=== PATIENT | male | born 1940 | race African-American/Black ===

== ENCOUNTER 2017-05-24 12:38 | Observation (INO) | payer MEDICARE ==
[2017-05-24 13:47] LABS: #Eosinphils 0.1 thou/uL (0.0-0.7); #Lymphocytes 1.9 thou/uL (1.20-3.40); #Monocytes 0.5 thou/uL (0.11-0.59); #Neutrophils 2.8 thou/uL (1.40-6.50); %Basophils 0.3 % (0.0-1.0); %Lymphocytes 35.8 % (21.0-51.0); %Monocytes 8.5 % (0.0-10.0); Hematocrit 38.8 % (42.0-52.0); Mean Platelet Volume 6.8 fL (7.4-10.4); Red Blood Cell (RBC) Count 4.46 mill/uL (4.70-6.10); White Blood Cell (WBC) Count 5.3 thou/uL (4.8-10.8)
--- NOTE | 2017-05-24 13:52 | RAD ---
CHEST ONE VIEW HISTORY: Chest pain. COMPARISON: 02/01/2015 FINDINGS: Cardiac silhouette is magnified by projection. Left hemidiaphragm remains elevated with atelectasis at the left lung base. Pulmonary vasculature is engorged. No evidence of pneumothorax. There are p rominent degenerative changes of each shoulder. 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 IMPRESSION: Chronic type findings are stable. POS: [facility]
[2017-05-24 14:11] LABS: ALT (SGPT) 10 U/L (8-55); AST (SGOT) 15 U/L (5-34); Alkaline Phosphatase 57 U/L (40-150); Anion Gap 11 mmol/L (10-20); BUN (Urea Nitrogen) 22 mg/dL (8.4-25.7); Bilirubin, Total 0.9 mg/dL (0.2-1.2); CK (CPK) 328 U/L (30-200); Calc. Creatinine Clearance 0 mL/min (70-130); Calcium 9.7 mg/dL (7.8-10.44); Carbon Dioxide 28 mmol/L (23-31); Chloride 105 mmol/L (98-107); Estimated GFR-MDRD 64; Protein, Total 7.1 g/dL (5.8-8.1)
[2017-05-24 14:15] LABS: Troponin I 0.013 ng/mL (< 0.028)
--- NOTE | 2017-05-24 17:29 | HP ---
PRIMARY CARE PHYSICIAN: Dr. Ann Freeman. PRIMARY REPLANTING MACHINE CREWMAN: Dr. Williamson. REASON FOR ADMISSION: Chest pain. HISTORY OF PRESENT ILLNESS: A 76-year-old -[place]ian male with history of hypertension, dyslip idemia, diabetes type 2, coronary artery disease, and benign enlargement of prostate, who came to the emergency room for evaluation of chest pain on the right side. The patient reports that for the t one week he was experiencing right breast pain, which was getting worse with palpation. At the time, the patient was experiencing deep pain in his right chest, which was related with exertion an d getting worse with deep breathing, so he was experiencing two different type of pain, one was super ficial and one was deep and he was concerned about heart pain and he was also concerned about maligna ncy and that is why this morning he called his primary care physician who made appointment on coming Sunday and at the same time she also advised to go to the emergency room for evaluation. The patient reports that he denies any shortness of breath, cough, pleuritic chest pain. He denies a ny palpitation, dizziness, syncope. He denies any orthopnea, PND or leg swelling. The patient had a cardiac catheterization with stent placement in 1999 and since then he never had any cardiac testing . He denies any fever or chills. He denies any UTI symptoms. He denies any constipation, diarrhea, melena or hematochezia. Today in the emergency room, patient had full workup done including CBC, BMP, and all came back wu l. His cardiogram was also unremarkable. ALLERGIES: AVOCADO and BANANA. CURRENT HOME MEDICATIONS: Lasix 20 mg p.o. b.i.d., Zocor 20 mg p.o. b.i.d., Coreg 12.5 mg twice yefri y, ramipril 5 mg twice daily, Proscar 1 tablet p.o. daily, Aldactone 25 mg p.o. daily, aspirin 81 mg p.o. daily, Xalatan eyedrops daily, metformin 500 mg p.o. b.i.d., [place] p.r.n., Flomax 0.4 mg p.o. da linh, dorzolamide/timolol ophthalmic drops b.i.d., Sytron oral solution 10 mL 4 times daily. REVIEW OF SYSTEMS: The following complete review of systems was negative, unless otherwise mentioned in the HPI or below: Constitutional: Weight loss or gain, ability to conduct usual activities. Skin: Rash, itching. Eyes: Double vision, pain. ENT/Mouth: Nose bleeding, neck stiffness, pain, tenderness. Cardiovascular: Palpitations, dyspnea on exertion, orthopnea. Respiratory: Shortness of breath, wheezing, cough, hemoptysis, fever or night sweats. Gastrointestinal: Poor appetite, abdominal pain, heartburn, nausea, vomiting, constipation, or diarr hea. Genitourinary: Urgency, frequency, dysuria, nocturia. Musculoskeletal: Pain, swelling. Neurologic/Psychiatric: Anxiety, depression. Allergy/Immunologic: Skin rash, bleeding tendency. Please see my HPI for pertinent positive and negative. All other review of systems reviewed and nega tive except as mentioned in the HPI. PAST MEDICAL HISTORY: History of myocardial infarction in 1999, required total 3 cardiac stent; blin dness in left eye, cataract surgery, glaucoma; diabetes, type 2; hypertension; dyslipidemia; history of diverticulitis; chronic constipation; benign enlargement of prostate; history of TIA. PAST SURGICAL HISTORY: Lithotripsy for kidney stone, left knee surgery, carpal tunnel surgery, septo plasty in 1972, lumbar spine surgery in 2006. PAST PSYCHIATRIC HISTORY: Reviewed and negative. SOCIAL HISTORY: The patient is . He lives at home with his . No history of tobacco, alc ohol or illicit drug abuse. FAMILY HISTORY: Significantly positive for coronary artery disease among several family members. EMERGENCY ROOM COURSE: Reviewed. The patient is given aspirin 325 mg. PHYSICAL EXAMINATION: VITAL SIGNS: On arrival, blood pressure 113/74, pulse 80, respiratory rate 14, temperature 98.5, sat uration 99% on room air, weight 85.2 kilogram. GENERAL: The patient is currently alert, awake, no obvious acute distress. HEAD: Normocephalic, atraumatic. EYES: Pupils are round and reactive to light. Extraocular muscles are intact. ENT: Oropharynx within normal limits. Moist mucous membranes. No oral lesions. No pharyngeal eryt emilie, no exudate. NECK: Supple, no JVD, no thyromegaly, no carotid bruits. LUNGS: Clear to auscultation without any rhonchi or rales. CARDIAC: S1, S2 regular. No murmur, no gallop, no rub. ABDOMEN: Soft, bowel sounds present, nontender, nondistended. No organomegaly, no mass. No suprapu bic tenderness. BACK: Unremarkable. No CVA tenderness. BREAST: Right breast is tender on superficial palpation, but the patient also has deeper pain, which he is not able to describe and that is not reproducible. Left wrist within normal limits. There is no palpable lump on both breast and there is no surrounding erythema or warmth noted. NEUROLOGIC: Nonfocal examination. The patient moves all 4 limbs. Plantar bilateral flexor. PSYCHIATRIC: Normal affect. SKIN: No skin rash. HEMATOLOGIC: No lymphadenopathy. SIGNIFICANT LABORATORY DATA: EKG based on my review, complete right bundle branch block, left atrial enlargement. Chest x-ray based on my review, chronic changes without any acute process. The patien t has elevated left hemidiaphragm with atelectasis of the left lung base. CBC: WBC 5.3, hemoglobin 11.7, platelet 214. BMP: Sodium 139, potassium 4.8, chloride 105, carbon dioxide 28, anion gap 11, BUN 22, creatinine 1.31, glucose 96, calcium 9.7. LFT: AST 15, ALT 10, al kaline phosphatase 57, albumin 4.1, CK 328, CK-MB 4.9, troponin I 0.013. ASSESSMENT AND PLAN: IMPRESSION: 1. Chest pain. The patient has 2 type of chest pain. One chest pain on the right side which is mos t likely mastalgia and I am suspecting fatty tissue related inflammation in his breast. He does not have any surrounding erythema or any suggestive of infection, but he has reproducible pain on the rig ht breast that is clear cut suspecting fatty tissue inflammation related pain. He has different pain , which is deeper on the right side, which he is worried about, which comes and goes and that is why he is worried about heart pain and to rely history of mental stress. He would like to go for stress test to rule out any cardiac etiology and that is why we will try to perform exercise Cardiolite stre ss test. This patient has underlying chronic low back pain. He may not be able to walk on treadmill completely, but he wants to try walking stress test. If he is not able to finish the walking stress test, then we will convert to chemical stress test. We will do serial cardiac enzymes x3 and we curt l check lipid profile for risk stratification. Meanwhile, we will control his pain with the pain med ication. 2. Coronary artery disease with history of stent. The patient is currently evaluated for cardiac wo rkup. We will continue with aspirin 81 mg p.o. daily. We will also continue on nitroglycerin on p.r .n. basis. We will hold on Coreg therapy because we are planning to do stress test tomorrow and afte r stress test we will resume Coreg and ramipril therapy. 3. Dyslipidemia. Check lipid profile tomorrow and continue Zocor 40 mg p.o. at bedtime. 4. Hypertension, currently well controlled. Continue ramipril 5 mg twice daily, Aldactone 25 mg p.o . daily. 5. Benign enlargement of prostate. We will continue Proscar and Flomax as per home dosage. 6. Glaucoma. We will continue Xalatan eyedrops and dorzolamide/timolol ophthalmic eyedrops as per h ome dosage. 7. Chronic kidney disease, stage 3. We will monitor renal function and avoid nephrotoxic agent. 8. Anemia, normocytic, normochromic. Continue multivitamin therapy and ferrous sulfate on a daily b asis after discharge. 9. Deep venous thrombosis prophylaxis not needed because we are expecting discharge in 24 hours. 10. Gastrointestinal prophylaxis, Pepcid 20 mg p.o. b.i.d. CODE STATUS: The patient is FULL CODE. The patient's is surrogate decision maker. Disposition plan based on stress test results, likely within 24 hours. Plan of care discussed with t fatemeh patient and at bedside in the emergency room and answered all their questions.
[2017-05-24] MEDS ORDERED: Nitroglycerin 0.4 MG TAB (25 Tab Bottle) PO PRN (17:38)
[2017-05-24] MEDS ORDERED: Ondansetron HCl/PF 4 MG/2 ML Vial IVP PRN (17:38)
[2017-05-24] MEDS ORDERED: Dextrose 5% in Water 1,000 ML IV PRN (17:38)
[2017-05-24] MEDS ORDERED: Acetaminophen 325 MG TAB PO PRN (17:38)
[2017-05-24] MEDS ORDERED: HYDROcodone/Acetaminophen 5/325 mg Tablet PO PRN (17:38)
[2017-05-24] MEDS ORDERED: Dextrose 50% Abboject 50 ML SYRINGE SLOW IVP PRN (17:38)
[2017-05-24] MEDS ORDERED: Sodium Chloride 0.65% Nasal 44 ML BOT EA NARE PRN (17:38)
[2017-05-24] MEDS ORDERED: HumaLOG 300 UNITS/3 ML VIAL SC PRN ×2 (17:38)
[2017-05-24] MEDS ORDERED: Zolpidem Tartrate 5 MG TAB PO PRN (17:38)
[2017-05-24] MEDS ORDERED: hydrALAZINE 20 MG/ML VIAL SLOW IVP PRN (17:38)
[2017-05-24] MEDS ORDERED: Eucerin (Mineral Oil/Petrolatum,White) 30 gm Jar TOP PRN (17:38)
[2017-05-24] MEDS ORDERED: Mag-Al 1200 mg/1200 mg/30 ML UDCUP PO PRN (17:38)
[2017-05-24] MEDS ORDERED: Diabetic Tussin 200 MG/10 ML UDCUP PO PRN (17:38)
[2017-05-24] MEDS ORDERED: Senokot 8.6 MG TAB PO PRN (17:38)
[2017-05-24] MEDS ORDERED: Milk Of Magnesia 30 ML UDCUP PO PRN (17:38)
[2017-05-24] MEDS ORDERED: Ondansetron ODT 4 MG TAB PO PRN (17:38)
[2017-05-24] MEDS ORDERED: Loperamide HCl 2 MG CAP PO PRN (17:38)
[2017-05-24 17:46] VITALS: BMI 26.4
[2017-05-24] MEDS ORDERED: metFORMIN 500 MG TAB PO SCH (18:00)
[2017-05-24 19:33] LABS: Troponin I 0.013 ng/mL (< 0.028)
[2017-05-24] MEDS: Famotidine 20 MG TAB PO SCH (21:00)
[2017-05-24] MEDS ORDERED: Tamsulosin HCl 0.4 MG CAP PO SCH (21:00)
[2017-05-24] MEDS ORDERED: Simvastatin 40 MG TAB PO SCH (21:00)
[2017-05-24] MEDS: Ramipril 5 MG CAP PO SCH (21:01)
[2017-05-24] MEDS: Dorzolamide HCl/Timolol Maleate 2%/0.5% Ophth Soln 10 ml Bottle R EYE SCH (21:02)
[2017-05-24] MEDS: Dorzolamide HCl/Timolol Maleate 2%/0.5% Ophth Soln 10 ml Bottle L EYE SCH (21:02)
[2017-05-24] MEDS: Latanoprost 0.005% Ophth Soln 2.5 ml Bottle EA EYE SCH (21:02)
[2017-05-24 22:31] LABS: Troponin I 0.016 ng/mL (< 0.028)
[2017-05-25] MEDS ORDERED: Spironolactone 25 MG TAB PO SCH (08:00)
[2017-05-25] MEDS ORDERED: Tamsulosin HCl 0.4 MG CAP PO SCH (09:00)
[2017-05-25] MEDS ORDERED: Aspirin 325 MG TAB PO SCH (09:00)
[2017-05-25] MEDS ORDERED: Finasteride 5 MG TAB PO SCH (09:00)
[2017-05-25] MEDS: metFORMIN 500 MG TAB PO SCH ×2 (09:07→12:29)
--- NOTE | 2017-05-25 09:08 | PDOC.PN ---
- Subjective Encounter Start Date: 05/25/17 Encounter Start Time: 07:20 -: old records requested/rev Patient seen and examined. No new complaints. No overnight events - Objective Resuscitation Status: Resuscitation Status FULL:Full Resuscitation MAR Reviewed: Yes Vital Signs & Weight: Vital Signs (12 hours) Temp Pulse Resp BP BP Pulse Ox 05/25/17 08:07 98.7 F 66 16 05/25/17 07:44 97.9 F 61 16 96/55 L 98 05/25/17 03:10 98.7 F 66 16 104/56 L 96 05/24/17 23:35 98.3 F 72 16 100/57 L 98 Weight Weight 188 lb 14.4 oz I&O: 05/24/17 05/25/17 05/26/17 06:59 06:59 06:59 Intake Total 300 Output Total 400 125 Balance -100 -125 Result Diagrams: 05/24/17 11:34 05/24/17 11:34 Additional Labs: Accuchecks 05/25/17 05/24/17 05/24/17 05:42 20:34 18:46 POC Glucose 76 154 H 78 EKG Reviewed by me: Yes (nsr) Phys Exam - Physical Examination Constitutional: NAD HEENT: PERRLA, moist MMs, sclera anicteric Neck: no JVD, supple Respiratory: no wheezing, no rales, no rhonchi Cardiovascular: RRR, no significant murmur, no rub Gastrointestinal: soft, non-tender, no distention, positive bowel sounds Musculoskeletal: no edema, pulses present Neurological: non-focal, normal sensation, moves all 4 limbs Lymphatic: no nodes Psychiatric: normal affect, A&O x 3 Skin: no rash, normal turgor Dx/Plan (1) Chest pain Code(s): R07.9 - CHEST PAIN, UNSPECIFIED Status: Acute (2) BPH (benign prostatic hyperplasia) Code(s): N40.0 - BENIGN PROSTATIC HYPERPLASIA WITHOUT LOWER URINRY TRACT SYMP Status: Chronic (3) CAD (coronary artery disease) Code(s): I25.10 - ATHSCL HEART DISEASE OF [place] CORONARY ARTERY W/O ANG PCTRS Status: Chronic (4) Diabetes type 2, controlled Code(s): E11.9 - TYPE 2 DIABETES MELLITUS WITHOUT COMPLICATIONS Status: Chronic (5) Glaucoma Code(s): H40.9 - UNSPECIFIED GLAUCOMA Status: Chronic (6) Hypertension Code(s): I10 - ESSENTIAL (PRIMARY) HYPERTENSION Status: Chronic - Plan cont current plan of care * stress test today, if normal, will DC to home * medication reviewed as below * symptomatic treatment. Review of Systems - Review of Systems ENT: negative: Ear Pain, Ear Discharge, Nose Pain, Nose Discharge, Nose Congestion, Mouth Pain, Mouth Swelling, Throat Pain, Throat Swelling, Other Respiratory: negative: Cough, Dry, Shortness of Breath, Hemoptysis, SOB with Excertion, Pleuritic Pain, Sputum, Wheezing Cardiovascular: negative: Chest Pain, Palpitations, Orthopnea, Paroxysmal Noc. Dyspnea, Edema, Light Headedness, Other Gastrointestinal: negative: Nausea, Vomiting, Abdominal Pain, Diarrhea, Constipation, Melena, Hematochezia, Other Genitourinary: negative: Dysuria, Frequency, Incontinence, Hematuria, Retention , Other Musculoskeletal: negative: Neck Pain, Shoulder Pain, Arm Pain, Back Pain, Hand Pain, Leg Pain, Foot Pain, Other - Medications/Allergies Allergies/Adverse Reactions: Allergies Allergy/AdvReac Type Severity Reaction Status Date / Time avocado Allergy THROAT Verified 08/31/14 08:55 SWELLING banana Allergy THROAT Verified 08/31/14 08:55 SWELLING Medications: Current Medications Acetaminophen (Tylenol) 650 mg PO Q4H PRN PRN Reason: Headache/Fever or Pain Hydrocodone Bitart/Acetaminophen ([place] 5/325) 1 tab PO Q4H PRN PRN Reason: Moderate Pain (4-6) Last Admin: 05/24/17 19:51 Dose: 1 tab Al Hydroxide/Mg Hydroxide (Maalox) 30 ml PO Q6H PRN PRN Reason: Heartburn or Indigestion Aspirin (Aspirin) 325 mg PO DAILY [facility] Dextrose/Water (Dextrose 50%) 25 gm SLOW IVP PRN PRN PRN Reason: Hypoglycemia Dorzolamide/Timolol (Cosopt 2-0.5% Ophth Soln) 1 drop L EYE BID [facility] Last Admin: 05/24/17 21:02 Dose: Not Given Dorzolamide/Timolol (Cosopt 2-0.5% Ophth Soln) 1 drop R EYE BID [facility] Last Admin: 05/24/17 21:02 Dose: Not Given Famotidine (Pepcid) 20 mg PO BID [facility] Last Admin: 05/24/17 21:00 Dose: 20 mg Finasteride (Proscar) 5 mg PO DAILY [facility] Glucagon (Glucagon) 1 mg IM PRN PRN PRN Reason: Hypoglycemia Guaifenesin (Robitussin Sf) 200 mg PO Q4H PRN PRN Reason: Cough Hydralazine HCl (Apresoline) 10 mg SLOW IVP Q4H PRN PRN Reason: Systolic BP > 180 Dextrose/Water (D5w) 1,000 mls @ 0 mls/hr IV .Q0M PRN; As Directed PRN Reason: Hypoglycemia Insulin Human Lispro (Humalog) 0 units SC .MODERATE SLIDING SC PRN PRN Reason: Moderate Correctional Scale Insulin Human Lispro (Humalog) 0 units SC .BEDTIME SLIDING SC PRN PRN Reason: Bedtime Correctional Scale Latanoprost (Xalatan 0.005% Ophth Soln) 1 drop EA EYE [facility] Last Admin: 05/24/17 21:02 Dose: Not Given Loperamide HCl (Imodium) 2 mg PO PRN PRN PRN Reason: Diarrhea/Loose Stools Magnesium Hydroxide (Milk Of Magnesium) 30 ml PO DAILYPRN PRN PRN Reason: Constipation Metformin HCl (Glucophage) 500 mg PO BID-[facility] Last Admin: 05/25/17 09:07 Dose: Not Given Mineral Oil/White Petrolatum (Eucerin Cream) 0 gm TOP BIDPRN PRN PRN Reason: Dry Skin Nitroglycerin (Nitrostat) 0.4 mg PO Q5MIN PRN PRN Reason: Chest Pain Ondansetron HCl (Zofran Odt) 4 mg PO Q6H PRN PRN Reason: Nausea/Vomiting Ondansetron HCl (Zofran) 4 mg IVP Q6H PRN PRN Reason: Nausea/Vomiting Ramipril (Altace) 5 mg PO BID [facility] Last Admin: 05/24/17 21:01 Dose: 5 mg Rosuvastatin Calcium (Crestor) 5 mg PO BID [facility] Last Admin: 05/24/17 21:01 Dose: 5 mg Senna (Senokot) 2 tab PO HSPRN PRN PRN Reason: Constipation Sodium Chloride ([place] 0.65%) 0 ml EA NARE QIDPRN PRN PRN Reason: Nasal Congestion Spironolactone (Aldactone) 25 mg PO QAM-[facility] Tamsulosin HCl (Flomax) 0.4 mg PO HS [facility] Last Admin: 05/24/17 21:01 Dose: 0.4 mg Zolpidem Tartrate (Ambien) 5 mg PO HSPRN PRN PRN Reason: Insomnia
[2017-05-25] MEDS: Dorzolamide HCl/Timolol Maleate 2%/0.5% Ophth Soln 10 ml Bottle L EYE SCH (11:37)
[2017-05-25] MEDS: Famotidine 20 MG TAB PO SCH (11:37)
[2017-05-25] MEDS: Ramipril 5 MG CAP PO SCH (11:38)
[2017-05-25] MEDS: Dorzolamide HCl/Timolol Maleate 2%/0.5% Ophth Soln 10 ml Bottle R EYE SCH (11:38)
[2017-05-25 11:46] VITALS: BP 99/54; TEMP 97.6
--- NOTE | 2017-05-25 11:46 | DIS ---
DATE OF ADMISSION: 05/24/2017 DATE OF DISCHARGE: 05/25/2017 PRIMARY CARE PHYSICIAN: Ann Freeman M.D. DISCHARGE DISPOSITION: Home. PRIMARY DISCHARGE DIAGNOSIS: Chest pain, ruled out acute coronary syndrome. SECONDARY DISCHARGE DIAGNOSES: Benign enlargement of prostate; coronary artery disease; diabetes, type 2; glaucoma; hypertension. PRIMARY PROCEDURE/OPERATION: None. RADIOLOGICAL INVESTIGATION: Chest x-ray normal. Stress test result pending. SIGNIFICANT LABORATORY DATA: WBC 5.3, hemoglobin 11.7, platelets 214, sodium 139, creatinine 1.31. CK 328. Cardiac enzymes negative x3. Electrolytes normal. LFTs normal. LDL 51, cholesterol 108, triglyceride 56, HDL 46. DISCHARGE MEDICATIONS: The patient will continue all his previous medications, aspirin 81 mg p.o. daily, Coreg 12.5 mg p.o. b.i.d., Cosopt ophthalmic drop b.i.d., Proscar 5 mg p.o. at bedtime, Lasix 20 mg daily, [place] 7.5 one tablet p.o. as directed p.r.n., Xalatan eye drops at bedtime, metformin 500 mg p.o. b.i.d., ramipril 5 mg p.o. b.i.d., Crestor 5 mg p.o. b.i.d., Aldactone 25 mg p.o. daily, Flomax 0.4 mg p.o. at bedtime. CONTRAINDICATIONS: None. CODE STATUS: FULL CODE. INPATIENT CONSULTANTS: Cardiology ALLERGIES: AVOCADO AND BANANA. DISCHARGE PLAN: Post hospital, the patient will follow up with primary care physician in 1 week. HOSPITAL COURSE: A 76-year-old male who was admitted for chest pain. Please see my HPI for further details. His chest pain description was noncardiac. For benefit of doubt, we tried to do stress test. His EKG was unremarkable. His cardiac enzymes were negative. His telemetry remained unremarkable. His pain was controlled with pain medication. He underwent stress test today. If stress is negative, then we will consider discharging him home later on today with the same home medications. The patient is seen and examined at bedside today. Please see my progress note from today for further details. stress test showed some geovany-nfarct ischemia, so cardiology consulted. stress test is unchanged from previous as per cardiology and they cleared for discharge. [facility]
[2017-05-25] MEDS: Latanoprost 0.005% Ophth Soln 2.5 ml Bottle EA EYE SCH (12:29)
--- NOTE | 2017-05-25 14:11 | NM ---
NUCLEAR MEDICINE CARDIAC STRESS TEST WITH EJECTION FRACTION: HISTORY: Chest pain, hypertension, dyslipidemia, diabetes, coronary artery disease. COMPARISON: None. TECHNIQUE: Stress and rest performed after the intravenous administration of 33 and 9.8 mCi Technetium 99m sesta mibi intravenously, respectively. FINDINGS: There is a large scar of the inferior wall and anterior wall of the lateral ventricle with periinfarc t ischemia of the anterior wall at the base. There akinesia of the apex and mid portion of the later al ventricle. The ejection fraction is 35%. IMPRESSION: Large volume scar of the inferior wall and anterior wall of the lateral ventricle with periinfarct is chemia of the anterior wall near the base. There is also akinesia of the apex with poor ejection fra ction of 35%. POS: [facility]
[2017-05-25] MEDS ORDERED: ADENOSINE 60 MG/20 ML VIAL ONE (15:25)
--- NOTE | 2017-05-25 15:53 | CON ---
DATE OF CONSULTATION: 05/25/2017 REASON FOR CONSULTATION: Atypical chest pain, history of SC and scar to the anterior inferior wall. REFERRING PROVIDER: Duncan Messina M.D. HISTORY OF PRESENT ILLNESS: Lalo is a 76-year-old gentleman who is a patient of Dr. Vito chappell. He has a previous history of a myocardial infarction in 1999, status post stent placement. He re cently presented with right breast pain. He states it was painful to palpation. He called his prima provider's office and was recommended he proceed to the emergency room given a history of coronary artery disease. He states that the pain has improved. His stress study did suggest a large scar present to the mid t o distal anterior wall apex and distal inferior wall. PAST MEDICAL HISTORY: Cataract surgery, glaucoma, previous SC, diabetes mellitus, and hypertension, diverticulitis, chronic constipation, and BPH. SOCIAL HISTORY: No current tobacco or alcohol use. FAMILY HISTORY: Positive for CAD. HOME MEDICATIONS: [place], Flomax, rosuvastatin, Cosopt, aspirin, Aldactone, Lasix, ramipril, finaster viviane, and metformin. REVIEW OF SYSTEMS: Ten-point review of systems is reviewed and is as above, otherwise negative. PHYSICAL EXAMINATION: VITAL SIGNS: Blood pressure 99/54, pulse 80, respirations 20. GENERAL: Patient is a pleasant male/female who is in no acute distress. The patient appears his sta tres age. NEUROLOGIC: The patient is alert and oriented times 3 with no focal neurologic deficits. HEENT: Sclerae without icterus. Mouth has moist mucous membranes with normal pallor. NECK: No JVD. Carotid upstroke brisk. No bruits bilaterally. LUNGS: Clear to auscultation with unlabored respirations. BACK: No scoliosis or kyphosis. CARDIAC: Regular rate and rhythm with normal S1 and S2. No S3 or S4 noted. No significant rubs, mu rmurs, thrills, or gallops noted throughout the precordium. PMI is not displaced. There is no kyaw ternal heave. ABDOMEN: Soft, nontender, nondistended. No peritoneal signs present. No hepatosplenomegaly. No ab normal striae. EXTREMITIES: 2+ femoral and 2+ dorsalis pedis pulses. No cyanosis, clubbing, or edema. SKIN: No gross abnormalities. PERTINENT LABS: Hemoglobin 11.7. Stress test myocardial perfusion study as above. IMPRESSION: 1. Atypical chest pain. 2. Previous myocardial infarction. 3. Scar to the anterior wall. RECOMMENDATIONS: I compared Mr. May's recent stress study to his stress study dated 2014. No s ignificant changes are noted. His symptoms are reproducible and improving. From a cardiac standpoin t, I have no further recommendations. He will continue current medical therapy as prescribed by Dr. Vito Williamson. Plan is to follow up with Dr. Vito Williamson in the next 1-2 weeks. I also discussed ICD placement with Mr. May. He has been opposed to ICD in the past. He would like to discuss further with Dr. Vito Williamson. At this point, he declined AICD.
== END 2017-05-25 14:49 | disposition home or self-care (01) ==
LOC: ERS 12:38 → 2SW 17:27
PROVIDERS: ADMIT Internal Medicine; ATTEND Internal Medicine
DX: R07.89 Other chest pain (principal); I10 Essential (primary) hypertension; E78.5 Hyperlipidemia, unspecified; E11.9 Type 2 diabetes mellitus without complications; I25.10 Atherosclerotic heart disease of native coronary artery without angina pectoris; N40.0 Benign prostatic hyperplasia without lower urinary tract symptoms; I25.2 Old myocardial infarction; H54.7 Unspecified visual loss; H40.9 Unspecified glaucoma; Z91.018 Allergy to other foods; Z79.84 Long term (current) use of oral hypoglycemic drugs; Z79.899 Other long term (current) drug therapy; Z95.5 Presence of coronary angioplasty implant and graft; Z98.890 Other specified postprocedural states; Z86.73 Personal history of transient ischemic attack (TIA), and cerebral infarction without residual deficits
CPT/HCPCS: 71010; 78452; 80053; 80061; 82550; 82553; 82962 ×2; 84484 ×2; 85025; 93005; 93017; 99285; A9500; G0378; 36415; 36416; J0153

== ENCOUNTER 2017-06-08 07:33 | Outpatient (CLI) | payer MEDICARE | END 2017-06-08 07:34 | disposition home or self-care (01) | LOC: BICMAMMO 07:33 | PROVIDERS: ATTEND Internal Medicine | DX: N63.10 Unspecified lump in the right breast, unspecified quadrant (principal); N62 Hypertrophy of breast | CPT/HCPCS: G0204; G0279; 77066 ==

== ENCOUNTER 2017-06-30 09:52 | Inpatient (IN) | payer MEDICARE ==
[2017-06-30 10:49] LABS: #Eosinphils 0.1 thou/uL (0.0-0.7); #Lymphocytes 2.1 thou/uL (1.20-3.40); #Monocytes 0.6 thou/uL (0.11-0.59); #Neutrophils 2.9 thou/uL (1.40-6.50); %Basophils 0.6 % (0.0-1.0); %Eosinophils 2.5 % (0.0-10.0); %Lymphocytes 36.1 % (21.0-51.0); %Monocytes 9.6 % (0.0-10.0); %Neutrophils 51.2 % (42.0-75.0); Hemoglobin 11.8 g/dL (14.0-18.0); Mean Corpuscular HGB CONC 32.8 g/dL (32.0-36.0); Mean Corpuscular Hemoglobin 28.7 pg (27.0-31.0); Mean Corpuscular Volume 87.6 fl (80.0-94.0); Mean Platelet Volume 7.6 fL (7.4-10.4); Platelet Count 212 thou/uL (130-400); RBC Distribution Width 13.6 % (11.5-14.5); Red Blood Cell (RBC) Count 4.13 mill/uL (4.70-6.10); White Blood Cell (WBC) Count 5.7 thou/uL (4.8-10.8)
[2017-06-30] MEDS ORDERED: Nitroglycerin 0.4 MG TAB (25 Tab Bottle) ONE (10:53)
[2017-06-30 11:13] LABS: ALT (SGPT) 16 U/L (8-55); AST (SGOT) 19 U/L (5-34); Alkaline Phosphatase 58 U/L (40-150); Anion Gap 14 mmol/L (10-20); BUN (Urea Nitrogen) 19 mg/dL (8.4-25.7); Bilirubin, Total 0.7 mg/dL (0.2-1.2); CK (CPK) 312 U/L (30-200); Calc. Creatinine Clearance 0 mL/min (70-130); Calcium 9.8 mg/dL (7.8-10.44); Carbon Dioxide 25 mmol/L (23-31); Chloride 105 mmol/L (98-107); Estimated GFR-MDRD 52; Globulin 2.8 g/dL (2.4-3.5); Glucose 145 mg/dL (83-110); Potassium 4.4 mmol/L (3.5-5.1); Protein, Total 6.8 g/dL (5.8-8.1); Sodium 140 mmol/L (136-145)
[2017-06-30 11:14] LABS: Troponin I Less than 0.010 ng/mL (< 0.028)
--- NOTE | 2017-06-30 11:29 | RAD ---
PORTABLE CHEST: HISTORY: Chest pain. COMPARISON: 05/24/17. FINDINGS: Elevated left hemidiaphragm is again noted with gas-filled bowel under the left hemidiaphragm. Lungs remain clear. No evidence of vascular congestion. Heart size upper normal and stable. No int erval change noted. IMPRESSION: No acute finding. POS: [facility]
[2017-06-30] MEDS ORDERED: Lidocaine 2% Viscous Solution 20 ML, Aluminum & Magnesium Hydroxide 30 ML, Donnatal Eli... SSW SCH ×3 (11:30)
[2017-06-30] MEDS ORDERED: Dextrose 50% Abboject 50 ML SYRINGE SLOW IVP PRN ×2 (12:34→12:35)
[2017-06-30] MEDS ORDERED: Dextrose 5% in Water 1,000 ML IV PRN ×2 (12:34→12:35)
[2017-06-30] MEDS ORDERED: HumaLOG 300 UNITS/3 ML VIAL SC PRN (12:35)
[2017-06-30] MEDS ORDERED: HYDROcodone/Acetaminophen 7.5/325 mg Tablet PO PRN (12:36)
--- NOTE | 2017-06-30 13:12 | HP ---
DATE OF SERVICE: 06/30/2017 CHIEF COMPLAINT: Chest pain. HISTORY OF PRESENT ILLNESS: A 76-year-old male presenting with substernal discomfort. The patient s tates that he has had these episodes before, but not in this intensity. The patient states that he h ad prior histories of feeling weird and chest discomfort about 17 years ago at which point in time, [place] received 3 cardiac stents. The patient currently states he feels well, does not have the discomfor t, pain and complaints lasted for a few minutes, less than 30 minutes. The patient states that other palacio he also has history of diabetes, high blood pressure, high cholesterol, and prostate issues. Nicola brice denies any alleviating or aggravating symptoms. The patient denies any other associated compla ints or issues. Family at bedside. The patient was seen and examined. All questions answered. DRUG ALLERGIES: No known drug allergies. HOME MEDICATIONS: See MAR. PAST MEDICAL HISTORY: Hypertension, diabetes mellitus type 2, hyperlipidemia, coronary artery diseas e with cardiac stenting, benign prostatic hypertrophy. PAST SURGICAL HISTORY: Cardiac stent placements x3, 17 years ago. FAMILY HISTORY: Positive for prostate cancer, pancreatic cancer, hypertension, hyperlipidemia, coron angelica artery disease, cardiomyopathy, cardiac infarction, stroke, diabetes mellitus type 2. SOCIAL HISTORY: The patient denies any smoking, drinking or alcohol. The patient denies any exposur e to toxic chemicals at work as well. PHYSICAL EXAMINATION: VITAL SIGNS: Blood pressure 144/88, respiratory rate 18, temperature 97, heart rate 88. GENERAL: The patient is lying in bed, awake, oriented x3. HEENT: Pupils equal, round, reactive to light and accommodation. Normocephalic, atraumatic head. O ral cavity moist and pink. NECK: Supple, palpable, mobile, nontender thyroid. CARDIOVASCULAR: Regular rate and rhythm. S1 and S2. No murmurs, rubs or gallops appreciated. PULMONARY: Clear to auscultation bilaterally. Normal AP diameter. ABDOMEN: Positive bowel sounds, soft, nontender, nondistended. EXTREMITIES: 2+ peripheral pulses. Trace edema noted on bilateral lower extremities. NEUROLOGIC: CN II-XII intact. No loss of motor or sensory function. LABORATORY DATA: CBC within normal limits. BMP within normal limits. Creatinine slightly elevated at 1.57. Troponins negative x1. ASSESSMENT AND PLAN: 1. Chest pain. 2. Gastroesophageal reflux disease. 3. History of coronary artery disease with cardiac stenting. 4. Diabetes mellitus type 2. 5. Hypertension. 6. Hyperlipidemia. At this point in time, we will admit to Internal Medicine team, telemetry monitoring for 24 hours. T rend enzymes if cardiac enzymes are negative x3. The patient is symptomatically improved. He likely had noncardiac chest pain secondary to GERD. At that point in time, we will discharge the patient and follow up with Dr. Williamson as outpatient, h is car blocker, for probable stress test needed. If troponins trend positive, we will consult Cardiology and treat his NSTEMI. Case and plan discussed with patient and family at length. They understand and agree with this plan.
[2017-06-30 13:29] LABS: Hemoglobin A1c 5.6 % (4.0-6.0)
[2017-06-30 15:14] LABS: Troponin I 0.086 ng/mL (< 0.028)
[2017-06-30 16:08] VITALS: BMI 26.9
[2017-06-30] MEDS: Carvedilol 6.25 MG TAB PO SCH (18:17)
[2017-06-30] MEDS: Finasteride 5 MG TAB PO SCH (20:55)
[2017-06-30] MEDS: Dorzolamide HCl/Timolol Maleate 2%/0.5% Ophth Soln 10 ml Bottle EA EYE SCH (20:55)
[2017-06-30] MEDS: Latanoprost 0.005% Ophth Soln 2.5 ml Bottle EA EYE SCH (20:56)
[2017-06-30] MEDS: Heparin 5,000 UNITS/ML VIAL SC SCH ×2 (20:56→21:05)
[2017-06-30] MEDS: Rosuvastatin 5 MG TAB PO SCH (20:58)
[2017-06-30] MEDS: Ramipril 5 MG CAP PO SCH (20:58)
[2017-06-30] MEDS ORDERED: Tamsulosin HCl 0.4 MG CAP PO SCH (21:00)
[2017-06-30 23:35] LABS: Troponin I 2.578 ng/mL (< 0.028)
[2017-07-01] MEDS ORDERED: Nitroglycerin 0.4 MG TAB (25 Tab Bottle) ONE (05:20)
[2017-07-01 08:23] LABS: Anion Gap 10 mmol/L (10-20); BUN (Urea Nitrogen) 22 mg/dL (8.4-25.7); Calc. Creatinine Clearance 49 mL/min (70-130); Calcium 9.5 mg/dL (7.8-10.44); Carbon Dioxide 30 mmol/L (23-31); Chloride 104 mmol/L (98-107); Estimated GFR-MDRD 55; Glucose 101 mg/dL (83-110); Potassium 4.2 mmol/L (3.5-5.1); Sodium 140 mmol/L (136-145)
[2017-07-01 08:31] LABS: Troponin I 44.995 ng/mL (< 0.028)
[2017-07-01] MEDS ORDERED: Aspirin 81 mg Enteric Coated Tablet PO SCH (09:00)
[2017-07-01] MEDS: Spironolactone 25 MG TAB PO SCH (09:25)
[2017-07-01] MEDS: Carvedilol 6.25 MG TAB PO SCH ×2 (09:25→16:40)
[2017-07-01] MEDS: Ramipril 5 MG CAP PO SCH ×2 (09:26→20:14)
[2017-07-01] MEDS: Dorzolamide HCl/Timolol Maleate 2%/0.5% Ophth Soln 10 ml Bottle EA EYE SCH ×2 (09:26→20:13)
[2017-07-01] MEDS: Heparin 5,000 UNITS/ML VIAL SC SCH (09:30)
[2017-07-01] MEDS ORDERED: Nitroglycerin 0.4 MG TAB (25 Tab Bottle) SL PRN (10:13)
[2017-07-01] MEDS ORDERED: Diabetic Tussin DM 5 ML UDCUP PO PRN (10:13)
[2017-07-01] MEDS ORDERED: Mag-Al 1200 mg/1200 mg/30 ML UDCUP PO PRN (10:13)
[2017-07-01] MEDS ORDERED: Acetaminophen 325 MG TAB PO PRN (10:13)
[2017-07-01] MEDS ORDERED: Zolpidem Tartrate 5 MG TAB PO PRN (10:15)
[2017-07-01] MEDS ORDERED: Bisacodyl 5 MG TAB PO PRN (10:15)
[2017-07-01] MEDS ORDERED: Milk Of Magnesia 30 ML UDCUP PO PRN (10:15)
[2017-07-01] MEDS ORDERED: Aspirin 300 MG Suppository PR SCH (10:15)
[2017-07-01] MEDS ORDERED: Ondansetron HCl/PF 4 MG/2 ML Vial IVP PRN (10:15)
[2017-07-01] MEDS ORDERED: Clopidogrel Bisulfate 300 MG TAB PO SCH (10:15)
[2017-07-01] MEDS ORDERED: Aspirin 325 mg Enteric Coated Tablet PO SCH (10:15)
[2017-07-01] MEDS ORDERED: Bisacodyl 10 MG SUPP PR PRN (10:15)
[2017-07-01] MEDS ORDERED: Heparin 10,000 UNITS/ 10 ML VIAL SLOW IVP SCH ×2 (10:15→22:30)
[2017-07-01 10:16] LABS: Troponin I 51.251 ng/mL (< 0.028)
--- NOTE | 2017-07-01 10:53 | PDOC.PN ---
- Subjective Encounter Start Date: 07/01/17 Encounter Start Time: 10:48 Patient seen and examined, no new issues or complaints, denies any cardiac complaints. - Objective Vital Signs & Weight: Vital Signs (12 hours) Temp Pulse Resp BP BP Pulse Ox 07/01/17 09:26 162/69 H 07/01/17 09:25 162/69 H 07/01/17 07:59 98.2 F 65 16 07/01/17 07:36 98.2 F 65 16 103/58 L 99 07/01/17 05:05 109/77 07/01/17 04:00 98.8 F 68 20 97/54 L 96 06/30/17 23:30 98.4 F 71 14 95/52 L 95 Weight Weight 187 lb 6.287 oz I&O: 06/30/17 07/01/17 07/02/17 06:59 06:59 06:59 Intake Total 560 Output Total 750 Balance -190 Result Diagrams: 06/30/17 10:36 07/01/17 07:43 Additional Labs: Accuchecks 07/01/17 06/30/17 06/30/17 05:18 21:00 17:01 POC Glucose 100 103 207 H Phys Exam - Physical Examination Constitutional: NAD HEENT: PERRLA, moist MMs Neck: no nodes, no JVD Respiratory: no wheezing, no rales Cardiovascular: RRR, no significant murmur Gastrointestinal: soft, non-tender Musculoskeletal: no edema, pulses present Neurological: non-focal, normal sensation Psychiatric: normal affect, A&O x 3 Skin: no rash, normal turgor Dx/Plan (1) NSTEMI (non-ST elevated myocardial infarction) Code(s): I21.4 - NON-ST ELEVATION (NSTEMI) MYOCARDIAL INFARCTION Status: Acute (2) Chest pain Code(s): R07.9 - CHEST PAIN, UNSPECIFIED Status: Acute (3) BPH (benign prostatic hyperplasia) Code(s): N40.0 - BENIGN PROSTATIC HYPERPLASIA WITHOUT LOWER URINRY TRACT SYMP Status: Chronic (4) CAD (coronary artery disease) Code(s): I25.10 - ATHSCL HEART DISEASE OF [place] CORONARY ARTERY W/O ANG PCTRS Status: Chronic (5) Diabetes type 2, controlled Code(s): E11.9 - TYPE 2 DIABETES MELLITUS WITHOUT COMPLICATIONS Status: Chronic (6) Hypertension Code(s): I10 - ESSENTIAL (PRIMARY) HYPERTENSION Status: Chronic - Plan * ACS protocol (full dose heparin, dual antiplatelets, statin) * call cardiology * patient currently clinically stable no chest pain vital signs stable * will likely need cardiac cath * case and plan d/w patient and family at length, they understand and agree with this plan
[2017-07-01] MEDS: Heparin 25,000 units/D5W 500 ML IV SCH ×2 (11:15→20:40)
[2017-07-01] MEDS ORDERED: Diazepam 5 MG TAB PO SCH (12:45)
[2017-07-01] MEDS ORDERED: Communication Order-Pharmacy FS SCH (12:45)
[2017-07-01] MEDS: Furosemide 20 MG TAB PO SCH (12:57)
[2017-07-01] MEDS: Nitroglycerin 2% Ointment 1 INCH/1 GM Packet TOP SCH ×3 (13:43→21:40)
[2017-07-01] MEDS ORDERED: Tamsulosin HCl 0.4 MG CAP PO SCH (14:15)
--- NOTE | 2017-07-01 15:32 | CON ---
DATE OF CONSULTATION: 07/01/2017 HISTORY OF PRESENT ILLNESS: The patient is a 76-year-old gentleman with a history of coronary artery disease who presents with recurrent chest discomfort. The patient had previously suffered a myocardial infarction in the year 1999. He had several stents placed. The patient has done well on medical therapy. A month ago, he was admitted with atypical chest and underwent a stress test which revealed scar and no evidence of ischemia. The patient presents with chest discomfort. He reports having midsternal chest discomfort. He received nitroglycerin and with eventual resolution of his chest discomfort. PAST MEDICAL HISTORY: 1. Coronary artery disease. 2. Cardiomyopathy. 3. Hypertension. 4. Dyslipidemia. 5. Diabetes mellitus. PAST SURGICAL HISTORY: Knee surgery, carpal tunnel syndrome, and septoplasty. SOCIAL HISTORY: Nonsmoker. FAMILY HISTORY: Strong family history of heart disease. MEDICATIONS ON ADMISSION: Ramipril 5 b.i.d., aspirin 81 daily, Coreg 12.5 daily , finasteride 5 mg daily, Lasix 20 daily, metformin 500 mg daily, Crestor 5 mg p.o. b.i.d. and Flomax 0.4 daily. ALLERGIES: Allergic to AVOCADO and BANANAS. REVIEW OF SYSTEMS: Ten-point system otherwise unremarkable. No history of easy bruising or bleeding. PHYSICAL EXAMINATION: GENERAL: This is an elderly gentleman in no acute distress. Blood pressure 105 /67. NECK: No jugular venous distention, no carotid bruits. LUNGS: Clear to auscultation. HEART: Regular rate and rhythm, normal S1, S2 with a 2/6 systolic murmur. ABDOMEN: Nondistended. EXTREMITIES: Showed no edema. SKIN: Warm and dry. NEUROLOGIC: Nonfocal. VASCULAR: Radial pulses are 2+. LABORATORY DATA: Sodium 140, potassium 4.2, chloride 104, bicarbonate 30, BUN 22, creatinine 1.49. Troponin was 51.2. His white blood count 5.7, hemoglobin 11.8, hematocrit 36.1, platelets are 212. His EKG revealed a right bundle branch block with Q-waves suggestive of previous anterior infarct, normal sinus rhythm, right bundle branch block, Q-wave shift previous septal infarct and T- wave abnormality suggestive of ischemia. IMPRESSION: 1. Non-Q-wave myocardial infarction. 2. Ischemic heart myopathy. 3. Hypertension. 4. Renal insufficiency. 5. Diabetes mellitus. 6. Dyslipidemia. This gentleman presents with a non-Q-wave myocardial infarction. He has been treated with aspirin, Plavix, and heparin. I have recommended the patient proceed with a cardiac catheterization to evaluate whether he has developed progressive coronary artery disease. I have explained the risks involving cardiac catheterization including OR, bleeding, stroke, cardiac arrhythmias, and cardiac . The patient understands these risks and wishes to proceed. I have also recommended previously that he had placement of automatic implantable cardiac defibrillator, and I would once again recommend that he undergo this procedure. We will follow this patient with you through hospitalization. RAFAT
[2017-07-01 18:09] LABS: PTT 180.1 SEC (22.9-36.1)
[2017-07-01] MEDS: Finasteride 5 MG TAB PO SCH (20:08)
[2017-07-01] MEDS: Docusate 100 MG CAP PO SCH (20:12)
[2017-07-01] MEDS: Tamsulosin HCl 0.4 MG CAP PO SCH (20:13)
[2017-07-01] MEDS: Rosuvastatin 5 MG TAB PO SCH (20:14)
[2017-07-01] MEDS: Latanoprost 0.005% Ophth Soln 2.5 ml Bottle EA EYE SCH (20:14)
[2017-07-01] MEDS ORDERED: Heparin 25,000 units/D5W 500 ML IV SCH (22:30)
[2017-07-02] MEDS ORDERED: Diazepam 5 MG TAB PO SCH (03:00)
[2017-07-02] MEDS: Sodium Chloride 0.9% 1,000 ML IV SCH ×2 (05:03→20:10)
[2017-07-02] MEDS: Carvedilol 6.25 MG TAB PO SCH (05:04)
[2017-07-02] MEDS: Tamsulosin HCl 0.4 MG CAP PO SCH ×2 (05:04→21:26)
[2017-07-02] MEDS: Ramipril 5 MG CAP PO SCH ×2 (05:05→21:26)
[2017-07-02] MEDS: Docusate 100 MG CAP PO SCH ×2 (05:05→21:27)
[2017-07-02] MEDS: Spironolactone 25 MG TAB PO SCH (05:05)
[2017-07-02] MEDS: Clopidogrel Bisulfate 75 MG TAB PO SCH (05:05)
[2017-07-02] MEDS: Carvedilol 25 MG TAB PO SCH ×2 (07:14→16:33)
[2017-07-02] MEDS: Dorzolamide HCl/Timolol Maleate 2%/0.5% Ophth Soln 10 ml Bottle EA EYE SCH ×3 (07:14→16:38)
[2017-07-02] MEDS: Aspirin 325 mg Enteric Coated Tablet PO SCH (07:21)
[2017-07-02] MEDS ORDERED: Ondansetron HCl/PF 4 MG/2 ML Vial ONE (08:39)
[2017-07-02] MEDS ORDERED: Midazolam HCl 2 mg/2 ml Vial ONE (08:39)
[2017-07-02] MEDS ORDERED: Aspirin 300 MG Suppository PR SCH (09:00)
[2017-07-02] MEDS ORDERED: Acetaminophen/Codeine 30-300mg Tablet PO PRN ×2 (09:09)
[2017-07-02] MEDS ORDERED: traMADol HCl 50 MG TAB PO PRN (09:09)
[2017-07-02] MEDS ORDERED: Nitroglycerin 0.4 MG TAB (25 Tab Bottle) SL PRN (09:09)
[2017-07-02] MEDS ORDERED: Sodium Chloride 0.9% 200 ML IV PRN (09:15)
--- NOTE | 2017-07-02 11:51 | PDOC.PN ---
- Subjective Encounter Start Date: 07/02/17 Encounter Start Time: 07:20 -: old records requested/rev Patient seen and examined. No new complaints. No overnight events - Objective MAR Reviewed: Yes Vital Signs & Weight: Vital Signs (12 hours) Temp Pulse Resp BP Pulse Ox 07/02/17 09:30 97.9 F 64 20 99/57 L 100 07/02/17 08:00 97.9 F 64 20 100 07/02/17 07:56 97.6 F 60 16 80/46 L 99 07/02/17 04:00 98.0 F 69 18 104/62 99 07/02/17 00:00 98.3 F 68 16 92/54 L 96 I&O: 07/01/17 07/02/17 07/03/17 06:59 06:59 06:59 Intake Total 732 Output Total 125 Balance 607 Result Diagrams: 06/30/17 10:36 07/01/17 07:43 Additional Labs: Accuchecks 07/02/17 07/02/17 07/01/17 11:01 05:02 20:23 POC Glucose 132 H 105 121 H 07/01/17 07/01/17 17:30 10:38 POC Glucose 150 H 98 Radiology Reviewed by me: Yes (echo) EKG Reviewed by me: Yes (nsr) Phys Exam - Physical Examination Constitutional: NAD HEENT: PERRLA, moist MMs, sclera anicteric Neck: no JVD, supple Respiratory: no wheezing, no rales, no rhonchi Cardiovascular: RRR, no significant murmur, no rub Gastrointestinal: soft, non-tender, no distention, positive bowel sounds Musculoskeletal: no edema, pulses present Neurological: non-focal, normal sensation Lymphatic: no nodes Psychiatric: normal affect, A&O x 3 Skin: no rash, normal turgor Dx/Plan (1) NSTEMI (non-ST elevated myocardial infarction) Code(s): I21.4 - NON-ST ELEVATION (NSTEMI) MYOCARDIAL INFARCTION Status: Acute (2) Ischemic cardiomyopathy Code(s): I25.5 - ISCHEMIC CARDIOMYOPATHY Status: Acute (3) BPH (benign prostatic hyperplasia) Code(s): N40.0 - BENIGN PROSTATIC HYPERPLASIA WITHOUT LOWER URINRY TRACT SYMP Status: Chronic (4) CAD (coronary artery disease) Code(s): I25.10 - ATHSCL HEART DISEASE OF [place] CORONARY ARTERY W/O ANG PCTRS Status: Chronic (5) Diabetes type 2, controlled Code(s): E11.9 - TYPE 2 DIABETES MELLITUS WITHOUT COMPLICATIONS Status: Chronic (6) Glaucoma Code(s): H40.9 - UNSPECIFIED GLAUCOMA Status: Chronic (7) Hypertension Code(s): I10 - ESSENTIAL (PRIMARY) HYPERTENSION Status: Chronic - Plan cont current plan of care, plan discussed w/ family * today s/p cardiac cath * cardiology following * medical therapy advised * medication reviewed as below * symptomatic treatment. Review of Systems - Review of Systems ENT: negative: Ear Pain, Ear Discharge, Nose Pain, Nose Discharge, Nose Congestion, Mouth Pain, Mouth Swelling, Throat Pain, Throat Swelling, Other Respiratory: negative: Cough, Dry, Shortness of Breath, Hemoptysis, SOB with Excertion, Pleuritic Pain, Sputum, Wheezing Cardiovascular: negative: chest pain, palpitations, orthopnea, paroxysmal nocturnal dyspnea, edema, light headedness, other Gastrointestinal: negative: Nausea, Vomiting, Abdominal Pain, Diarrhea, Constipation, Melena, Hematochezia, Other Genitourinary: negative: Dysuria, Frequency, Incontinence, Hematuria, Retention , Other Musculoskeletal: negative: Neck Pain, Shoulder Pain, Arm Pain, Back Pain, Hand Pain, Leg Pain, Foot Pain, Other Skin: negative: Rash, Lesions, Malick, Bruising, Other - Medications/Allergies Allergies/Adverse Reactions: Allergies Allergy/AdvReac Type Severity Reaction Status Date / Time avocado Allergy THROAT Verified 08/31/14 08:55 SWELLING banana Allergy THROAT Verified 08/31/14 08:55 SWELLING Medications: Current Medications Acetaminophen (Tylenol) 650 mg PO Q4H PRN PRN Reason: Headache/Fever or Pain Acetaminophen/Codeine Phosphate (Tylenol #3) 1 tab PO Q4H PRN PRN Reason: Mild Pain (1-3) Acetaminophen/Codeine Phosphate (Tylenol #3) 2 tab PO Q4H PRN PRN Reason: Moderate Pain (4-6) Hydrocodone Bitart/Acetaminophen ([place] 7.5/325) 1 tab PO ASDIR PRN PRN Reason: Pain Al Hydroxide/Mg Hydroxide (Maalox) 30 ml PO Q4H PRN PRN Reason: Constipation Aspirin (Ecotrin) 325 mg PO DAILY [facility] Last Admin: 07/02/17 07:21 Dose: 325 mg Bisacodyl (Dulcolax) 10 mg PO DAILYPRN PRN PRN Reason: Constipation Bisacodyl (Dulcolax) 10 mg [place] DAILYPRN PRN PRN Reason: Constipation Carvedilol (Coreg) 12.5 mg PO BID-[facility] Last Admin: 07/02/17 07:14 Dose: Not Given Clopidogrel Bisulfate (Plavix) 75 mg PO DAILY [facility] Last Admin: 07/02/17 05:05 Dose: 75 mg Dextrose/Water (Dextrose 50%) 25 gm SLOW IVP PRN PRN PRN Reason: Hypoglycemia Diazepam (Valium) 5 mg PO 0300 [facility] Stop: 07/02/17 15:00 Last Admin: 07/02/17 10:31 Dose: Not Given Docusate Sodium (Colace) 100 mg PO BID [facility] Last Admin: 07/02/17 05:05 Dose: 100 mg Dorzolamide/Timolol (Cosopt 2-0.5% Ophth Soln) 1 drop EA EYE BID [facility] Last Admin: 07/02/17 07:14 Dose: Not Given Finasteride (Proscar) 5 mg PO HS [facility] Last Admin: 07/01/17 20:08 Dose: Not Given Furosemide (Lasix) 20 mg PO DAILY [facility] Last Admin: 07/01/17 12:57 Dose: 20 mg Glucagon (Glucagon) 1 mg IM PRN PRN PRN Reason: Hypoglycemia Guaifenesin/Dextromethorphan (Diabetic Tussin Dm) 15 ml PO Q4H PRN PRN Reason: Cough Dextrose/Water (D5w) 1,000 mls @ 0 mls/hr IV .Q0M PRN; As Directed PRN Reason: Hypoglycemia Sodium Chloride (Normal Saline 0.9%) 1,000 mls @ 75 mls/hr IV .[id number] [facility] Last Admin: 07/02/17 05:03 Dose: 1,000 mls Sodium Chloride (Normal Saline 0.9%) 200 mls @ 0 mls/hr IV ONE PRN; As Directed PRN Reason: Bolus PRN SBP < 90 mm Hg Stop: 07/05/17 09:16 Insulin Human Lispro (Humalog) 0 units SC .MILD SLIDING SCALE PRN PRN Reason: Mild Correctional Scale Latanoprost (Xalatan 0.005% Ophth Soln) 1 drop EA EYE [facility] Last Admin: 07/01/17 20:14 Dose: 1 drop Magnesium Hydroxide (Milk Of Magnesium) 30 ml PO BIDPRN PRN PRN Reason: Constipation Nitroglycerin (Nitro-Bid 2% Ointment) 0.5 inch TOP Q8HR [facility] Last Admin: 07/01/17 21:40 Dose: Not Given Nitroglycerin (Nitrostat) 0.4 mg SL Q5MIN PRN PRN Reason: Chest Pain Nitroglycerin (Nitrostat) 0.4 mg SL Q5MIN PRN PRN Reason: Chest Pain Ondansetron HCl (Zofran) 4 mg IVP Q12H PRN PRN Reason: Nausea/Vomiting Ramipril (Altace) 5 mg PO BID [facility] Last Admin: 07/02/17 05:05 Dose: 5 mg Rosuvastatin Calcium (Crestor) 5 mg PO [facility] Last Admin: 07/01/17 20:14 Dose: 5 mg Sodium Chloride (Flush - Normal Saline) 10 ml IVF Q12HR [facility] Last Admin: 07/02/17 05:05 Dose: Not Given Sodium Chloride (Flush - Normal Saline) 10 ml IVF PRN PRN PRN Reason: Saline Flush Spironolactone (Aldactone) 25 mg PO DAILY [facility] Last Admin: 07/02/17 05:05 Dose: Not Given Tamsulosin HCl (Flomax) 0.4 mg PO BID [facility] Last Admin: 07/02/17 05:04 Dose: 0.4 mg Tramadol HCl (Ultram) 50 mg PO Q6H PRN PRN Reason: Moderate Pain (4-6) Zolpidem Tartrate (Ambien) 5 mg PO HSPRN PRN PRN Reason: Insomnia
[2017-07-02] MEDS: Furosemide 20 MG TAB PO SCH (16:31)
[2017-07-02] MEDS: Nitroglycerin 2% Ointment 1 INCH/1 GM Packet TOP SCH ×2 (16:31→22:06)
[2017-07-02] MEDS ORDERED: Iopamidol 370 76% 100 ML VIAL ONE (17:22)
[2017-07-02] MEDS: Rosuvastatin 5 MG TAB PO SCH (21:25)
[2017-07-02] MEDS: Finasteride 5 MG TAB PO SCH (21:26)
[2017-07-02] MEDS: Latanoprost 0.005% Ophth Soln 2.5 ml Bottle EA EYE SCH (21:28)
[2017-07-02] MEDS: Guaifenesin DM 100-10/5 ML UDCUP PO PRN (22:07)
[2017-07-03] MEDS: Nitroglycerin 2% Ointment 1 INCH/1 GM Packet TOP SCH (06:20)
[2017-07-03] MEDS: Carvedilol 25 MG TAB PO SCH ×2 (07:44→17:07)
--- NOTE | 2017-07-03 10:19 | PDOC.PN ---
- Subjective Encounter Start Date: 07/03/17 Encounter Start Time: 07:40 Patient seen and examined. No new complaints. No overnight events - Objective MAR Reviewed: Yes Vital Signs & Weight: Vital Signs (12 hours) Temp Pulse Resp BP BP Pulse Ox 07/03/17 08:45 98.3 F 69 20 94/54 L 97 07/03/17 08:00 98.3 F 69 20 07/03/17 04:00 72 18 99/57 L 97 07/03/17 00:00 97.9 F 73 16 101/60 97 I&O: 07/02/17 07/03/17 07/04/17 06:59 06:59 06:59 Intake Total 732 Output Total 125 Balance 607 Result Diagrams: 06/30/17 10:36 07/01/17 07:43 Additional Labs: Accuchecks 07/02/17 07/02/17 07/02/17 21:03 18:03 11:01 POC Glucose 119 H 109 132 H EKG Reviewed by me: Yes Phys Exam - Physical Examination Constitutional: NAD HEENT: PERRLA, moist MMs, sclera anicteric Neck: no JVD, supple Respiratory: no wheezing, no rales, no rhonchi Cardiovascular: RRR, no significant murmur, no rub Gastrointestinal: soft, non-tender, no distention, positive bowel sounds Musculoskeletal: no edema, pulses present Neurological: non-focal, normal sensation Lymphatic: no nodes Psychiatric: normal affect, A&O x 3 Skin: no rash, normal turgor Dx/Plan (1) NSTEMI (non-ST elevated myocardial infarction) Code(s): I21.4 - NON-ST ELEVATION (NSTEMI) MYOCARDIAL INFARCTION Status: Acute (2) Ischemic cardiomyopathy Code(s): I25.5 - ISCHEMIC CARDIOMYOPATHY Status: Acute (3) BPH (benign prostatic hyperplasia) Code(s): N40.0 - BENIGN PROSTATIC HYPERPLASIA WITHOUT LOWER URINRY TRACT SYMP Status: Chronic (4) CAD (coronary artery disease) Code(s): I25.10 - ATHSCL HEART DISEASE OF [place] CORONARY ARTERY W/O ANG PCTRS Status: Chronic (5) Diabetes type 2, controlled Code(s): E11.9 - TYPE 2 DIABETES MELLITUS WITHOUT COMPLICATIONS Status: Chronic (6) Glaucoma Code(s): H40.9 - UNSPECIFIED GLAUCOMA Status: Chronic (7) Hypertension Code(s): I10 - ESSENTIAL (PRIMARY) HYPERTENSION Status: Chronic - Plan cont current plan of care, plan discussed w/ family * today plan for [place] * decision for AICD will defer to cardiology * will need to adjust his discharge medication as tolerated * medication reviewed as below * symptomatic treatment. Review of Systems - Review of Systems Eyes: negative: Pain, Vision Change, Conjunctivae Inflammation, Eyelid Inflammation, Redness, Other ENT: negative: Ear Pain, Ear Discharge, Nose Pain, Nose Discharge, Nose Congestion, Mouth Pain, Mouth Swelling, Throat Pain, Throat Swelling, Other Respiratory: negative: Cough, Dry, Shortness of Breath, Hemoptysis, SOB with Excertion, Pleuritic Pain, Sputum, Wheezing Cardiovascular: negative: chest pain, palpitations, orthopnea, paroxysmal nocturnal dyspnea, edema, light headedness, other Gastrointestinal: negative: Nausea, Vomiting, Abdominal Pain, Diarrhea, Constipation, Melena, Hematochezia, Other Genitourinary: negative: Dysuria, Frequency, Incontinence, Hematuria, Retention , Other Musculoskeletal: negative: Neck Pain, Shoulder Pain, Arm Pain, Back Pain, Hand Pain, Leg Pain, Foot Pain, Other Skin: negative: Rash, Lesions, Malick, Bruising, Other - Medications/Allergies Allergies/Adverse Reactions: Allergies Allergy/AdvReac Type Severity Reaction Status Date / Time avocado Allergy THROAT Verified 08/31/14 08:55 SWELLING banana Allergy THROAT Verified 08/31/14 08:55 SWELLING Medications: Current Medications Acetaminophen (Tylenol) 650 mg PO Q4H PRN PRN Reason: Headache/Fever or Pain Acetaminophen/Codeine Phosphate (Tylenol #3) 1 tab PO Q4H PRN PRN Reason: Mild Pain (1-3) Acetaminophen/Codeine Phosphate (Tylenol #3) 2 tab PO Q4H PRN PRN Reason: Moderate Pain (4-6) Hydrocodone Bitart/Acetaminophen ([place] 7.5/325) 1 tab PO ASDIR PRN PRN Reason: Pain Al Hydroxide/Mg Hydroxide (Maalox) 30 ml PO Q4H PRN PRN Reason: Constipation Aspirin (Ecotrin) 325 mg PO DAILY [facility] Last Admin: 07/02/17 07:21 Dose: 325 mg Bisacodyl (Dulcolax) 10 mg PO DAILYPRN PRN PRN Reason: Constipation Bisacodyl (Dulcolax) 10 mg [place] DAILYPRN PRN PRN Reason: Constipation Carvedilol (Coreg) 12.5 mg PO BID-[facility] Last Admin: 07/03/17 07:44 Dose: 12.5 mg Clopidogrel Bisulfate (Plavix) 75 mg PO DAILY [facility] Last Admin: 07/02/17 05:05 Dose: 75 mg Dextrose/Water (Dextrose 50%) 25 gm SLOW IVP PRN PRN PRN Reason: Hypoglycemia Docusate Sodium (Colace) 100 mg PO BID [facility] Last Admin: 07/02/17 21:27 Dose: 100 mg Dorzolamide/Timolol (Cosopt 2-0.5% Oph Soln) 1 drop EA EYE BID [facility] Last Admin: 07/02/17 16:38 Dose: 1 drop Finasteride (Proscar) 5 mg PO [facility] Last Admin: 07/02/17 21:26 Dose: Not Given Furosemide (Lasix) 20 mg PO DAILY [facility] Last Admin: 07/02/17 16:31 Dose: 20 mg Glucagon (Glucagon) 1 mg IM PRN PRN PRN Reason: Hypoglycemia Guaifenesin/Dextromethorphan (Robitussin Dm) 15 ml PO Q4H PRN PRN Reason: Cough Last Admin: 07/02/17 22:07 Dose: 15 ml Dextrose/Water (D5w) 1,000 mls @ 0 mls/hr IV .Q0M PRN; As Directed PRN Reason: Hypoglycemia Sodium Chloride (Normal Saline 0.9%) 1,000 mls @ 75 mls/hr IV .[id number] [facility] Last Admin: 07/02/17 20:10 Dose: Not Given Sodium Chloride (Normal Saline 0.9%) 200 mls @ 0 mls/hr IV ONE PRN; As Directed PRN Reason: Bolus PRN SBP < 90 mm Hg Stop: 07/05/17 09:16 Insulin Human Lispro (Humalog) 0 units SC .MILD SLIDING SCALE PRN PRN Reason: Mild Correctional Scale Latanoprost (Xalatan 0.005% Ophth Soln) 1 drop EA EYE [facility] Last Admin: 07/02/17 21:28 Dose: 1 drop Magnesium Hydroxide (Milk Of Magnesium) 30 ml PO BIDPRN PRN PRN Reason: Constipation Nitroglycerin (Nitrostat) 0.4 mg SL Q5MIN PRN PRN Reason: Chest Pain Nitroglycerin (Nitrostat) 0.4 mg SL Q5MIN PRN PRN Reason: Chest Pain Ondansetron HCl (Zofran) 4 mg IVP Q12H PRN PRN Reason: Nausea/Vomiting Ramipril (Altace) 5 mg PO BID [facility] Last Admin: 07/02/17 21:26 Dose: Not Given Rosuvastatin Calcium (Crestor) 5 mg PO HS [facility] Last Admin: 07/02/17 21:25 Dose: 5 mg Sodium Chloride (Flush - Normal Saline) 10 ml IVF Q12HR [facility] Last Admin: 07/02/17 21:31 Dose: Not Given Sodium Chloride (Flush - Normal Saline) 10 ml IVF PRN PRN PRN Reason: Saline Flush Spironolactone (Aldactone) 25 mg PO DAILY [facility] Last Admin: 07/02/17 05:05 Dose: Not Given Tamsulosin HCl (Flomax) 0.4 mg PO BID [facility] Last Admin: 07/02/17 21:26 Dose: 0.4 mg Tramadol HCl (Ultram) 50 mg PO Q6H PRN PRN Reason: Moderate Pain (4-6) Zolpidem Tartrate (Ambien) 5 mg PO HSPRN PRN PRN Reason: Insomnia
[2017-07-03] MEDS: Clopidogrel Bisulfate 75 MG TAB PO SCH (12:46)
[2017-07-03] MEDS: Ramipril 5 MG CAP PO SCH ×2 (12:46→21:33)
[2017-07-03] MEDS: Spironolactone 25 MG TAB PO SCH (12:49)
[2017-07-03] MEDS: Docusate 100 MG CAP PO SCH ×2 (12:50→21:33)
[2017-07-03] MEDS: Furosemide 20 MG TAB PO SCH (12:50)
[2017-07-03] MEDS: Dorzolamide HCl/Timolol Maleate 2%/0.5% Ophth Soln 10 ml Bottle EA EYE SCH ×2 (12:51→21:58)
[2017-07-03] MEDS: Tamsulosin HCl 0.4 MG CAP PO SCH ×2 (12:52→21:33)
[2017-07-03] MEDS: Sodium Chloride 0.9% 1,000 ML IV SCH ×3 (12:56→21:58)
[2017-07-03] MEDS: Aspirin 325 mg Enteric Coated Tablet PO SCH (13:00)
[2017-07-03 14:43] LABS: Anion Gap 10 mmol/L (10-20); BUN (Urea Nitrogen) 20 mg/dL (8.4-25.7); Calc. Creatinine Clearance 55 mL/min (70-130); Carbon Dioxide 24 mmol/L (23-31); Chloride 108 mmol/L (98-107); Estimated GFR-MDRD 63; Glucose 120 mg/dL (83-110); Potassium 4.4 mmol/L (3.5-5.1); Sodium 138 mmol/L (136-145)
[2017-07-03] MEDS ORDERED: Propofol 200 MG/20 ML VIAL ONE (15:41)
--- NOTE | 2017-07-03 16:35 | ECHO ---
TRANSESOPHAGEAL ECHOCARDIOGRAM: DATE OF PROCEDURE: 07/03/17 INDICATION: 76-year-old gentleman with a myocardial infarction and ischemic cardiomyopathy. DESCRIPTION OF PROCEDURE: The patient was taken to the PACU. The patient was sedated by Anesthesiology. A transesophageal probe was placed in the distal esophagus and stomach. Echocardiographic images were obtained. The transesophageal probe was removed. FINDINGS: 1. Severe decrease in left systolic function. 2. The left ventricle is moderately dilated. 3. The apex is akinetic. 4. Mild mitral regurgitation. 5. Mild tricuspid regurgitation. 6. No thrombus is noted in the left ventricular apex. 7. No thrombus is noted in the left atrium or left atrial appendage. 8. Atherosclerotic debris in the descending aorta. IMPRESSION: No formed thrombus is noted in left ventricular apex or left atrial appendage.
[2017-07-03] MEDS: Finasteride 5 MG TAB PO SCH (17:08)
[2017-07-03] MEDS: Rosuvastatin 10 MG TAB PO SCH (21:33)
[2017-07-03] MEDS: Latanoprost 0.005% Ophth Soln 2.5 ml Bottle EA EYE SCH (21:34)
[2017-07-03] MEDS: Guaifenesin DM 100-10/5 ML UDCUP PO PRN (21:34)
--- NOTE | 2017-07-04 06:00 | CON ---
DATE OF SERVICE: 07/03/2016 ELECTROPHYSIOLOGY CONSULTATION REPORT REFERRING PHYSICIAN: Vito Williamson M.D. I am seeing Mr. May at our [facility] telemetry floor as an electrophysiology consultan t. His problems are: 1. Chronic systolic congestive heart failure with ischemic cardiomyopathy. A. History of old myocardial infarction in the year 1999 and subsequent stent placed. B. Chronically and severely reduced left ventricular systolic function with LVEF persistently in the 25-30% range from [id number] with [id number] , now LVEF reduced in the 15-20% range. 2. Acute presentation with non-ST elevation myocardial infarction with peak troponin of 51.2. A. Left heart catheterization on 07/03/2017 demonstrates only distal occlusive coronary artery disea se. 3. Nonsustained ventricular tachycardia within 24 hours of admission. 4. 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 5. Coronary artery risk factors. A. Hypertension. B. Type 2 diabetes. C. Hyperlipidemia. ALLERGIES: AVOCADO and BANANA. MEDICATIONS AT HOME: Included metformin, tamsulosin, Flomax, latanoprost, hydrocodone/APAP, dorzolam viviane and timolol eyedrops, aspirin, furosemide, carvedilol, ramipril, rosuvastatin, levofloxacin, niac steride. SUBJECTIVE: Mr. May is here with indigestion-like chest discomforts and eventually ruled into a significant myocardial infarction. He was admitted on 06/30/2017 and was monitored and remained sta ble. His chest pain has now resolved. He underwent left heart catheterization today with findings a s noted above. He had no coronary intervention at this time. He has currently no PND or orthopnea. He has significant fluid overload. He has some [id number] exertional dyspnea, although he p uts it down partially due to his physical disabilities, back pains, and leg discomforts as well. He is [place] Heart Association class 2-3 functional status in the past. He is though asymptomatic at rest. He has no bleeding issues, no stroke-like symptoms, no neurologic al deficits, no fever, chills, cough, or signs of infections. REVIEW OF SYSTEMS: The rest of 12-point system otherwise also unremarkable. PAST MEDICAL HISTORY: As above. The patient has been followed by Dr. Williamson for a long time and h as had multiple documentation of severely reduced left ventricular systolic function in the past. Th e patient persistently has refused defibrillator implant. Now, he is agreeable. SOCIAL HISTORY: The patient is retired. Denies smoking, ETOH, or drug use. FAMILY HISTORY: Positive for prostate cancer, pancreatic cancer, hypertension, hyperlipidemia, coron [place] artery disease, cardiomyopathy, cardiac infarction, stroke, diabetes at this time. OBJECTIVE DATA: VITAL SIGNS: Blood pressure is 98/59, heart rate 64, respirations 20, temperature 98.3 degrees Fahre nheit. GENERAL: He is alert and oriented man in no apparent distress. NECK: Supple. Jugular veins are distended. CHEST: Coarse without crackles. CARDIOVASCULAR: Heart sounds are regular to rate and rhythm. No murmur or gallop. ABDOMEN: Benign. Bowel sounds positive. EXTREMITIES: Lower extremities without edema, clubbing, or cyanosis. Pulses are adequate. NEUROLOGIC: The patient is nonfocal. MUSCULOSKELETAL: Without joint swelling or deformities. SKIN: Without rash. DATABASE: The EKG is reviewed. Initial EKG reveals sinus rhythm, rate of 60 beats per minute with r ight bundle left axis morphology which could suggest bifascicular block, MD interval is though in the normal range. Nonspecific T wave changes are noted only. QRS duration is 144 milliseconds. Subseq uent EKGs reveal sinus rhythm, occasional PVCs, but on 07/01/2017, within 24 hours of initial present ation, there is a 10 beat nonsustained wide complex ventricular tachycardia is seen. Since then, onl y couplets are documented. LABORATORY DATA: Sodium 140, potassium 4.4, BUN 19, creatinine 1.57, on presentation, AST, ALT 19 an d 16. Initial CK is 3.2. Troponin is less than 0.01, but subsequent troponin 0.086 and then 2.578 a nd 44.99 and finally 51.25. Chest x-ray shows no acute findings. The white count current is 5.7, he moglobin 11.8, platelet count is 212. ASSESSMENT AND PLAN: Mr. May is a 76-year-old man with a longstanding prior history of chronic systolic congestive heart failure with ischemic cardiomyopathy and severely reduced left ventricular systolic function. He has now presented with acute non-ST elevation myocardial infarction and curren tly on medical management post-heart catheterization. His left ventricular ejection fraction is some what worse than previously documented in the 15-20% range. 1. We have discussed with this patient his arrhythmia risk. Naturally, this gentleman continues to be at risk for ventricular arrhythmias. He is, on the other hand, now suffers from a myocardial infa rction which slightly will increase the risk of periprocedural complication from an ICD. Hence, hayden dowling recommend waiting period of 40 days before ICD implant which he will likely require at that po int. In the meantime to reduce his ventricular arrhythmia risk, LifeVest would be highly recommended . On the other hand, he continues to have frequent ventricular arrhythmias in the post-PA recovery p eriod after 3-4 days' EP study might be beneficial to receive his eligibility for an ICD implant. 2. Bifascicular block, right bundle with significant functional limitation. Further evaluation of t his might be necessary to consider BIV ICD implant if dyssynchrony present, this could be a mariela sonable choice as well. 3. Acute myocardial infarction management as per Dr. Williamson. 4. Follow up after 40 days is requested for reevaluation for ICD implant.
[2017-07-04] MEDS: Clopidogrel Bisulfate 75 MG TAB PO SCH (09:24)
[2017-07-04] MEDS: Docusate 100 MG CAP PO SCH ×2 (09:24→20:47)
[2017-07-04] MEDS: Tamsulosin HCl 0.4 MG CAP PO SCH ×2 (09:24→20:47)
[2017-07-04] MEDS: Aspirin 81 mg Enteric Coated Tablet PO SCH (09:24)
[2017-07-04] MEDS: Carvedilol 25 MG TAB PO SCH ×2 (09:24→19:09)
[2017-07-04] MEDS: Furosemide 20 MG TAB PO SCH (09:25)
[2017-07-04] MEDS: Dorzolamide HCl/Timolol Maleate 2%/0.5% Ophth Soln 10 ml Bottle EA EYE SCH ×2 (09:25→20:47)
[2017-07-04] MEDS: Spironolactone 25 MG TAB PO SCH (09:26)
[2017-07-04] MEDS: Ramipril 5 MG CAP PO SCH ×3 (09:35→20:47)
[2017-07-04] MEDS ORDERED: Nitroglycerin 2% Ointment 1 INCH/1 GM Packet ONE (17:19)
[2017-07-04] MEDS ORDERED: Morphine 4 MG/ML Carpuject ONE (17:20)
[2017-07-04] MEDS ORDERED: Morphine 4 MG/ML Carpuject SLOW IVP SCH (17:30)
[2017-07-04] MEDS ORDERED: Enoxaparin Sodium 100 MG/ML SYRINGE SC SCH (17:30)
[2017-07-04] MEDS ORDERED: Nitroglycerin 2% Ointment 1 INCH/1 GM Packet TOP SCH (19:00)
[2017-07-04] MEDS ORDERED: Sodium Chloride 0.9% 250 ML 250 ML IVPB SCH (19:00)
[2017-07-04] MEDS ORDERED: Sodium Chloride 0.9% 500 ML IVPB SCH (20:00)
[2017-07-04] MEDS: Rosuvastatin 10 MG TAB PO SCH (20:47)
[2017-07-04] MEDS: Finasteride 5 MG TAB PO SCH (20:48)
[2017-07-04] MEDS: Latanoprost 0.005% Ophth Soln 2.5 ml Bottle EA EYE SCH (20:48)
[2017-07-05] MEDS: Carvedilol 25 MG TAB PO SCH ×2 (09:15→15:51)
[2017-07-05] MEDS: Spironolactone 25 MG TAB PO SCH ×2 (09:16→09:19)
[2017-07-05] MEDS: Aspirin 81 mg Enteric Coated Tablet PO SCH (09:17)
[2017-07-05] MEDS: Clopidogrel Bisulfate 75 MG TAB PO SCH (09:17)
[2017-07-05] MEDS: Furosemide 20 MG TAB PO SCH (09:18)
[2017-07-05] MEDS: Docusate 100 MG CAP PO SCH ×2 (09:18→20:25)
[2017-07-05] MEDS: Ramipril 5 MG CAP PO SCH ×2 (09:18→20:26)
[2017-07-05] MEDS: Tamsulosin HCl 0.4 MG CAP PO SCH ×2 (09:19→20:24)
[2017-07-05] MEDS: Dorzolamide HCl/Timolol Maleate 2%/0.5% Ophth Soln 10 ml Bottle EA EYE SCH ×2 (09:20→20:25)
--- NOTE | 2017-07-05 11:41 | PDOC.PN ---
- Subjective Encounter Start Date: 07/04/17 Encounter Start Time: 14:00 Patient is seen today, alert and oriented. Explained pt will waiting for Cardiology to order Life vest. - Objective MAR Reviewed: Yes Vital Signs & Weight: Vital Signs (12 hours) Temp Pulse Resp BP Pulse Ox 07/05/17 08:00 98.5 F 67 16 07/05/17 07:32 98.5 F 67 16 100/60 97 07/05/17 04:15 98.6 F 75 16 94/51 L 99 07/04/17 23:44 98.2 F 64 15 90/53 L 95 Weight Weight 188 lb 1.6 oz I&O: 07/04/17 07/05/17 07/06/17 06:59 06:59 06:59 Intake Total 240 Output Total 125 Balance 240 -125 Result Diagrams: 06/30/17 10:36 07/03/17 13:52 Additional Labs: Accuchecks 07/05/17 07/05/17 07/04/17 10:59 04:18 21:22 POC Glucose 122 H 121 H 114 H 07/04/17 07/04/17 17:13 12:08 POC Glucose 111 H 106 Dx/Plan (1) Ischemic cardiomyopathy Code(s): I25.5 - ISCHEMIC CARDIOMYOPATHY Status: Acute Plan: Patient has EF, high risk for Vfib, planned for Life vest to wait for ICD 40 days. Patient is reassured. has poor prognosis due to his Low EF. (2) NSTEMI (non-ST elevated myocardial infarction) Code(s): I21.4 - NON-ST ELEVATION (NSTEMI) MYOCARDIAL INFARCTION Status: Acute Plan: Persistant Elevations, Cardiology following Dr. Williamson, pt had [place], from Distal CAD stenosis, Planned for Life vest to wait 40 days to avoide post [place] complications with ICD implantation procedure. Continue with BB, Statin, Asprin. (3) CAD (coronary artery disease) Code(s): I25.10 - ATHSCL HEART DISEASE OF [place] CORONARY ARTERY W/O ANG PCTRS Status: Chronic Qualifiers: Coronary Disease-Associated Artery/Lesion type: [place] artery Associated angina: with unstable angina (4) Diabetes type 2, controlled Code(s): E11.9 - TYPE 2 DIABETES MELLITUS WITHOUT COMPLICATIONS Status: Chronic Qualifiers: Diabetes mellitus complication status: with unspecified complications Plan: [place] with SSI, plan to keep BG 140-180. (5) Glaucoma Code(s): H40.9 - UNSPECIFIED GLAUCOMA Status: Chronic (6) Hypertension Code(s): I10 - ESSENTIAL (PRIMARY) HYPERTENSION Status: Chronic Qualifiers: Hypertension type: unspecified Qualified Code(s): I10 - Essential (primary ) hypertension - Plan cont current plan of care, plan discussed w/ family, PT/OT, DVT proph w/lovenox * . - Discharge Day Encounter end time: 14:30 Review of Systems - Review of Systems Constitutional: weakness Eyes: negative: Pain, Vision Change, Conjunctivae Inflammation, Eyelid Inflammation, Redness, Other ENT: negative: Ear Pain, Ear Discharge, Nose Pain, Nose Discharge, Nose Congestion, Mouth Pain, Mouth Swelling, Throat Pain, Throat Swelling, Other Respiratory: Shortness of Breath. negative: Cough, Dry, Hemoptysis, SOB with Excertion, Pleuritic Pain, Sputum, Wheezing Cardiovascular: chest pain, orthopnea. negative: palpitations, paroxysmal nocturnal dyspnea, edema, light headedness, other Gastrointestinal: negative: Nausea, Vomiting, Abdominal Pain, Diarrhea, Constipation, Melena, Hematochezia, Other Genitourinary: negative: Dysuria, Frequency, Incontinence, Hematuria, Retention , Other Musculoskeletal: negative: Neck Pain, Shoulder Pain, Arm Pain, Back Pain, Hand Pain, Leg Pain, Foot Pain, Other Skin: negative: Rash, Lesions, Malick, Bruising, Other Neurological: negative: Weakness, Numbness, Incoordination, Change in Speech, Confusion, Seizures, Other - Medications/Allergies Allergies/Adverse Reactions: Allergies Allergy/AdvReac Type Severity Reaction Status Date / Time avocado Allergy THROAT Verified 08/31/14 08:55 SWELLING banana Allergy THROAT Verified 08/31/14 08:55 SWELLING Medications: Current Medications Acetaminophen (Tylenol) 650 mg PO Q4H PRN PRN Reason: Headache/Fever or Pain Acetaminophen/Codeine Phosphate (Tylenol #3) 1 tab PO Q4H PRN PRN Reason: Mild Pain (1-3) Acetaminophen/Codeine Phosphate (Tylenol #3) 2 tab PO Q4H PRN PRN Reason: Moderate Pain (4-6) Hydrocodone Bitart/Acetaminophen ([place] 7.5/325) 1 tab PO ASDIR PRN PRN Reason: Pain Al Hydroxide/Mg Hydroxide (Maalox) 30 ml PO Q4H PRN PRN Reason: Constipation Aspirin (Ecotrin) 81 mg PO DAILY [facility] Last Admin: 07/05/17 09:17 Dose: 81 mg Bisacodyl (Dulcolax) 10 mg PO DAILYPRN PRN PRN Reason: Constipation Bisacodyl (Dulcolax) 10 mg [place] DAILYPRN PRN PRN Reason: Constipation Carvedilol (Coreg) 12.5 mg PO BID-[facility] Last Admin: 07/05/17 09:15 Dose: 12.5 mg Clopidogrel Bisulfate (Plavix) 75 mg PO DAILY [facility] Last Admin: 07/05/17 09:17 Dose: 75 mg Dextrose/Water (Dextrose 50%) 25 gm SLOW IVP PRN PRN PRN Reason: Hypoglycemia Docusate Sodium (Colace) 100 mg PO BID [facility] Last Admin: 07/05/17 09:18 Dose: 100 mg Dorzolamide/Timolol (Cosopt 2-0.5% Ophth Soln) 1 drop EA EYE BID [facility] Last Admin: 07/05/17 09:20 Dose: 1 drop Finasteride (Proscar) 5 mg PO [facility] Last Admin: 07/04/17 20:48 Dose: Not Given Furosemide (Lasix) 20 mg PO DAILY [facility] Last Admin: 07/05/17 09:18 Dose: 20 mg Glucagon (Glucagon) 1 mg IM PRN PRN PRN Reason: Hypoglycemia Guaifenesin/Dextromethorphan (Robitussin Dm) 15 ml PO Q4H PRN PRN Reason: Cough Last Admin: 07/03/17 21:34 Dose: 15 ml Dextrose/Water (D5w) 1,000 mls @ 0 mls/hr IV .Q0M PRN; As Directed PRN Reason: Hypoglycemia Insulin Human Lispro (Humalog) 0 units SC .MILD SLIDING SCALE PRN PRN Reason: Mild Correctional Scale Latanoprost (Xalatan 0.005% Ophth Soln) 1 drop EA EYE [facility] Last Admin: 07/04/17 20:48 Dose: 1 drop Magnesium Hydroxide (Milk Of Magnesium) 30 ml PO BIDPRN PRN PRN Reason: Constipation Nitroglycerin (Nitrostat) 0.4 mg SL Q5MIN PRN PRN Reason: Chest Pain Ondansetron HCl (Zofran) 4 mg IVP Q12H PRN PRN Reason: Nausea/Vomiting Ramipril (Altace) 5 mg PO BID [facility] Last Admin: 07/05/17 09:18 Dose: 5 mg Ranolazine (Ranexa) 500 mg PO BID [facility] Ranolazine (Ranexa) 500 mg PO 1200 [facility] Stop: 07/05/17 14:00 Rosuvastatin Calcium (Crestor) 10 mg PO HS [facility] Last Admin: 07/04/17 20:47 Dose: 10 mg Sodium Chloride (Flush - Normal Saline) 10 ml IVF Q12HR [facility] Last Admin: 07/05/17 09:19 Dose: 10 ml Sodium Chloride (Flush - Normal Saline) 10 ml IVF PRN PRN PRN Reason: Saline Flush Spironolactone (Aldactone) 12.5 mg PO QAM-WM [facility] Last Admin: 07/05/17 09:16 Dose: 12.5 mg Tamsulosin HCl (Flomax) 0.4 mg PO BID [facility] Last Admin: 07/05/17 09:19 Dose: 0.4 mg Tramadol HCl (Ultram) 50 mg PO Q6H PRN PRN Reason: Moderate Pain (4-6) Zolpidem Tartrate (Ambien) 5 mg PO HSPRN PRN PRN Reason: Insomnia Last Admin: 07/04/17 23:05 Dose: 5 mg
--- NOTE | 2017-07-05 14:14 | PDOC.PN ---
- Subjective Encounter Start Date: 07/05/17 Encounter Start Time: 13:00 Patient is seen today alert and oriented. No other concerns noted. - Objective MAR Reviewed: Yes Vital Signs & Weight: Vital Signs (12 hours) Temp Pulse Resp BP Pulse Ox 07/05/17 12:09 98.3 F 80 16 95/59 L 98 07/05/17 08:00 98.5 F 67 16 07/05/17 07:32 98.5 F 67 16 100/60 97 07/05/17 04:15 98.6 F 75 16 94/51 L 99 Weight Weight 188 lb 1.6 oz I&O: 07/04/17 07/05/17 07/06/17 06:59 06:59 06:59 Intake Total 240 Output Total 125 Balance 240 -125 Result Diagrams: 06/30/17 10:36 07/03/17 13:52 Additional Labs: Accuchecks 07/05/17 07/05/17 07/04/17 10:59 04:18 21:22 POC Glucose 122 H 121 H 114 H 07/04/17 07/04/17 17:13 12:08 POC Glucose 111 H 106 Radiology Reviewed by me: Yes Phys Exam - Physical Examination HEENT: PERRLA, moist MMs Neck: no nodes, no JVD Respiratory: no wheezing, no rales Cardiovascular: RRR, no significant murmur Gastrointestinal: soft, non-tender Musculoskeletal: no edema, pulses present Dx/Plan (1) Ischemic cardiomyopathy Code(s): I25.5 - ISCHEMIC CARDIOMYOPATHY Status: Acute Plan: Patient will be in hospital for atleast 2 days, for closle monitoring before goes on Life vest , per cardiology. (2) NSTEMI (non-ST elevated myocardial infarction) Code(s): I21.4 - NON-ST ELEVATION (NSTEMI) MYOCARDIAL INFARCTION Status: Acute Plan: Patient is seen today, alert and oriented. No chest pains today, pt on Aspirin/ Spironactone. [place] monitor. (3) CAD (coronary artery disease) Code(s): I25.10 - ATHSCL HEART DISEASE OF [place] CORONARY ARTERY W/O ANG PCTRS Status: Chronic Qualifiers: Coronary Disease-Associated Artery/Lesion type: [place] artery Associated angina: with unstable angina (4) Diabetes type 2, controlled Code(s): E11.9 - TYPE 2 DIABETES MELLITUS WITHOUT COMPLICATIONS Status: Chronic Qualifiers: Diabetes mellitus complication status: with unspecified complications Plan: Well controlled. Continue with SSI. (5) Glaucoma Code(s): H40.9 - UNSPECIFIED GLAUCOMA Status: Chronic (6) Hypertension Code(s): I10 - ESSENTIAL (PRIMARY) HYPERTENSION Status: Chronic Qualifiers: Hypertension type: unspecified Qualified Code(s): I10 - Essential (primary ) hypertension Plan: Continue ACEI., BB, Spironlactone. - Plan cont current plan of care, continue antibiotics, PT/OT, DVT proph w/lovenox - Discharge Day Encounter end time: 13:30 Review of Systems - Review of Systems Constitutional: weakness, malaise Eyes: negative: Pain, Vision Change, Conjunctivae Inflammation, Eyelid Inflammation, Redness, Other ENT: negative: Ear Pain, Ear Discharge, Nose Pain, Nose Discharge, Nose Congestion, Mouth Pain, Mouth Swelling, Throat Pain, Throat Swelling, Other Respiratory: negative: Cough, Dry, Shortness of Breath, Hemoptysis, SOB with Excertion, Pleuritic Pain, Sputum, Wheezing Cardiovascular: negative: chest pain, palpitations, orthopnea, paroxysmal nocturnal dyspnea, edema, light headedness, other Gastrointestinal: negative: Nausea, Vomiting, Abdominal Pain, Diarrhea, Constipation, Melena, Hematochezia, Other Genitourinary: negative: Dysuria, Frequency, Incontinence, Hematuria, Retention , Other Musculoskeletal: negative: Neck Pain, Shoulder Pain, Arm Pain, Back Pain, Hand Pain, Leg Pain, Foot Pain, Other Skin: negative: Rash, Lesions, Malick, Bruising, Other Neurological: negative: Weakness, Numbness, Incoordination, Change in Speech, Confusion, Seizures, Other - Medications/Allergies Allergies/Adverse Reactions: Allergies Allergy/AdvReac Type Severity Reaction Status Date / Time avocado Allergy THROAT Verified 08/31/14 08:55 SWELLING banana Allergy THROAT Verified 08/31/14 08:55 SWELLING Medications: Current Medications Acetaminophen (Tylenol) 650 mg PO Q4H PRN PRN Reason: Headache/Fever or Pain Acetaminophen/Codeine Phosphate (Tylenol #3) 1 tab PO Q4H PRN PRN Reason: Mild Pain (1-3) Acetaminophen/Codeine Phosphate (Tylenol #3) 2 tab PO Q4H PRN PRN Reason: Moderate Pain (4-6) Hydrocodone Bitart/Acetaminophen ([place] 7.5/325) 1 tab PO ASDIR PRN PRN Reason: Pain Al Hydroxide/Mg Hydroxide (Maalox) 30 ml PO Q4H PRN PRN Reason: Constipation Aspirin (Ecotrin) 81 mg PO DAILY [facility] Last Admin: 07/05/17 09:17 Dose: 81 mg Bisacodyl (Dulcolax) 10 mg PO DAILYPRN PRN PRN Reason: Constipation Bisacodyl (Dulcolax) 10 mg [place] DAILYPRN PRN PRN Reason: Constipation Carvedilol (Coreg) 12.5 mg PO BID-[facility] Last Admin: 07/05/17 09:15 Dose: 12.5 mg Clopidogrel Bisulfate (Plavix) 75 mg PO DAILY [facility] Last Admin: 07/05/17 09:17 Dose: 75 mg Dextrose/Water (Dextrose 50%) 25 gm SLOW IVP PRN PRN PRN Reason: Hypoglycemia Docusate Sodium (Colace) 100 mg PO BID [facility] Last Admin: 07/05/17 09:18 Dose: 100 mg Dorzolamide/Timolol (Cosopt 2-0.5% Ophth Soln) 1 drop EA EYE BID [facility] Last Admin: 07/05/17 09:20 Dose: 1 drop Finasteride (Proscar) 5 mg PO [facility] Last Admin: 07/04/17 20:48 Dose: Not Given Furosemide (Lasix) 20 mg PO DAILY [facility] Last Admin: 07/05/17 09:18 Dose: 20 mg Glucagon (Glucagon) 1 mg IM PRN PRN PRN Reason: Hypoglycemia Guaifenesin/Dextromethorphan (Robitussin Dm) 15 ml PO Q4H PRN PRN Reason: Cough Last Admin: 07/03/17 21:34 Dose: 15 ml Dextrose/Water (D5w) 1,000 mls @ 0 mls/hr IV .Q0M PRN; As Directed PRN Reason: Hypoglycemia Insulin Human Lispro (Humalog) 0 units SC .MILD SLIDING SCALE PRN PRN Reason: Mild Correctional Scale Latanoprost (Xalatan 0.005% Ophth Soln) 1 drop EA EYE [facility] Last Admin: 07/04/17 20:48 Dose: 1 drop Magnesium Hydroxide (Milk Of Magnesium) 30 ml PO BIDPRN PRN PRN Reason: Constipation Nitroglycerin (Nitrostat) 0.4 mg SL Q5MIN PRN PRN Reason: Chest Pain Ondansetron HCl (Zofran) 4 mg IVP Q12H PRN PRN Reason: Nausea/Vomiting Ramipril (Altace) 5 mg PO BID [facility] Last Admin: 07/05/17 09:18 Dose: 5 mg Ranolazine (Ranexa) 500 mg PO BID [facility] Rosuvastatin Calcium (Crestor) 10 mg PO HS [facility] Last Admin: 07/04/17 20:47 Dose: 10 mg Sodium Chloride (Flush - Normal Saline) 10 ml IVF Q12HR [facility] Last Admin: 07/05/17 09:19 Dose: 10 ml Sodium Chloride (Flush - Normal Saline) 10 ml IVF PRN PRN PRN Reason: Saline Flush Spironolactone (Aldactone) 12.5 mg PO QAM-WM [facility] Last Admin: 07/05/17 09:16 Dose: 12.5 mg Tamsulosin HCl (Flomax) 0.4 mg PO BID [facility] Last Admin: 07/05/17 09:19 Dose: 0.4 mg Tramadol HCl (Ultram) 50 mg PO Q6H PRN PRN Reason: Moderate Pain (4-6) Zolpidem Tartrate (Ambien) 5 mg PO HSPRN PRN PRN Reason: Insomnia Last Admin: 07/04/17 23:05 Dose: 5 mg
--- NOTE | 2017-07-05 19:43 | EKG ---
Test Reason : Blood Pressure : / mmHG Vent. Rate : 064 BPM Atrial Rate : 064 BPM P-R Int : 124 ms QRS Dur : 164 ms QT Int : 446 ms P-R-T Axes : 045 176 181 degrees QTc Int : 460 ms Normal sinus rhythm Right bundle branch block Septal infarct (cited on or before 07-MAR-2006) T wave abnormality, consider inferolateral ischemia Abnormal ECG When compared with ECG of 01-JUL-2017 00:36, (Unconfirmed) QRS duration has increased Questionable change in initial forces of Anterior leads T wave inversion more evident in Lateral leads Confirmed by ALVERTO HERR (2) on 07/05/2017 7:42:53 PM Referred By: HARJINDER Confirmed By:ALVERTO HERR
--- NOTE | 2017-07-05 19:43 | EKG ---
Test Reason : STAT Blood Pressure : / mmHG Vent. Rate : 062 BPM Atrial Rate : 062 BPM P-R Int : 122 ms QRS Dur : 140 ms QT Int : 426 ms P-R-T Axes : 039 037 134 degrees QTc Int : 432 ms Normal sinus rhythm Right bundle branch block Anteroseptal infarct (cited on or before 07-MAR-2006) T wave abnormality, consider lateral ischemia Abnormal ECG When compared with ECG of 30-JUN-2017 11:46, (Unconfirmed) Questionable change in initial forces of Septal leads Nonspecific T wave abnormality now evident in Inferior leads Confirmed by ALVERTO HERR (2) on 07/05/2017 7:42:35 PM Referred By: Confirmed By:ALVERTO HERR
[2017-07-05] MEDS: Rosuvastatin 10 MG TAB PO SCH (20:24)
[2017-07-05] MEDS: Finasteride 5 MG TAB PO SCH (20:25)
[2017-07-05] MEDS: Latanoprost 0.005% Ophth Soln 2.5 ml Bottle EA EYE SCH (20:25)
[2017-07-05] MEDS: Guaifenesin DM 100-10/5 ML UDCUP PO PRN (22:45)
[2017-07-06] MEDS: Tamsulosin HCl 0.4 MG CAP PO SCH (08:31)
[2017-07-06] MEDS: Docusate 100 MG CAP PO SCH (08:32)
[2017-07-06] MEDS: Furosemide 20 MG TAB PO SCH (08:32)
[2017-07-06] MEDS: Spironolactone 25 MG TAB PO SCH (08:33)
[2017-07-06] MEDS: Clopidogrel Bisulfate 75 MG TAB PO SCH (08:34)
[2017-07-06] MEDS: Aspirin 81 mg Enteric Coated Tablet PO SCH (08:34)
[2017-07-06] MEDS: Dorzolamide HCl/Timolol Maleate 2%/0.5% Ophth Soln 10 ml Bottle EA EYE SCH (08:35)
[2017-07-06] MEDS: Guaifenesin DM 100-10/5 ML UDCUP PO PRN (10:24)
[2017-07-06] MEDS: Ramipril 5 MG CAP PO SCH (11:17)
[2017-07-06 12:16] VITALS: TEMP 98.1
[2017-07-06] MEDS: Carvedilol 25 MG TAB PO SCH (13:05)
[2017-07-06 15:18] VITALS: BP 99/65
--- NOTE | 2017-07-07 10:23 | DIS ---
DATE OF ADMISSION: 06/30/2017 DATE OF DISCHARGE: 07/06/2017 ADMITTING DIAGNOSIS: Acute chest pain. DISCHARGE DIAGNOSIS: Non-ST elevation myocardial infarction. SECONDARY DIAGNOSES: 1. Non-Q-wave myocardial infarction. 2. Ischemic cardiomyopathy. 3. Acute kidney injury. 4. Hypotension. 5. Type 2 diabetes mellitus. 6. Dyslipidemia. CONSULTANTS INVOLVED IN THIS CARE: Dr. Williamson from Cardiology and Dr. Feliciano Parr, also from ardiology. PROCEDURES DONE DURING THIS ADMISSION: 1. Transesophageal echo showing no evidence of any clot in the left atrium, which showing a severe d ecrease in left systolic function and moderately dilated left ventricle. 2. Cardiac catheterization showing a pretty low EF of 15%-20% with cardiac catheterization showing n o evidence of any acute stenosis, but evidence of myocardial infarction. There call center consultant involved is Dr. Harrell from Electrophysiology and suggested ICD implant after 40 days period following LifeVest placement as the patient is a high risk for geovany-procedural complication as the patient had recent NH. HISTORY OF PRESENT ILLNESS AND HOSPITAL COURSE: In brief, this is an 81-year-old -[place] ma le with a known history of coronary artery disease and he was admitted on 06/30/2017 for acute chest pain and has been monitored and remained stable. His chest pain has resolved following admission, bu t he underwent a left heart catheterization with the findings suggestive of ischemic cardiomyopathy w ith old NH in 1999 and has a chronically severely reduced left ventricular systolic function in the r roosevelt of 25%-30%. This was in [id number], but now it has reduced to 15%-20% according to Dr. Williamson. The patient had a left heart catheterization on 07/03/2017 which showed distal occlusive coronary a rtery disease. The patient was started on Ranexa. The patient was noted to have a nonsustained ventricular tachycardia following the procedure. So he was closely monitored and Electrophysiology was consulted who suggested ICD placement for 2 days from now and also suggested that patient should be started on a LifeVest going home. The patient was sta rted on spironolactone 12.5 mg with Coreg 3.25 mg b.i.d. along with ramipril. The patient was closel y monitored. His pressures were pretty low initially and after manually checking his blood pressures , they were pretty and doing more stable with systolic more than 100. So Dr. Williamson carefully disc ussed with the patient and family to continue using the Coreg and ramipril as much as possible and to hold medications if the blood pressure is less than systolic 90 and plan was to see the patient in 1 -2 weeks as outpatient and possibly change to Entresto at that point. The patient was discharged nir e on LifeVest. He was in a stable condition. The patient was also started on Plavix, a new medicati on along with aspirin. PHYSICAL EXAMINATION: On date of discharge: VITAL SIGNS: Blood pressure is 112/52, heart rate is at 86, respiratory rate is 18, saturation 98%. CARDIOVASCULAR SYSTEM: S1 and S2 normal. No murmurs, no rubs, no gallops. LUNGS: Bilateral air entry was equal. No wheezing, no crackles. ABDOMEN: Soft, nontender, no guarding, no rebound tenderness. Bowel sounds normal. MUSCULOSKELETAL: No calf tenderness. No pedal edema. No joint tenderness, no joint swelling. DISCHARGE MEDICATIONS: Metformin 500 mg daily, aspirin 81 mg daily, Plavix 75 mg p.o. daily, Coreg 1 2.5 mg p.o. b.i.d., Lasix 20 mg daily, ramipril 5 mg p.o. b.i.d., rosuvastatin 10 mg p.o. b.i.d., Ran exa 1000 mg p.o. daily. DISCHARGE INSTRUCTIONS: 1. Continue activity as tolerated. 2. Advised to follow up with the primary care physician in 1-2 weeks. 3. Advised to follow up with Dr. Williamson in 1 week and advised to call Dr. Williamson's office for an y questions. 4. Advised to continue with cardiac diet and avoid salt in the diet. 5. Activity: As tolerated. 6. Advised to return to the ER with any chest pain. I spent 35 minutes on this patient.
== END 2017-07-06 16:35 | disposition home or self-care (01) | DRG 281 ==
LOC: ERS 09:52 → ERHOLD 12:31 → 2SW 15:27 → OBSVTOIN 07-01 09:18
PROVIDERS: ADMIT Hospitalist; ATTEND Hospitalist
PROC: 4A023N7 Measurement of Cardiac Sampling and Pressure, Left Heart, Percutaneous Approach (ICD-10-PCS; principal; 2017-07-02)
PROC: B2111ZZ Fluoroscopy of Multiple Coronary Arteries using Low Osmolar Contrast (ICD-10-PCS; 2017-07-02)
PROC: B2151ZZ Fluoroscopy of Left Heart using Low Osmolar Contrast (ICD-10-PCS; 2017-07-02)
DX: I21.4 Non-ST elevation (NSTEMI) myocardial infarction (principal); N17.9 Acute kidney failure, unspecified; I47.2 Ventricular tachycardia; I11.0 Hypertensive heart disease with heart failure; I95.9 Hypotension, unspecified; E11.9 Type 2 diabetes mellitus without complications; I50.22 Chronic systolic (congestive) heart failure; I45.2 Bifascicular block; I25.2 Old myocardial infarction; I25.5 Ischemic cardiomyopathy; E78.5 Hyperlipidemia, unspecified; K21.9 Gastro-esophageal reflux disease without esophagitis; I45.10 Unspecified right bundle-branch block; I25.110 Atherosclerotic heart disease of native coronary artery with unstable angina pectoris; H40.9 Unspecified glaucoma; N40.0 Benign prostatic hyperplasia without lower urinary tract symptoms; Z95.5 Presence of coronary angioplasty implant and graft
CPT/HCPCS: 36415; 36416; 71045; 80048; 80053; 82550; 82553; 83036; 84484; 85025; 85730; 93005; 93010; 93306; 93312; 93458; 93798; 99152; 99153; A4216; C1769; J1644; J1650; J2250; J2270; J2405; J2704

== ENCOUNTER 2017-07-11 04:56 | Observation (INO) | payer MEDICARE ==
[2017-07-11 05:44] LABS: #Eosinphils 0.2 thou/uL (0.0-0.7); #Lymphocytes 1.5 thou/uL (1.20-3.40); #Monocytes 0.5 thou/uL (0.11-0.59); #Neutrophils 2.6 thou/uL (1.40-6.50); %Basophils 0.7 % (0.0-1.0); %Eosinophils 3.2 % (0.0-10.0); %Lymphocytes 31.5 % (21.0-51.0); %Monocytes 9.8 % (0.0-10.0); %Neutrophils 54.7 % (42.0-75.0); Hemoglobin 11.1 g/dL (14.0-18.0); Mean Corpuscular HGB CONC 33.4 g/dL (32.0-36.0); Mean Corpuscular Hemoglobin 28.8 pg (27.0-31.0); Mean Corpuscular Volume 86.3 fl (80.0-94.0); Mean Platelet Volume 7.4 fL (7.4-10.4); Platelet Count 195 thou/uL (130-400); Red Blood Cell (RBC) Count 3.86 mill/uL (4.70-6.10); White Blood Cell (WBC) Count 4.8 thou/uL (4.8-10.8)
[2017-07-11 06:09] LABS: CKMB 3.1 ng/mL (0-6.6); Troponin I 0.171 ng/mL (< 0.028)
[2017-07-11 06:29] LABS: ALT (SGPT) 12 U/L (8-55); AST (SGOT) 16 U/L (5-34); Alkaline Phosphatase 52 U/L (40-150); Anion Gap 15 mmol/L (10-20); BUN (Urea Nitrogen) 30 mg/dL (8.4-25.7); Bilirubin, Total 0.7 mg/dL (0.2-1.2); CK (CPK) 221 U/L (30-200); Calc. Creatinine Clearance 0 mL/min (70-130); Calcium 9.8 mg/dL (7.8-10.44); Carbon Dioxide 24 mmol/L (23-31); Chloride 103 mmol/L (98-107); Estimated GFR-MDRD 45; Globulin 2.7 g/dL (2.4-3.5); Glucose 95 mg/dL (83-110); Potassium 4.8 mmol/L (3.5-5.1); Protein, Total 6.7 g/dL (5.8-8.1); Sodium 137 mmol/L (136-145)
--- NOTE | 2017-07-11 09:19 | RAD ---
SINGLE VIEW CHEST: Date: 07/11/17 COMPARISON: 06/30/17. HISTORY: Right-sided chest pain. History of myocardial infarction. FINDINGS: Single view of the chest shows normal sized cardiomediastinal silhouette. There is stable elevation o f the left hemidiaphragm. There is no evidence of consolidation, mass, or pleural effusion. IMPRESSION: No evidence of acute cardiopulmonary disease. POS: [facility]
--- NOTE | 2017-07-11 09:21 | CT ---
CT HEAD NONCONTRAST: Date: 07/11/17 CLINICAL HISTORY: Slow speech, left arm numbness. FINDINGS: There is mild parenchymal volume loss. Minimal chronic microvascular ischemic disease present without evidence of intracranial hemorrhage, mass effect, or midline shift. Trace mucosal thickening in para nasal sinuses. There are remote lacunar infarctions in the right cerebellar hemisphere. IMPRESSION: No acute intracranial abnormalities. POS: [facility]
[2017-07-11 09:44] VITALS: BMI 27.2
[2017-07-11] MEDS ORDERED: Sodium Chloride 0.65% Nasal 44 ML BOT EA NARE PRN (10:13)
[2017-07-11] MEDS ORDERED: Ondansetron HCl/PF 4 MG/2 ML Vial IVP PRN (10:13)
[2017-07-11] MEDS ORDERED: Senokot 8.6 MG TAB PO PRN (10:13)
[2017-07-11] MEDS ORDERED: Eucerin (Mineral Oil/Petrolatum,White) 30 gm Jar TOP PRN (10:13)
[2017-07-11] MEDS ORDERED: Ondansetron ODT 4 MG TAB PO PRN (10:13)
[2017-07-11] MEDS ORDERED: Acetaminophen 325 MG TAB PO PRN (10:13)
[2017-07-11] MEDS ORDERED: Loperamide HCl 2 MG CAP PO PRN (10:13)
[2017-07-11] MEDS ORDERED: hydrALAZINE 20 MG/ML VIAL SLOW IVP PRN (10:13)
[2017-07-11] MEDS ORDERED: Nitroglycerin 0.4 MG TAB (25 Tab Bottle) SL PRN (10:13)
[2017-07-11] MEDS ORDERED: Diabetic Tussin 200 MG/10 ML UDCUP PO PRN (10:13)
[2017-07-11] MEDS ORDERED: Mag-Al 1200 mg/1200 mg/30 ML UDCUP PO PRN (10:13)
[2017-07-11] MEDS ORDERED: HYDROcodone/Acetaminophen 5/325 mg Tablet PO PRN (10:13)
[2017-07-11] MEDS ORDERED: Loratadine 10 MG TAB PO PRN (10:13)
[2017-07-11] MEDS ORDERED: Artificial Tears 18 DROP/0.9 ML EA EYE PRN (10:13)
[2017-07-11] MEDS ORDERED: Chloraseptic Spray 180 ml Bottle PO PRN (10:13)
[2017-07-11] MEDS ORDERED: Zolpidem Tartrate 5 MG TAB PO PRN (10:13)
[2017-07-11] MEDS ORDERED: Milk Of Magnesia 30 ML UDCUP PO PRN (10:13)
[2017-07-11] MEDS ORDERED: Lorazepam 2 MG/ML VIAL ONE (11:20)
[2017-07-11] MEDS ORDERED: Lorazepam 2 MG/ML VIAL SLOW IVP SCH (11:45)
[2017-07-11] MEDS ORDERED: Dextrose 50% Abboject 50 ML SYRINGE SLOW IVP PRN (12:14)
[2017-07-11] MEDS ORDERED: HumaLOG 300 UNITS/3 ML VIAL SC PRN ×2 (12:14)
[2017-07-11] MEDS ORDERED: Dextrose 5% in Water 1,000 ML IV PRN (12:14)
[2017-07-11 12:28] LABS: CKMB 3.3 ng/mL (0-6.6); Troponin I 0.145 ng/mL (< 0.028)
--- NOTE | 2017-07-11 13:08 | MRI ---
MRI BRAIN WITHOUT CONTRAST: History: TIA. Headache. FINDINGS: There is no evidence of acute intracranial hemorrhage or infarct. The ventricles appear normal in siz e, shape, and position. There is no mass effect or shift of midline structures. IMPRESSION: No acute intracranial abnormalities are demonstrated. POS: [facility]
--- NOTE | 2017-07-11 13:39 | HP ---
PRIMARY CARE PHYSICIAN: Dr. Pete Juarez. REASON FOR ADMISSION: Chest pain. HISTORY OF PRESENT ILLNESS: A 76-year-old male who has ischemic cardiomyopathy and his ejection frac tion is 15% to 20%. He was first admitted in our hospital on 05/24/2017, at that time, he was having chest pain. He had 3 sets of cardiac enzyme negative and during that admission, the patient underwe nt nuclear medicine stress test, which showed geovany-infarct ischemia. We consulted Cardiology and Car diology recommended that there was no change in his stress test from previous and that is why he was discharged home. He was readmitted on 06/30/2017, at that time, patient was found with non-ST elevat ion AL. Echocardiography was done at that time, which showed EF 15% to 20%. Cardiac catheterization was done, which showed distal small vessel disease and Ranexa was started. Transesophageal echocard iography was negative for any intracardiac thrombus. The patient was discharged from the hospital on 07/06/2017. During that admission, patient had nonsustained ventricular tachycardia and that is why take out waiter was consulted and they recommended to use LifeVest before putting ICD. Today, he came to the emergency room with complaint of chest pain. Previously, he was having chest p ain substernal location and left-sided location, but this time he has pain in the right side, which h e able to localize, which was not improved with nitroglycerin, it was related with deep breathing. H e denies any cough, but lately he was feeling more shortness of breath. At the same time, the patien t was also experienced problem off numbness in the right arm as well as lower leg and he was having t rouble thinking and trouble finding words and family were worried about stroke, but these symptoms wa s going on for the last 4-5 days and in the emergency room, CT brain was negative for any acute intra cranial process. Patient's pain has not responded to nitroglycerin, but it is reported to pain medic ation. The patient was wearing LifeVest daily basis. He denies any fever. He denies any hemoptysis . He denies any lower extremity calf tenderness. Today in the emergency room, his routine blood maegan ts showed creatinine 1.78 and troponin 0.171. His cardiogram was unchanged from previous. At this p oint, he is readmitted for chest pain evaluation. 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 PAST SURGICAL HISTORY: Lithotripsy for nephrolithiasis, left knee surgery, carpal tunnel surgery, se ptoplasty in 1972, lumbar spine surgery in 2006, cardiac catheterization with stent placement. PAST PSYCHIATRIC HISTORY: Reviewed and negative. SOCIAL HISTORY: Patient is . He lives at home with his . No history of tobacco, alcohol , or illicit drug abuse. FAMILY HISTORY: Positive for coronary artery disease among several family members. REVIEW OF SYSTEMS: The following complete review of systems was negative, unless otherwise mentioned in the HPI or below: Constitutional: Weight loss or gain, ability to conduct usual activities. Skin: Rash, itching. Eyes: Double vision, pain. ENT/Mouth: Nose bleeding, neck stiffness, pain, tenderness. Cardiovascular: Palpitations, dyspnea on exertion, orthopnea. Respiratory: Shortness of breath, wheezing, cough, hemoptysis, fever or night sweats. Gastrointestinal: Poor appetite, abdominal pain, heartburn, nausea, vomiting, constipation, or diarrh ea. Genitourinary: Urgency, frequency, dysuria, nocturia. Musculoskeletal: Pain, swelling. Neurologic/Psychiatric: Anxiety, depression. Allergy/Immunologic: Skin rash, bleeding tendency. Please see my HPI for pertinent positives and negatives. All other review of systems reviewed and ne gative except as mentioned in the HPI. ALLERGIES: AVOCADO AND BANANA, but no known drug allergies. CURRENT HOME MEDICATIONS: The patient was discharged home on the following medications: Aspirin 81 mg p.o. daily, Coreg 12.5 mg p.o. b.i.d., Plavix 75 mg p.o. daily, dorzolamide with timolol maleate o phthalmic drops b.i.d., Lasix 20 mg p.o. daily, [place] 7.5 one tablet as directed, Xalatan eye drop be dtime, metformin 500 mg p.o. daily, nitroglycerin 0.4 mg sublingual p.r.n., ramipril 5 mg p.o. b.i.d. , Ranexa 1000 mg p.o. b.i.d., Crestor 5 mg p.o. b.i.d., Aldactone 12.5 mg p.o. daily, and Flomax 0.4 mg p.o. b.i.d. EMERGENCY ROOM COURSE: Reviewed. PHYSICAL EXAMINATION: VITAL SIGNS: Currently, blood pressure 112/72, pulse 66, respiratory rate 16, temperature 97.9, satu ration 99% on room air, weight 83.9 kilograms. GENERAL: Patient is currently alert, awake, in no obvious acute distress. HEENT: Normocephalic, atraumatic. Eyes: Pupils round, reactive to light. Extraocular muscles inta ct. ENT: Oropharynx within normal limits. Moist mucous membranes. No oral lesions. No pharyngeal eryt emilie. No exudate. NECK: Supple, no JVD, no thyromegaly, no carotid bruit, no jugular venous distention. LUNGS: Clear to auscultation without any rhonchi or rales. CARDIAC: S1 and S2 regular. No murmur, no gallop, no rub. ABDOMEN: Soft, bowel sounds present, nontender, nondistended. No organomegaly, no mass, no suprapub ic tenderness. BACK: Unremarkable. No CVA tenderness. EXTREMITIES: Upper extremity: Passive movement of all joints are normal. Lower extremities: No ed chai. Good peripheral pulsation. SKIN: No skin rash. HEMATOLOGICAL: No lymphadenopathy. NEUROLOGIC: The patient is alert, oriented x3. Cranial nerves II through XII intact. Motor 5/5 in all four limbs. Sensation bilaterally symmetrical, though patient does have some subjective sensory changes due to peripheral neuropathy. Reflexes symmetrical. Plantar bilateral flexor. No cerebella r sign. PSYCHIATRIC: Normal affect. SIGNIFICANT LABORATORY DATA: EKG showing normal sinus rhythm, complete right bundle branch block pat tern, nonspecific ST-T changes in lateral leads, unchanged from previous. CT brain based on my revie w, no acute intracranial process. Old lacunar infarct noted in cerebellum. Chronic ischemic white m atter changes, paranasal mucosal thickening. Chest x-ray based on my review, no acute cardiopulmonar y process. CBC: WBC 4.8, hemoglobin 11.1, platelets 195. D-dimer less than 0.27. Sodium 137, pota ssium 4.8, chloride 103, carbon dioxide 24, anion gap 15, BUN 30, creatinine 1.78, glucose 95, and ca lcium 9.8. LFT: AST 16, ALT 12, alkaline phosphatase 52, albumin 4.0. CK 221, CK-MB 3.1, troponin I 0.171. ASSESSMENT AND PLAN: 1. Chest pain. This time, patient has right-sided chest pain, which is pleuritic in nature. Given this patient required recurrent hospitalizations lately and that is why he is at risk for pulmonary e mbolism, but possibility of having pulmonary embolism is less likely. Given his hemodynamic instabil ity, we will check D-dimer and if D-dimer is negative, then he does not need any further evaluation a nd after checking D-dimer, it came back to normal and that is why we are not going to perform anymore testing. His troponin is already trending down from previous non-STEMI range troponin. This time, patient's presentation is atypical. He does have coronary artery disease and distal disease. The pa tient's pain has not responded to nitroglycerin. Most likely, this pain is not related with his card iac etiology, but it could be musculoskeletal pain. We will do serial cardiac enzymes to rule out ac sherry coronary syndrome. We will continue nitroglycerin p.r.n. basis, aspirin 81 mg p.o. daily, Plavix 75 mg p.o. daily, Coreg 12.5 mg p.o. twice daily, Crestor 5 mg p.o. b.i.d., Ranexa 1000 mg p.o. b.i. d. As this patient had full workup done in recent past, he does not need anymore investigation. 2. Neurological symptoms. This patient has forgetfulness, difficulty concentrating, and difficulty finding words. All these symptoms is nonspecific. His CT brain is showing old infarct in the right cerebellum region and chronic ischemic changes. I am suspecting that this patient's symptomatology m ay be related with chronic ischemic white matter changes. We will try to do MRI brain. He does not have any focal neurological deficit and we are not suspecting any new CVA on his case, the patient is already on aspirin and Plavix therapy. 3. Coronary artery disease with ischemic cardiomyopathy as mentioned above. Continue aspirin, Plavi x, Coreg, ramipril, Aldactone, Crestor, Ranexa as per home dosage. 4. Ischemic cardiomyopathy with EF 15% to 20%. Currently, patient is euvolemic. Continue Coreg, ra mipril, Lasix, Aldactone as per home dosage. The patient will continue to use LifeVest. Upon discha rge and he will have outpatient followup with Cardiology and Electrophysiology to determine AICD. 6. Diabetes type 2. We will continue insulin as per sliding scale protocol. We will continue metfo rmin 500 mg p.o. daily. 7. Glaucoma. We will continue dorzolamide/timolol maleate ophthalmic eyedrops, Xalatan eyedrops as per home dosage. 8. Hypertension, currently well controlled. Continue Coreg, ramipril, Aldactone, Lasix as per home dosage. 9. Benign enlargement of prostate. Continue Flomax 0.4 mg p.o. b.i.d. 10. Dyslipidemia. Continue Crestor 5 mg p.o. b.i.d. 11. Code status: The patient is FULL CODE. The patient's is surrogate decision maker. 12. Chronic kidney disease stage 3. We will monitor renal function. 13. Elevated troponin, but that is trending down from previous non-ST myocardial infarction raised t roponin. We will do serial cardiac enzymes. Disposition plan within 24 hours. Plan of care extensively discussed with the family member at [facility].
[2017-07-11 15:50] LABS: CKMB 3.3 ng/mL (0-6.6); Troponin I 0.122 ng/mL (< 0.028)
[2017-07-11] MEDS: Carvedilol 6.25 MG TAB PO SCH (18:00)
[2017-07-11] MEDS ORDERED: Latanoprost 0.005% Ophth Soln 2.5 ml Bottle EA EYE SCH (21:00)
[2017-07-11] MEDS ORDERED: Carvedilol 6.25 MG TAB PO SCH (21:00)
[2017-07-11] MEDS: Ramipril 5 MG CAP PO SCH (21:58)
[2017-07-11] MEDS: Tamsulosin HCl 0.4 MG CAP PO SCH (21:58)
[2017-07-11] MEDS: Rosuvastatin 5 MG TAB PO SCH (21:58)
[2017-07-11] MEDS: Dorzolamide HCl/Timolol Maleate 2%/0.5% Ophth Soln 10 ml Bottle EA EYE SCH (21:59)
--- NOTE | 2017-07-11 23:51 | CON ---
DATE OF CONSULTATION: 07/11/2017 REFERRING PROVIDER: Duncan Messina M.D. REASON FOR CONSULTATION: Right-sided numbness. HISTORY OF PRESENT ILLNESS: Mr. May is a pleasant 76-year-old -[place] male who has bee n consulted for evaluation of right-sided numbness and delayed speech. He reports that over the past few days, he has been having increasing difficulty with getting his words out and slowness in his sp eech. He was recently admitted with heart attack at [facility] and he was started on Plavix and antihypertensive medications. He states that since being discharged from the hospital, he has b een having increasing episodes of feeling lightheaded and dizziness. He had presented to [facility] today with complain of chest pain. This pain was more located toward the right side than th e left side. He was given IV pain medication, which did help alleviate his pain. He states that deepak und 4:00 in the morning he started noticing numbness on the right side of the arm and leg. There was no numbness involving the right side of the face. He did not have any weakness associated with this numbness. He denies any neck pain. He states that the numbness is better now since being admitted to the hospital. PAST MEDICAL HISTORY: Significant for hypertension, coronary artery disease, congestive heart failur e, ischemic cardiomyopathy, history of CT, diabetes, and hyperlipidemia. PAST SURGICAL HISTORY: Significant for lithotripsy for kidney stones, left knee surgery, carpal tunn el release, septoplasty, lumbar spine surgery, and cardiac stent placement. SOCIAL HISTORY: He is . He denies smoking, alcohol use, or illicit drug use. FAMILY HISTORY: Significant for coronary artery disease in several family members. CURRENT MEDICATIONS: Please review MAR. ALLERGIES: Include AVOCADO and BANANA. REVIEW OF SYSTEMS: As mentioned in the HPI, otherwise negative. PHYSICAL EXAMINATION: VITAL SIGNS: Blood pressure 104/56, pulse of 75, temperature of 97.5, respirations of 20, and O2 sat s of 95% on room air. GENERAL: Well-developed, well-nourished, -[place] male in no apparent distress. RESPIRATORY: Clear to auscultation bilaterally. CARDIOVASCULAR: Regular rate and rhythm. NEUROLOGIC: Mental status: The patient is awake, alert, oriented x3. Speech and language: Fluent speech. Cranial nerves: Pupils are 3 mm and reactive. Visual lazar are intact. External muscles are intact. No nystagmus is noted. Face is symmetric. Tongue and uvula are midline. Motor exam sh owed normal tone and bulk with a 5/5 strength in upper and lower extremities. Sensory: Sensation in tact and symmetric. Deep tendon reflexes 1+ reflex in both upper and lower extremities. Babinski: Plantar responses flexion bilaterally. Coordination intact to [id number], finger tapping jaspal aterally. LABORATORY DATA: Reviewed, which included CBC, CMP, troponin, which is significant for hemoglobin of 11.1, hematocrit of 33.3, BUN of 30, creatinine of 1.78. Troponin of 0.122 and CPK of 221, otherwis e unremarkable. IMAGING STUDIES: MRI brain without contrast was reviewed, which showed no acute intracranial abnorma lity. IMPRESSION: 1. Right-sided numbness. 2. Hypertension. 3. Hyperlipidemia. 4. Diabetes. Mr. May is a pleasant 76-year-old -[place] male who presented with the right-sided chest pain along with right-sided numbness and slowness in speech, these symptoms have now resolved. This episode may have been deemed secondary to his underlying heart disease. This also may have been sec ondary to medication induced. I have reviewed his MRI brain which is essentially normal. At this ti me, I will recommend continuing current antiplatelet therapy. There is no further neurological yenifer p needed from my standpoint. The patient is okay to be discharged to home from neurological standpoi nt. Thank you for your consultation.
--- NOTE | 2017-07-12 00:53 | EKG ---
Test Reason : C/O CHEST PAIN Blood Pressure : / mmHG Vent. Rate : 077 BPM Atrial Rate : 077 BPM P-R Int : 120 ms QRS Dur : 166 ms QT Int : 426 ms P-R-T Axes : 028 032 027 degrees QTc Int : 482 ms Normal sinus rhythm Right bundle branch block Anteroseptal infarct (cited on or before 07-MAR-2006) Abnormal ECG When compared with ECG of 11-JUL-2017 05:04, (Unconfirmed) No significant change was found Confirmed by SUNIL NUNEZ, SJeffery ([id number]) on 07/12/2017 12:53:35 AM Referred By: LOLIS Confirmed By:DR. Kvng BARBER MD
[2017-07-12 05:21] LABS: #Basophils 0.1 thou/uL (0.0-0.2); #Eosinphils 0.1 thou/uL (0.0-0.7); #Lymphocytes 1.6 thou/uL (1.20-3.40); #Monocytes 0.4 thou/uL (0.11-0.59); #Neutrophils 2.2 thou/uL (1.40-6.50); %Basophils 1.1 % (0.0-1.0); %Eosinophils 3.3 % (0.0-10.0); %Lymphocytes 35.3 % (21.0-51.0); %Monocytes 9.7 % (0.0-10.0); %Neutrophils 50.6 % (42.0-75.0); Mean Corpuscular HGB CONC 31.8 g/dL (32.0-36.0); Mean Corpuscular Hemoglobin 27.3 pg (27.0-31.0); Mean Corpuscular Volume 85.7 fl (80.0-94.0); Mean Platelet Volume 7.4 fL (7.4-10.4); Platelet Count 188 thou/uL (130-400); RBC Distribution Width 13.8 % (11.5-14.5); Red Blood Cell (RBC) Count 4.02 mill/uL (4.70-6.10); White Blood Cell (WBC) Count 4.4 thou/uL (4.8-10.8)
[2017-07-12 05:37] LABS: Anion Gap 9 mmol/L (10-20); BUN (Urea Nitrogen) 25 mg/dL (8.4-25.7); Calc. Creatinine Clearance 50 mL/min (70-130); Calcium 9.2 mg/dL (7.8-10.44); Carbon Dioxide 26 mmol/L (23-31); Chloride 104 mmol/L (98-107); Estimated GFR-MDRD 55; Glucose 75 mg/dL (83-110); Potassium 4.3 mmol/L (3.5-5.1); Sodium 135 mmol/L (136-145)
[2017-07-12] MEDS ORDERED: Spironolactone 25 MG TAB PO SCH (08:00)
[2017-07-12 08:04] VITALS: TEMP 97.8
[2017-07-12] MEDS ORDERED: Furosemide 20 MG TAB PO SCH (09:00)
[2017-07-12] MEDS ORDERED: Aspirin 81 mg Enteric Coated Tablet PO SCH (09:00)
[2017-07-12] MEDS ORDERED: metFORMIN 500 MG TAB PO SCH (09:00)
[2017-07-12] MEDS ORDERED: Clopidogrel Bisulfate 75 MG TAB PO SCH (09:00)
[2017-07-12 10:04] VITALS: BP 95/58
[2017-07-12] MEDS: Carvedilol 6.25 MG TAB PO SCH (10:08)
[2017-07-12] MEDS: Ramipril 5 MG CAP PO SCH (10:08)
[2017-07-12] MEDS: Dorzolamide HCl/Timolol Maleate 2%/0.5% Ophth Soln 10 ml Bottle EA EYE SCH (10:08)
[2017-07-12] MEDS: Tamsulosin HCl 0.4 MG CAP PO SCH (10:09)
[2017-07-12] MEDS: Rosuvastatin 5 MG TAB PO SCH (10:09)
--- NOTE | 2017-07-12 10:41 | DIS ---
DATE OF ADMISSION: 07/11/2017 DATE OF DISCHARGE: 07/12/2017 PRIMARY CARE PHYSICIAN: Dr. Ann Freeman. DISCHARGE DISPOSITION: Home. PRIMARY DISCHARGE DIAGNOSES: 1. Chest pain, ruled out acute coronary syndrome. 2. Stroke-like symptoms, ruled out cerebrovascular accident. SECONDARY DISCHARGE DIAGNOSES: 1. Coronary artery disease. 2. Ischemic cardiomyopathy. 3. Hypertension. 4. Glaucoma. 5. Diabetes type 2. 6. Chronic kidney disease stage 3. 7. Benign enlargement of prostate. PRIMARY PROCEDURE/OPERATION: None. RADIOLOGICAL INVESTIGATION: MRI brain was normal, no CVA. CT brain was negative for any acute proce ss. Chest x-ray, normal. SIGNIFICANT LABORATORY DATA: WBC 4.4, hemoglobin 11.0, platelets 188. D-dimer less than 0.27. Sodi um 135, creatinine 1.49, calcium 9.2, troponin 0.122. LFT normal. DISCHARGE MEDICATIONS: Patient will resume all previous medications, aspirin 81 mg p.o. daily, Coreg 12.5 mg p.o. b.i.d., Plavix 75 mg p.o. daily, Dorzolamide/Timolol maleate 1 drop each eye b.i.d., [place] 20 mg p.o. daily, [place] 7.5 one tablet as directed p.r.n., Xalatan eyedrops at bedtime, metformin 500 mg p.o. daily, ramipril 5 mg p.o. b.i.d., nitroglycerin 0.4 mg sublingual p.r.n., Ranexa 1000 mg p.o. b.i.d., Crestor 5 mg p.o. b.i.d., Aldactone 12.5 mg p.o. daily, Flomax 0.4 mg p.o. b.i.d. CONTRAINDICATIONS: None. CODE STATUS: FULL CODE. INPATIENT CONSULTANTS: Dr. Komal Arcos was consulted while in hospital. TEST RESULTS PENDING ON DISCHARGE: None. ALLERGIES: AVOCADO and BANANA. DISCHARGE PLAN: Post hospital, the patient will follow up with Dr. Ann Freeman tomorrow as alen abdullahi as patient has appointment with Dr. Williamson in 1 week. HOSPITAL COURSE: A 76-year-old male who has known history of coronary artery disease with ischemic c ardiomyopathy, was brought to the Emergency Room for chest pain. This time, chest pain was noncardia c. He was having right-sided pain. We checked D-dimer, it was negative. During this admission, we did not pursue anymore investigation, because he already had cardiac catheterization and echocardiogr aphy. This patient was having some stroke-like symptoms and that is why we did an MRI brain, which w as negative for any acute CVA. Family requested neurologic consultation and Neurology saw this patie nt and they did not recommend any anticoagulation therapy. At this point, the patient is medically stable. We advised him to hold his blood pressure medication if blood pressure is less than 100/60. Even with low blood pressure, the patient is completely asym ptomatic. PHYSICAL EXAMINATION: The patient is seen and examined at bedside today. VITAL SIGNS: Currently, temperature 97.8, pulse 70, respiratory rate 16, blood pressure 95/58. Weig ht 190 pounds. GENERAL: The patient is currently alert, awake, no acute distress. HEAD: Normocephalic, atraumatic. EYES: Pupils round, reactive to light. Extraocular muscle intact. ENT: Oropharynx within normal limits. Moist mucous membranes. NECK: Supple, no JVD. LUNGS: Clear to auscultation without any rhonchi or rales. CARDIAC: S1, S2 regular, without any murmurs. ABDOMEN: Soft and benign without any tenderness. EXTREMITIES: No edema. NEUROLOGIC: Nonfocal examination. DISPOSITION: The patient is medically stable for discharge today.
--- NOTE | 2017-07-21 17:49 | EKG ---
Test Reason : Blood Pressure : / mmHG Vent. Rate : 067 BPM Atrial Rate : 067 BPM P-R Int : 124 ms QRS Dur : 164 ms QT Int : 428 ms P-R-T Axes : 041 031 011 degrees QTc Int : 452 ms Normal sinus rhythm Right bundle branch block Anteroseptal infarct , age undetermined T wave abnormality, consider lateral ischemia Abnormal ECG Confirmed by YASMINE WHALEN D.O. ([id number]), managing editor KELLI COOL ([id number]) on 07/21/2017 5:48:11 PM Referred By: Confirmed By:YASMINE WHALEN D.O.
== END 2017-07-12 10:19 | disposition home or self-care (01) ==
LOC: ERS 04:56 → 2SW 06:00 → ERS 09:02
PROVIDERS: ADMIT Internal Medicine; ATTEND Internal Medicine
DX: R07.89 Other chest pain (principal); I25.10 Atherosclerotic heart disease of native coronary artery without angina pectoris; I25.5 Ischemic cardiomyopathy; I13.0 Hypertensive heart and chronic kidney disease with heart failure and stage 1 through stage 4 chronic kidney disease, or unspecified chronic kidney disease; I50.9 Heart failure, unspecified; E11.22 Type 2 diabetes mellitus with diabetic chronic kidney disease; N18.3 Chronic kidney disease, stage 3 (moderate); H40.9 Unspecified glaucoma; N40.0 Benign prostatic hyperplasia without lower urinary tract symptoms; R41.3 Other amnesia; R41.840 Attention and concentration deficit; R47.01 Aphasia; R20.0 Anesthesia of skin; I25.2 Old myocardial infarction; H54.40 Blindness, one eye, unspecified eye; E78.5 Hyperlipidemia, unspecified; K59.09 Other constipation; Z79.84 Long term (current) use of oral hypoglycemic drugs; Z79.82 Long term (current) use of aspirin; Z79.02 Long term (current) use of antithrombotics/antiplatelets; Z79.899 Other long term (current) drug therapy; Z91.018 Allergy to other foods; Z98.49 Cataract extraction status, unspecified eye; Z95.818 Presence of other cardiac implants and grafts; Z98.890 Other specified postprocedural states; Z87.442 Personal history of urinary calculi; Z86.73 Personal history of transient ischemic attack (TIA), and cerebral infarction without residual deficits
CPT/HCPCS: 70450; 70551; 71045; 80048; 80053; 82550; 82553 ×2; 82962; 84484 ×2; 85025 ×2; 85379; 93005; 99285; G0378; 36415; 36416; 93010; J2060

== ENCOUNTER 2017-07-18 13:54 | Outpatient (CLI) | payer MEDICARE ==
--- NOTE | 2017-07-18 14:58 | ULT ---
CAROTID DUPLEX SONOGRAM: HISTORY: Vascular disease. TIA. FINDINGS: RIGHT: There is mild plaque. Color and spectral Doppler evaluation, peak systolic velocity is 78 cm/s, and IC to CC ratio of 1.0 suggests no hemodynamically significant stenosis within the extracranial right ICA. Antegrade flow is present within the vertebral artery. LEFT: Mild plaque is present. Color and spectral Doppler evaluation, peak systolic velocity of 75 cm/s, an d IC to CC ratio of 0.6 suggests no hemodynamically significant stenosis within the extracranial left ICA. Antegrade flow is present within the vertebral artery. IMPRESSION: Atherosclerosis. No sonographic evidence of significant extracranial internal carotid artery stenosi s. POS: [facility]
== END 2017-07-18 13:55 | disposition home or self-care (01) ==
LOC: ULT 13:54
PROVIDERS: ATTEND Internal Medicine
DX: I25.10 Atherosclerotic heart disease of native coronary artery without angina pectoris (principal); I25.5 Ischemic cardiomyopathy; Z86.73 Personal history of transient ischemic attack (TIA), and cerebral infarction without residual deficits
CPT/HCPCS: 93880

== ENCOUNTER 2017-09-03 08:35 | Observation (INO) | payer MEDICARE ==
--- NOTE | 2017-09-03 08:57 | RAD ---
CHEST 1 VIEW: Date: 09/03/17 HISTORY: 76-year-old male with history of chest pain. COMPARISON: 07/11/17. FINDINGS: Stable left hemidiaphragm elevation with minimal horizontal linear and parenchymal changes in the lef t base, probably chronic change or subsegmental atelectasis. Heart size is within normal limits. The right lung is clear. IMPRESSION: Stable left hemidiaphragm elevation and minimal horizontal linear and parenchymal changes in the left base. No acute intrathoracic disease. POS: C
[2017-09-03] MEDS ORDERED: Mag-Al 1200 mg/1200 mg/30 ML UDCUP ONE (09:05)
[2017-09-03] MEDS ORDERED: Lidocaine Viscous Sol 2% 15 ml UD Cup ONE (09:06)
[2017-09-03] MEDS ORDERED: Ondansetron HCl/PF 4 MG/2 ML Vial ONE (09:11)
[2017-09-03 09:12] LABS: #Basophils 0.1 thou/uL (0.0-0.2); #Eosinphils 0.2 thou/uL (0.0-0.7); #Lymphocytes 1.7 thou/uL (1.20-3.40); #Monocytes 0.6 thou/uL (0.11-0.59); #Neutrophils 3.9 thou/uL (1.40-6.50); %Basophils 1.2 % (0.0-1.0); %Eosinophils 2.5 % (0.0-10.0); %Lymphocytes 26.4 % (21.0-51.0); %Monocytes 9.8 % (0.0-10.0); %Neutrophils 60.2 % (42.0-75.0); Hemoglobin 11.8 g/dL (14.0-18.0); Mean Corpuscular HGB CONC 32.2 g/dL (32.0-36.0); Mean Corpuscular Hemoglobin 28.4 pg (27.0-31.0); Mean Corpuscular Volume 88.2 fl (80.0-94.0); Mean Platelet Volume 7.2 fL (7.4-10.4); Platelet Count 208 thou/uL (130-400); RBC Distribution Width 14.5 % (11.5-14.5); Red Blood Cell (RBC) Count 4.16 mill/uL (4.70-6.10); White Blood Cell (WBC) Count 6.4 thou/uL (4.8-10.8)
[2017-09-03 09:39] LABS: ALT (SGPT) 15 U/L (8-55); AST (SGOT) 15 U/L (5-34); Albumin 4.1 g/dL (3.4-4.8); Alkaline Phosphatase 67 U/L (40-150); Anion Gap 12 mmol/L (10-20); BUN (Urea Nitrogen) 29 mg/dL (8.4-25.7); Bilirubin, Total 0.4 mg/dL (0.2-1.2); CK (CPK) 145 U/L (30-200); Calc. Creatinine Clearance 0 mL/min (70-130); Calcium 9.2 mg/dL (7.8-10.44); Carbon Dioxide 25 mmol/L (23-31); Chloride 103 mmol/L (98-107); Estimated GFR-MDRD 45; Globulin 2.9 g/dL (2.4-3.5); Glucose 118 mg/dL (83-110); Lipase 30 U/L (8-78); Potassium 4.7 mmol/L (3.5-5.1); Sodium 135 mmol/L (136-145)
[2017-09-03 09:44] LABS: CKMB 2.7 ng/mL (0-6.6); Troponin I 0.014 ng/mL (< 0.028)
[2017-09-03] MEDS ORDERED: Aspirin 325 MG TAB ONE (10:28)
--- NOTE | 2017-09-03 12:04 | HP ---
PRIMARY CARE PHYSICIAN: Ann Freeman M.D. PRIMARY AUTOMOTIVE POWER ELECTRONICS ENGINEER: Dr. Williamson REASON FOR ADMISSION: Chest pain. HISTORY OF PRESENT ILLNESS: A 76-year-old -[place] male who has underlying history of ischem ic cardiomyopathy with ejection fraction of 15%-20%. This patient already had a cardiac catheterizat ion done in 06/2017 and patient was found with LAD 60% stenosis, first obtuse marginal 90% stenosis, second obtuse marginal 90% stenosis, proximal circumflex 40% stenosis and RCA 30% stenosis. He is on medical therapy. This patient also has LifeVest and he has upcoming appointment with Dr. Harrell at th e end of this month. He gets recurrent anginal pain. At this time he came to emergency room with complaint of chest pain. He reports that he was suspecti ng by himself indigestion that started yesterday. He did not eat any spicy food. He is not taking a ny NSAID, but he was feeling sharp pain in substernal location with nausea feeling and abdominal full ness. He has underlying chronic constipation, but his last bowel movement was on Sunday. He denie s any abdominal distention. He denies any melena or hematochezia. He denies any vomiting. He denie s any radiation of pain. This morning, he had similar sharp pain and dull pain on the substernal area and that is why he took 2 nitroglycerins, Pepcid and [place] that did not help his pain, but when he came to emergency room, in the emergency room, patient was given GI cocktail. After that, a sharp component of pain was improv ed, but abdominal pain persisted. Patient reports that when he had non-Q RI at that time this simila r type of pain moved to left side, but this time pain remained in the substernal area. Today in the emergency room, echocardiogram is unchanged. His routine blood test including cardiac e nzyme are negative. The patient insisted on staying in the hospital for observation to rule out mickey nary syndrome. REVIEW OF SYSTEMS: The following complete review of systems was negative, unless otherwise mentioned in the HPI or below: Constitutional: Weight loss or gain, ability to conduct usual activities. Skin: Rash, itching. Eyes: Double vision, pain. ENT/Mouth: Nose bleeding, neck stiffness, pain, tenderness. Cardiovascular: Palpitations, dyspnea on exertion, orthopnea. Respiratory: Shortness of breath, wheezing, cough, hemoptysis, fever or night sweats. Gastrointestinal: Poor appetite, abdominal pain, heartburn, nausea, vomiting, constipation, or diarr hea. Genitourinary: Urgency, frequency, dysuria, nocturia. Musculoskeletal: Pain, swelling. Neurologic/Psychiatric: Anxiety, depression. Allergy/Immunologic: Skin rash, bleeding tendency. Please see my HPI for pertinent positive and negative. All other review of systems reviewed and nega tive except as mentioned in the HPI. ALLERGIES: AVOCADO and BANANA. CURRENT HOME MEDICATIONS: Aspirin 81 mg p.o. daily, Coreg 12.5 mg p.o. b.i.d., Plavix 75 mg p.o. thais ly, dorzolamide/hydrochloride/timolol maleate ophthalmic drop right eye b.i.d., Lasix 20 mg p.o. yefri y, [place] 7.5 one tablet as directed, Xalatan eyedrops at bedtime, metformin 500 mg p.o. daily, nitrog lycerin 0.4 mg sublingual p.r.n., ramipril 5 mg p.o. b.i.d., Ranexa 1000 mg p.o. b.i.d., Crestor 5 mg p.o. b.i.d., Aldactone 12.5 mg p.o. daily, Flomax 0.4 mg p.o. b.i.d. PAST MEDICAL HISTORY: History of myocardial infarction in 1999, required total 3 cardiac stents, his tory of non-Q-wave RI in early June and found with distal vessel disease, left eye blindness, tameka ract surgery, glaucoma, diabetes type 2, hypertension, dyslipidemia, history of diverticulitis, chron ic constipation, benign enlargement of prostate, history of TIA. PAST SURGICAL HISTORY: Lithotripsy for nephrolithiasis, left knee surgery, carpal tunnel surgery, se ptoplasty in 1972, lumbar spine surgery in 2006, cardiac catheterization with stent placement. PAST PSYCHIATRIC HISTORY: Reviewed and negative. SOCIAL HISTORY: Patient is . He lives at home with his . No history of tobacco, alcohol or illicit drug abuse. FAMILY HISTORY: Positive for coronary artery disease among several family members. EMERGENCY ROOM COURSE: Patient is given GI cocktail, aspirin 324 mg and Zofran 4 mg. PHYSICAL EXAMINATION: VITAL SIGNS: On arrival, blood pressure 148/91, pulse 77, respiratory rate 18, temperature 97.6, sat uration 98% on room air, weight 83.9 kilograms. GENERAL: Patient is currently alert, awake, no obvious acute distress. HEAD: Normocephalic, atraumatic. EYES: Pupils round, reactive to light. Extraocular muscle intact. ENT: Oropharynx within normal limits. Moist mucous membranes, no oral lesion, no pharyngeal erythem a, no exudate. NECK: Supple, no JVD, no thyromegaly, no carotid bruit, no jugular venous distention. LUNGS: Clear to auscultation without any rhonchi or rales. CARDIAC: S1, S2 regular. No murmur, no gallop, no rub. ABDOMEN: Soft, bowel sounds present, nontender, nondistended. No organomegaly, no mass, no suprapub ic tenderness, no Ching sign, no epigastric tenderness. BACK: Examination unremarkable. GENITOURINARY: Within normal limits. EXTREMITIES: Upper extremity passive movements of all joints are normal. Lower extremities: No alida ma. Good peripheral pulsation. SKIN: No skin rash. HEMATOLOGICAL SYSTEM: No lymphadenopathy. PSYCHIATRIC: Normal affect. NEUROLOGIC: Nonfocal examination. The patient moves all 4 limbs. Plantar bilateral flexor. IMAGING DATA AND SIGNIFICANT LABORATORY DATA: 1. EKG showing complete right bundle branch block pattern and nonspecific ST-T changes. 2. Chest x-ray based on my review, no acute cardiopulmonary process, elevation of left hemidiaphragm . 3. WBC 6.4, hemoglobin 11.8, platelet 208. 4. BMP: Sodium 135, potassium 4.7, chloride 103, carbon dioxide 25, anion gap 12, BUN 29, creatinin e 1.77, glucose 118, calcium 9.2. 5. LFT: AST 15, ALT 15, alkaline phosphatase 67, albumin 4.1, lipase 30. CK 145, CK-MB 2.7, tropon in I 0.014, BNP 128. ASSESSMENT AND PLAN/IMPRESSION: 1. Chest pain. At this time, patient's chest pain description is more towards GI etiology rather th an cardiac etiology. He had no improvement in his chest pain with nitroglycerin and [place], but chest pain significantly improved after GI cocktail. I am suspecting acid reflux. This patient still has a dull ache pain and his pain is 2 components; sharp component improved with GI cocktail, but dull c omponent is still there. Currently cardiac enzymes are negative. Echocardiogram is not showing any ischemic changes. He already had a cardiac catheterization in 06/2017 and he has underlying coronary artery disease. This patient is not a good candidate for bypass surgery given his distal disease as well as cardiomyopathy. At this point, patient requesting admission work rule out acute coronary sy ndrome. We will do serial cardiac enzymes x3 and we will monitor on telemetry floor and we will cons ider discharging him home tomorrow morning. I spoke with patient that if cardiac enzymes are negativ e, then no point of Cardiology consultation as he already had cardiac catheterization recently and hi s creatinine is also high, so we will repeat cardiac catheterization. We will not make any change in his care and he understood and he expressed understanding as well. 2. Ischemic cardiomyopathy, chronic systolic heart failure. Currently, patient is [facility]mic. [facility] Dr. Harrell at end of this month for evaluation of automated implant able cardioverter-defibrillator. I gave him option of consulting him during this admission, but genevieve ent wanted to continue outpatient appointment as well and then I think that is reasonable as well. T he patient is currently euvolemic and currently on optimum medical therapy for systolic congestive he art failure with Coreg 12.5 mg b.i.d., Lasix 20 mg daily, ramipril 5 mg p.o. b.i.d., Aldactone 12.5 m g p.o. daily. 3. Multivessel coronary artery disease, currently on optimum medical therapy with aspirin 81 mg p.o. daily, Plavix 75 mg p.o. daily, Coreg 12.5 mg p.o. b.i.d., ramipril 5 mg p.o. b.i.d., Crestor 5 mg p .o. b.i.d. 4. Glaucoma. We will continue dorzolamide/timolol ophthalmic drops and Xalatan eyedrops as per home dosage. 5. Diabetes type 2. Continue metformin 500 mg p.o. daily and insulin as per sliding scale per bri col. 6. Hypertension. Continue ramipril, Coreg, Aldactone, Lasix as per home dosage. 7. Benign enlargement of prostate. Continue Flomax 0.4 mg p.o. b.i.d. 8. Chronic kidney disease stage 3. Continue to monitor renal function and avoid nephrotoxin agent. 9. Dyslipidemia. Continue Crestor 5 mg p.o. b.i.d. 10. Deep venous thrombosis prophylaxis not needed because we are expecting discharge in 24 hours. 11. Gastrointestinal prophylaxis, Protonix 40 mg p.o. daily and Pepcid 20 mg p.o. daily. 12. Chronic constipation. We will continue MiraLax 17 grams p.o. b.i.d. along with Colace and Senok ot as per home dosage. 13. Code status: The patient is FULL CODE. The patient's is surrogate decision maker. Disposition plan based on clinical course. We are expecting patient's stay in hospital [address] of care discussed with the patient and daughter at bedside in the emergency room.
[2017-09-03] MEDS ORDERED: Ondansetron ODT 4 MG TAB PO PRN (12:51)
[2017-09-03] MEDS ORDERED: Acetaminophen 325 MG TAB PO PRN (12:51)
[2017-09-03] MEDS ORDERED: Milk Of Magnesia 30 ML UDCUP PO PRN (12:51)
[2017-09-03] MEDS ORDERED: Ondansetron HCl/PF 4 MG/2 ML Vial IVP PRN (12:51)
[2017-09-03] MEDS ORDERED: Mag-Al 1200 mg/1200 mg/30 ML UDCUP PO PRN (12:51)
[2017-09-03] MEDS ORDERED: Dextrose 5% in Water 1,000 ML IV PRN (12:51)
[2017-09-03] MEDS ORDERED: Zolpidem Tartrate 5 MG TAB PO PRN (12:51)
[2017-09-03] MEDS ORDERED: Dextrose 50% Abboject 50 ML SYRINGE SLOW IVP PRN (12:51)
[2017-09-03] MEDS ORDERED: HumaLOG 300 UNITS/3 ML VIAL SC PRN ×2 (12:51)
[2017-09-03] MEDS ORDERED: Bisacodyl 10 MG SUPP PR PRN (12:51)
[2017-09-03] MEDS ORDERED: Loperamide HCl 2 MG CAP PO PRN (12:51)
[2017-09-03] MEDS ORDERED: HYDROcodone/Acetaminophen 7.5/325 mg Tablet PO PRN (12:51)
[2017-09-03] MEDS ORDERED: Senokot 8.6 MG TAB PO PRN (12:51)
[2017-09-03] MEDS ORDERED: Loratadine 10 MG TAB PO PRN (12:51)
[2017-09-03] MEDS ORDERED: Chloraseptic Spray 180 ml Bottle PO PRN (12:51)
[2017-09-03] MEDS ORDERED: Diabetic Tussin 200 MG/10 ML UDCUP PO PRN (12:51)
[2017-09-03] MEDS ORDERED: Artificial Tears 18 DROP/0.9 ML EA EYE PRN (12:51)
[2017-09-03] MEDS ORDERED: Nitroglycerin 0.4 MG TAB (25 Tab Bottle) SL PRN (12:51)
[2017-09-03] MEDS ORDERED: hydrALAZINE 20 MG/ML VIAL SLOW IVP PRN (12:51)
[2017-09-03] MEDS ORDERED: Eucerin (Mineral Oil/Petrolatum,White) 30 gm Jar TOP PRN (12:51)
[2017-09-03] MEDS ORDERED: Sodium Chloride 0.65% Nasal 44 ML BOT EA NARE PRN (12:51)
[2017-09-03 13:00] VITALS: BMI 26.5
[2017-09-03 13:16] LABS: Troponin I Less than 0.010 ng/mL (< 0.028)
[2017-09-03] MEDS ORDERED: Clopidogrel Bisulfate 75 MG TAB PO SCH (14:15)
[2017-09-03 16:25] LABS: Troponin I 0.012 ng/mL (< 0.028)
[2017-09-03] MEDS: Carvedilol 25 MG TAB PO SCH (16:32)
[2017-09-03] MEDS: Polyethylene Glycol 3350 17 GM Packet PO SCH (20:09)
[2017-09-03] MEDS: Ramipril 5 MG CAP PO SCH (20:10)
[2017-09-03] MEDS: Tamsulosin HCl 0.4 MG CAP PO SCH (20:10)
[2017-09-03] MEDS: Rosuvastatin 10 MG TAB PO SCH (20:10)
[2017-09-03] MEDS: Docusate 100 MG CAP PO SCH (20:12)
[2017-09-03] MEDS ORDERED: Latanoprost 0.005% Ophth Soln 2.5 ml Bottle EA EYE SCH (21:00)
[2017-09-03] MEDS: Dorzolamide HCl/Timolol Maleate 2%/0.5% Ophth Soln 10 ml Bottle EA EYE SCH (21:15)
[2017-09-04 03:33] VITALS: TEMP 97.9
[2017-09-04 05:07] LABS: #Eosinphils 0.2 thou/uL (0.0-0.7); #Lymphocytes 1.7 thou/uL (1.20-3.40); #Monocytes 0.5 thou/uL (0.11-0.59); #Neutrophils 2.5 thou/uL (1.40-6.50); %Basophils 0.6 % (0.0-1.0); %Eosinophils 4.5 % (0.0-10.0); %Lymphocytes 34.2 % (21.0-51.0); %Monocytes 10.1 % (0.0-10.0); %Neutrophils 50.6 % (42.0-75.0); Hemoglobin 10.7 g/dL (14.0-18.0); Mean Corpuscular HGB CONC 32.5 g/dL (32.0-36.0); Mean Corpuscular Hemoglobin 28.2 pg (27.0-31.0); Mean Corpuscular Volume 86.6 fl (80.0-94.0); Mean Platelet Volume 6.8 fL (7.4-10.4); Platelet Count 192 thou/uL (130-400); RBC Distribution Width 14.2 % (11.5-14.5); Red Blood Cell (RBC) Count 3.79 mill/uL (4.70-6.10); White Blood Cell (WBC) Count 4.8 thou/uL (4.8-10.8)
[2017-09-04 05:29] LABS: Anion Gap 10 mmol/L (10-20); BUN (Urea Nitrogen) 25 mg/dL (8.4-25.7); Calc. Creatinine Clearance 52 mL/min (70-130); Calcium 8.7 mg/dL (7.8-10.44); Carbon Dioxide 27 mmol/L (23-31); Cardiac Risk 2.3 (Less than 4.5); Chloride 105 mmol/L (98-107); Cholesterol 122 mg/dl (< 200 Desired); Estimated GFR-MDRD 59; Glucose 89 mg/dL (83-110); HDL Cholesterol 53 mg/dL (>60 Neg Risk); LDL Cholesterol, Calculated 63 mg/dL; Potassium 4.9 mmol/L (3.5-5.1); Sodium 137 mmol/L (136-145); Triglycerides 30 mg/dL (Less than 150)
[2017-09-04] MEDS: Rosuvastatin 10 MG TAB PO SCH (07:37)
[2017-09-04] MEDS: Carvedilol 25 MG TAB PO SCH (07:39)
[2017-09-04] MEDS: Tamsulosin HCl 0.4 MG CAP PO SCH (07:39)
[2017-09-04] MEDS: Docusate 100 MG CAP PO SCH (07:40)
[2017-09-04] MEDS: Polyethylene Glycol 3350 17 GM Packet PO SCH (07:41)
[2017-09-04] MEDS: Dorzolamide HCl/Timolol Maleate 2%/0.5% Ophth Soln 10 ml Bottle EA EYE SCH (07:42)
[2017-09-04] MEDS: Ramipril 5 MG CAP PO SCH (07:49)
[2017-09-04 07:50] VITALS: BP 100/60
[2017-09-04] MEDS ORDERED: Spironolactone 25 MG TAB PO SCH (08:00)
[2017-09-04] MEDS ORDERED: Famotidine 20 MG TAB PO SCH (09:00)
[2017-09-04] MEDS ORDERED: Furosemide 20 MG TAB PO SCH (09:00)
[2017-09-04] MEDS ORDERED: Clopidogrel Bisulfate 75 MG TAB PO SCH ×2 (09:00)
[2017-09-04] MEDS ORDERED: Aspirin 81 mg Enteric Coated Tablet PO SCH (09:00)
[2017-09-04] MEDS ORDERED: metFORMIN 500 MG TAB PO SCH (09:00)
--- NOTE | 2017-09-04 09:00 | PDOC.PN ---
- Subjective Encounter Start Date: 09/04/17 Encounter Start Time: 07:20 -: old records requested/rev Patient seen and examined. No new complaints. No overnight events - Objective Resuscitation Status: Resuscitation Status FULL:Full Resuscitation MAR Reviewed: Yes Vital Signs & Weight: Vital Signs (12 hours) Temp Pulse Resp BP BP Pulse Ox 09/04/17 07:49 100/60 09/04/17 07:30 97.9 F 74 18 09/04/17 07:29 97.9 F 74 18 100/60 98 09/04/17 03:15 97.9 F 73 16 105/66 98 09/03/17 23:04 98.0 F 52 L 16 99/70 98 Weight Weight 189 lb I&O: 09/03/17 09/04/17 09/05/17 06:59 06:59 06:59 Intake Total 1000 Output Total 675 Balance 325 Result Diagrams: 09/04/17 04:36 09/04/17 04:36 Additional Labs: Accuchecks 09/04/17 09/03/17 09/03/17 04:37 20:07 17:21 POC Glucose 87 158 H 126 H EKG Reviewed by me: Yes Phys Exam - Physical Examination Constitutional: NAD HEENT: PERRLA, moist MMs, sclera anicteric Neck: no JVD, supple Respiratory: no wheezing, no rales, no rhonchi Cardiovascular: RRR, no significant murmur, no rub Gastrointestinal: soft, non-tender, no distention, positive bowel sounds Musculoskeletal: no edema, pulses present Neurological: non-focal, normal sensation, moves all 4 limbs Psychiatric: normal affect, A&O x 3 Skin: no rash, normal turgor Dx/Plan (1) Chest pain Code(s): R07.9 - CHEST PAIN, UNSPECIFIED Status: Acute (2) BPH (benign prostatic hyperplasia) Code(s): N40.0 - BENIGN PROSTATIC HYPERPLASIA WITHOUT LOWER URINRY TRACT SYMP Status: Chronic (3) CAD (coronary artery disease) Code(s): I25.10 - ATHSCL HEART DISEASE OF [place] CORONARY ARTERY W/O ANG PCTRS Status: Chronic (4) CKD (chronic kidney disease) stage 3, GFR 30-59 ml/min Code(s): N18.3 - CHRONIC KIDNEY DISEASE, STAGE 3 (MODERATE) Status: Chronic (5) Diabetes type 2, controlled Code(s): E11.9 - TYPE 2 DIABETES MELLITUS WITHOUT COMPLICATIONS Status: Chronic (6) Glaucoma Code(s): H40.9 - UNSPECIFIED GLAUCOMA Status: Chronic (7) Hypertension Code(s): I10 - ESSENTIAL (PRIMARY) HYPERTENSION Status: Chronic Qualifiers: (8) Ischemic cardiomyopathy Code(s): I25.5 - ISCHEMIC CARDIOMYOPATHY Status: Chronic - Plan cont current plan of care, plan discussed w/ family * medication reviewed as below * symptomatic treatment * discharge home today. Review of Systems - Review of Systems Eyes: negative: Pain, Vision Change, Conjunctivae Inflammation, Eyelid Inflammation, Redness, Other ENT: negative: Ear Pain, Ear Discharge, Nose Pain, Nose Discharge, Nose Congestion, Mouth Pain, Mouth Swelling, Throat Pain, Throat Swelling, Other Respiratory: negative: Cough, Dry, Shortness of Breath, Hemoptysis, SOB with Excertion, Pleuritic Pain, Sputum, Wheezing Cardiovascular: negative: chest pain, palpitations, orthopnea, paroxysmal nocturnal dyspnea, edema, light headedness, other Gastrointestinal: negative: Nausea, Vomiting, Abdominal Pain, Diarrhea, Constipation, Melena, Hematochezia, Other Genitourinary: negative: Dysuria, Frequency, Incontinence, Hematuria, Retention , Other Musculoskeletal: negative: Neck Pain, Shoulder Pain, Arm Pain, Back Pain, Hand Pain, Leg Pain, Foot Pain, Other Skin: negative: Rash, Lesions, [place], Bruising, Other - Medications/Allergies Allergies/Adverse Reactions: Allergies Allergy/AdvReac Type Severity Reaction Status Date / Time avocado Allergy THROAT Verified 08/31/14 08:55 SWELLING banana Allergy THROAT Verified 08/31/14 08:55 SWELLING Medications: Current Medications Acetaminophen (Tylenol) 650 mg PO Q4H PRN PRN Reason: Headache/Fever or Pain Hydrocodone Bitart/Acetaminophen ([place] 7.5/325) 1 tab PO Q4H PRN PRN Reason: Moderate Pain (4-6) Al Hydroxide/Mg Hydroxide (Maalox) 30 ml PO Q6H PRN PRN Reason: Heartburn or Indigestion Last Admin: 09/03/17 14:14 Dose: 30 ml Artificial Tears (Tears Naturale) 0 drop EA EYE PRN PRN PRN Reason: Dry Eyes Aspirin (Ecotrin) 81 mg PO DAILY [facility] Last Admin: 09/04/17 07:40 Dose: 81 mg Bisacodyl (Dulcolax) 10 mg IA Q24H PRN PRN Reason: Constipation Carvedilol (Coreg) 12.5 mg PO BID-[facility] Last Admin: 09/04/17 07:39 Dose: 12.5 mg Clopidogrel Bisulfate (Plavix) 75 mg PO DAILY [facility] Last Admin: 09/04/17 07:39 Dose: 75 mg Dextrose/Water (Dextrose 50%) 25 gm SLOW IVP PRN PRN PRN Reason: Hypoglycemia Docusate Sodium (Colace) 100 mg PO BID [facility] Last Admin: 09/04/17 07:40 Dose: 100 mg Dorzolamide/Timolol (Cosopt 2-0.5% Ophth Soln) 1 drop EA EYE BID [facility] Last Admin: 09/04/17 07:42 Dose: 1 drop Famotidine (Pepcid) 20 mg PO DAILY [facility] Last Admin: 09/04/17 07:43 Dose: 20 mg Furosemide (Lasix) 20 mg PO DAILY [facility] Last Admin: 09/04/17 07:40 Dose: 20 mg Glucagon (Glucagon) 1 mg IM PRN PRN PRN Reason: Hypoglycemia Guaifenesin (Robitussin Sf) 200 mg PO Q4H PRN PRN Reason: Cough Hydralazine HCl (Apresoline) 10 mg SLOW IVP Q4H PRN PRN Reason: Systolic BP > 180 Dextrose/Water (D5w) 1,000 mls @ 0 mls/hr IV .Q0M PRN; As Directed PRN Reason: Hypoglycemia Insulin Human Lispro (Humalog) 0 units SC .MODERATE SLIDING SC PRN PRN Reason: Moderate Correctional Scale Insulin Human Lispro (Humalog) 0 units SC .BEDTIME SLIDING SC PRN PRN Reason: Bedtime Correctional Scale Latanoprost (Xalatan 0.005% Ophth Soln) 1 drop EA EYE HS [facility] Last Admin: 09/03/17 20:11 Dose: 1 drop Loperamide HCl (Imodium) 2 mg PO PRN PRN PRN Reason: Diarrhea/Loose Stools Loratadine (Claritin) 10 mg PO DAILYPRN PRN PRN Reason: Sinus Symptoms Magnesium Hydroxide (Milk Of Magnesium) 30 ml PO DAILYPRN PRN PRN Reason: Constipation Metformin HCl (Glucophage) 500 mg PO DAILY [facility] Last Admin: 09/04/17 07:39 Dose: 500 mg Mineral Oil/White Petrolatum (Eucerin Cream) 0 gm TOP BIDPRN PRN PRN Reason: Dry Skin Nitroglycerin (Nitrostat) 0.4 mg SL Q5MIN PRN PRN Reason: Chest Pain Ondansetron HCl (Zofran Odt) 4 mg PO Q6H PRN PRN Reason: Nausea/Vomiting Ondansetron HCl (Zofran) 4 mg IVP Q6H PRN PRN Reason: Nausea/Vomiting Last Admin: 09/03/17 14:13 Dose: 4 mg Phenol (Chloraseptic [place] 180 Ml Bot) 0 ml PO PRN PRN PRN Reason: Sore Throat Polyethylene Glycol (Miralax) 17 gm PO BID [facility] Last Admin: 09/04/17 07:41 Dose: 17 gm Ramipril (Altace) 5 mg PO BID [facility] Last Admin: 09/04/17 07:49 Dose: Not Given Ranolazine (Ranexa) 1,000 mg PO BID [facility] Last Admin: 09/04/17 07:38 Dose: 1,000 mg Rosuvastatin Calcium (Crestor) 5 mg PO BID [facility] Last Admin: 09/04/17 07:37 Dose: 5 mg Senna (Senokot) 2 tab PO HSPRN PRN PRN Reason: Constipation Last Admin: 09/03/17 16:48 Dose: 2 tab Sodium Chloride (Wilbur Nasal [place] 0.65%) 0 ml EA NARE QIDPRN PRN PRN Reason: Nasal Congestion Spironolactone (Aldactone) 12.5 mg PO QAM-WM [facility] Last Admin: 09/04/17 07:49 Dose: 12.5 mg Tamsulosin HCl (Flomax) 0.4 mg PO BID [facility] Last Admin: 09/04/17 07:39 Dose: 0.4 mg Zolpidem Tartrate (Ambien) 5 mg PO HSPRN PRN PRN Reason: Insomnia
--- NOTE | 2017-09-04 10:20 | DIS ---
PRIMARY CARE PHYSICIAN: Dr. Ann Freeman DATE OF ADMISSION: 09/03/2017 DATE OF DISCHARGE: 09/04/2017 DISCHARGE DISPOSITION: Home. PRIMARY DISCHARGE DIAGNOSES: Chest pain, likely due to acid reflux. SECONDARY DISCHARGE DIAGNOSES: Benign enlargement of prostate, coronary artery disease, chronic kidn ey disease stage 3, diabetes type 1, glaucoma, hypertension, ischemic cardiomyopathy, chronic systoli c heart failure. PRIMARY PROCEDURES/OPERATIONS: None. RADIOLOGICAL INVESTIGATION: Chest x-ray normal. SIGNIFICANT LABS: Hemoglobin 10.7, creatinine 1.41, LDL 63. Cardiac enzymes negative x3. DISCHARGE MEDICATIONS: Aspirin 81 mg p.o. daily, Coreg 12.5 mg p.o. b.i.d., Plavix 75 mg p.o. daily, Colace 100 mg p.o. daily, dorzolamide/Timolol maleate ophthalmic drops b.i.d., Pepcid 20 mg p.o. b.i .d., Flonase nasal spray daily, Lasix 20 mg p.o. daily, [place] 7.5 one tablet q.6 hourly p.r.n., iron 65 mg daily, Xalatan eyedrops at bedtime, Glucophage 500 mg p.o. daily, nitroglycerin 0.4 mg sublingu al p.r.n., ramipril 5 mg p.o. daily. Ranexa 1000 mg p.o. b.i.d., Crestor 10 mg p.o. at bedtime, Seno linda 1 tablet p.o. daily, Aldactone 12.5 mg p.o. every 2 days, Flomax 0.4 mg p.o. b.i.d., Coenzyme Q 1 0 400 mg p.o. daily, Ambien 5 mg p.o. at bedtime p.r.n. CONTRAINDICATIONS: None. CODE STATUS: Full code. INPATIENT CONSULTANTS: None. ALLERGIES: AVOCADO and BANANA. DISCHARGE PLAN: Post hospital, the patient will follow up with primary care physician. The patient has appointment with Dr. Williamson and Dr. Harrell at the end of this month. HOSPITAL COURSE: A 76-year-old male with the above-mentioned medical problems who was admitted for c hest pain. His chest pain description this time was consistent with acid reflux. His chest pain imp roved with GI cocktail, but that did not improve with aspirin and nitroglycerin. The patient also im proved with Pepcid. His cardiac enzymes were negative, we did not pursue anymore testing. We did no t consult Cardiology per patient request as he already has appointment at the end of this month. Overall, the patient did very well overnight and we are planning to discharge him home with the same medication. We only added on discharge Pepcid medication. The rest of medications he will continue as per previous. The patient is seen and examined at bedside today. Plan of care discussed with the patient's jayden vasquez at bedside.
== END 2017-09-04 09:53 | disposition home or self-care (01) ==
LOC: ERS 08:35 → 2SW 10:35
PROVIDERS: ADMIT Internal Medicine; ATTEND Internal Medicine
DX: R07.89 Other chest pain (principal); N40.0 Benign prostatic hyperplasia without lower urinary tract symptoms; I25.10 Atherosclerotic heart disease of native coronary artery without angina pectoris; I13.0 Hypertensive heart and chronic kidney disease with heart failure and stage 1 through stage 4 chronic kidney disease, or unspecified chronic kidney disease; E10.22 Type 1 diabetes mellitus with diabetic chronic kidney disease; N18.3 Chronic kidney disease, stage 3 (moderate); I50.22 Chronic systolic (congestive) heart failure; I25.5 Ischemic cardiomyopathy; H40.9 Unspecified glaucoma; I25.2 Old myocardial infarction; E78.5 Hyperlipidemia, unspecified; K59.09 Other constipation; Z91.018 Allergy to other foods; Z79.82 Long term (current) use of aspirin; Z79.899 Other long term (current) drug therapy; Z95.5 Presence of coronary angioplasty implant and graft; Z98.890 Other specified postprocedural states
CPT/HCPCS: 71045; 80048; 80053; 80061; 82550; 82553; 82962 ×2; 83690; 83880; 84484 ×2; 85025 ×2; 93005; 94760; 96374; 96376; 99285; G0378; 36415; 36416; J2405

== ENCOUNTER 2017-11-16 15:59 | Outpatient (CLI) | payer MEDICARE | END 2017-11-16 16:00 | disposition home or self-care (01) | LOC: BICULT 15:59 | PROVIDERS: ATTEND Internal Medicine Cardiovascular Disease | DX: I82.622 Acute embolism and thrombosis of deep veins of left upper extremity (principal) ==

== ENCOUNTER 2018-02-01 15:41 | Outpatient (CLI) | payer MEDICARE | END 2018-02-01 15:42 | disposition home or self-care (01) | LOC: BICCT 15:41 | PROVIDERS: ATTEND Urology | DX: R31.21 Asymptomatic microscopic hematuria (principal); N28.1 Cyst of kidney, acquired; M47.896 Other spondylosis, lumbar region; M51.36 Other intervertebral disc degeneration, lumbar region; M41.9 Scoliosis, unspecified; Z98.890 Other specified postprocedural states; Q79.1 Other congenital malformations of diaphragm | CPT/HCPCS: 74176 ==

== ENCOUNTER 2018-09-21 21:08 | Observation (INO) | payer MEDICARE ==
[2018-09-21 21:37] LABS: #Basophils 0.1 thou/uL (0.0-0.2); #Eosinphils 0.2 thou/uL (0.0-0.7); #Lymphocytes 1.6 thou/uL (1.20-3.40); #Monocytes 0.5 thou/uL (0.11-0.59); #Neutrophils 3.1 thou/uL (1.40-6.50); %Basophils 1.3 % (0.0-1.0); %Eosinophils 4.5 % (0.0-10.0); %Lymphocytes 30.1 % (21.0-51.0); %Monocytes 8.2 % (0.0-10.0); %Neutrophils 55.8 % (42.0-75.0); Hemoglobin 12.8 g/dL (14.0-18.0); Mean Corpuscular HGB CONC 32.7 g/dL (32.0-36.0); Mean Corpuscular Hemoglobin 29.3 pg (27.0-31.0); Mean Corpuscular Volume 89.5 fL (78.0-98.0); Mean Platelet Volume 7.2 fL (7.4-10.4); Platelet Count 173 thou/uL (130-400); RBC Distribution Width 13.2 % (11.5-14.5); Red Blood Cell (RBC) Count 4.37 mill/uL (4.70-6.10); White Blood Cell (WBC) Count 5.5 thou/uL (4.8-10.8)
--- NOTE | 2018-09-21 21:39 | RAD ---
FPortable chest: HISTORY: Chest pain COMPARISON: 09/03/2017 FINDINGS: Elevated left hemidiaphragm is again noted. Gas-filled colon under left hemidiaphragm is se en, similar to prior exam. Lungs appear clear. AICD leads again noted. IMPRESSION: No acute finding
[2018-09-21 22:04] LABS: ALT (SGPT) 19 U/L (8-55); AST (SGOT) 19 U/L (5-34); Albumin 4.2 g/dL (3.4-4.8); Alkaline Phosphatase 80 U/L (40-150); BUN (Urea Nitrogen) 21 mg/dL (8.4-25.7); Bilirubin, Total 0.5 mg/dL (0.2-1.2); CK (CPK) 159 U/L (30-200); Calc. Creatinine Clearance 0 mL/min (70-130); Calcium 9.3 mg/dL (7.8-10.44); Carbon Dioxide 25 mmol/L (23-31); Chloride 106 mmol/L (98-107); Estimated GFR-MDRD 48; Globulin 2.5 g/dL (2.4-3.5); Glucose 122 mg/dL (83-110); Potassium 4.5 mmol/L (3.5-5.1); Protein, Total 6.7 g/dL (5.8-8.1); Sodium 139 mmol/L (136-145)
[2018-09-21 22:13] LABS: Anion Gap 13 mmol/L (10-20)
[2018-09-21] MEDS ORDERED: Aspirin 325 MG TAB ONE (22:58)
[2018-09-21] MEDS ORDERED: Ibuprofen 800 MG TAB ONE (22:58)
[2018-09-22 00:56] LABS: Troponin I Less than 0.010 ng/mL (< 0.028)
[2018-09-22 01:14] VITALS: BMI 28.5
[2018-09-22] MEDS ORDERED: Nitroglycerin 0.4 MG TAB (25 Tab Bottle) SL PRN (01:59)
[2018-09-22] MEDS ORDERED: tiZANidine HCl 4 MG TAB PO PRN (01:59)
[2018-09-22] MEDS ORDERED: HYDROcodone/Acetaminophen 7.5/325 mg Tablet PO PRN (01:59)
[2018-09-22] MEDS ORDERED: Zolpidem Tartrate 5 MG TAB PO PRN (01:59)
[2018-09-22] MEDS ORDERED: Dextrose 50% Abboject 50 ML SYRINGE SLOW IVP PRN (02:28)
[2018-09-22] MEDS ORDERED: HumaLOG 300 UNITS/3 ML VIAL SC PRN (02:28)
[2018-09-22] MEDS ORDERED: Dextrose 5% in Water 1,000 ML IV PRN (02:28)
[2018-09-22] MEDS ORDERED: Acetaminophen 325 MG TAB PO PRN (02:29)
--- NOTE | 2018-09-22 04:54 | HP ---
PRIMARY CARE PHYSICIAN: Dr. Freeman. PURCHASING BUYER: Dr. Williamson. CHIEF COMPLAINT: Chest pain. HISTORY OF PRESENT ILLNESS: Mr. May is an 78-year-old male, who reported to the emergency room on the evening of 09/21/2018, for evaluation of chest pain. He reports that he has had some intermittent chest pain for the last week, was worse this evening. He reports he took an aspirin and nitroglycerin, which did not necessarily help. He did take half of a Lortab, which he takes for chronic back pain, which he also did not really help much. When he came to the emergency room, they gave him Motrin and an aspirin 325, and he reports a little after he was given knows this, his chest pain felt much better. He reports that he fell a little odd today. He said he was not quite himself. He said he always has some shortness of breath when he gets up and ambulates, but reports that he has a little worsening of that last night prior to being seen in the emergency room. Reports that he received a defibrillator pacemaker in late August, September of 2017. He had a cardiac catheterization in June 2017, was found to have LAD 60% stenosis. First obtuse marginal 90% stenosis, 2nd obtuse marginal 90% stenosis, proximal circumflex 40% stenosis and RCA 30% stenosis. He does get recurrent anginal pain, but reports that today it was less of the chest pain and more of the feeling weird, which he reports is what he felt the last time he had a myocardial infarction and that is what concerned him to bring him to the emergency room. He has had troponin x2 on this admission, which were undetectable. He reports that he is scheduled to have an echocardiogram with Dr. Williamson in September. He was admitted to the observation unit for further management. The patient denies any abdominal pain. Does report some nausea today, which has resolved. He denies any radiation of the pain. He denies any abdominal distention. Denies any melena or hematochezia. PAST MEDICAL HISTORY: Includes myocardial infarction in 1999, required a total of 3 cardiac stents, history of non-Q-wave [place] in early June, found distal vessel disease, left eye blindness, cataract surgery, glaucoma, diabetes type 2, hypertension, dyslipidemia, history of diverticulitis, chronic constipation, benign, enlargement of the prostate, history of TIA. PAST SURGICAL HISTORY: Lithotripsy for nephrolithiasis, left knee surgery, carpal tunnel surgery, septoplasty, lumbar spine surgery in 2007, cardiac catheterization with stent placement. He did have a cystoscopy within the last year for his BPH. PSYCHIATRIC HISTORY: Reviewed and negative. SOCIAL HISTORY: The patient is , lives at home with his . No history of tobacco, alcohol, or illicit drug use. FAMILY HISTORY: Positive for coronary artery disease among several of the family members. REVIEW OF SYSTEMS: CONSTITUTIONAL: The patient denies chills, fever. HEENT: Eyes, denies any eye pain or vision changes. ENT, denies rhinorrhea or sore throat. CARDIOVASCULAR: Does report some chest pain or palpitations. RESPIRATORY: Denies cough, shortness of breath. GASTROINTESTINAL: Denies any abdominal pain. Denies any nausea, vomiting, diarrhea. Does report some chronic constipation. GENITOURINARY: Denies any dysuria or hematuria. MUSCULOSKELETAL: Reports chronic back pain. Denies any new injuries or falls. SKIN: Denies rashes, skin changes. NEUROLOGIC: Denies any headache or dizziness. All other systems are reviewed and are negative unless mentioned in the HPI. PHYSICAL EXAMINATION: VITAL SIGNS: Temperature is 97.1, pulse is 66, respiratory rate 18, O2 sats are 97% on room air, blood pressure is 129/75. CONSTITUTIONAL: The patient appears pain free. GENERAL: He is alert and oriented to person, place, and time. HEENT: Head is atraumatic and normocephalic. Eyes; extraocular muscles are intact. No nystagmus. ENT; mouth exam is normal. Mucous membranes are moist. NECK: Normal range of motion. Trachea is midline. RESPIRATORY: Breath sounds are clear. No findings of respiratory distress. CARDIOVASCULAR: Heart sounds are normal. Heart rate, regular rate and rhythm. There is a pacemaker defibrillator in place in the left upper chest. ABDOMEN: Nontender. Bowel sounds are heard. BACK: Normal range of motion, normal inspection. UPPER EXTREMITIES: Normal range of motion. Motor strength is normal. Sensation intact. Radial pulses equal bilaterally. LOWER EXTREMITIES: Normal range of motion. Motor strength is normal. Sensation intact. Pedal pulses are present and equal bilaterally. NEUROLOGIC: The patient is oriented to person, place, and time. Speech is normal. SKIN: Warm, dry and normal in color. PSYCHIATRIC: He as a normal affect. LABORATORY DATA: EKG in the emergency room shows atrial flutter, infrequent premature ventricular complexes with aberrant conduction. Variable AV block, left ventricular hypertrophy with QRS widening. KNOWN ALLERGIES: Avocado and bananas. MEDICATIONS: 1. Furosemide 10 mg p.o. daily. 2. Eliquis 5 mg p.o. b.i.d. 3. Aspirin 81 mg p.o. daily. 4. Earwax drops 5-10 drops each ear as needed. 5. Colace 100 mg p.o. b.i.d. 6. Tolazamide. 7. Timolol one drop each eye b.i.d. 8. Lunesta 3 mg p.o. at bedtime p.r.n. 9. Finasteride 5 mg p.o. daily. 10. Flonase 1 spray nasal daily. 11. Hydrocodone/APAP 7.5/325 one tab p.o. q.6h. 12. Iron 65 mg p.o. daily. 13. Xalatan 0.005% one drop each eye at bedtime. 14. Ramipril 5 mg p.o. 1500. 15. Rosuvastatin 10 mg p.o. at bedtime. 16. Flomax 0.4 mg p.o. b.i.d. 17. Zanaflex 4 mg p.o. half a tablet q.8 hours as needed. 18. Coenzyme Q 400 mg p.o. daily. 19. Coreg 12.5 mg p.o. b.i.d. 20. Plavix 75 mg p.o. daily. 21. Nitroglycerin 0.4 mg sublingual q.5 minutes as needed. 22. Ranexa 1000 mg p.o. b.i.d. LABORATORY DATA: Sodium is 139, potassium 4.5, chloride 106, carbon dioxide 25, gap is 13, BUN is 21, creatinine is 1.69, estimated GFR is 48, calcium is 9.3, glucose 122. Liver enzymes are unremarkable. Troponin x2 are undetectable. White blood cell count is 5.5, hemoglobin is 12.8, hematocrit is 39.1, platelet count is 173. ASSESSMENT/PLAN: 1. Chest pain. We will repeat an echocardiogram since it has been close to a year since he has had one. We will trend troponins. We will ask Cardiology to consult. We will interrogate the pacemaker/defibrillator, his automatic implantable cardioverter-defibrillator. The patient does have a history of coronary artery disease and we will restart his home medications. The patient does have atrial flutter noted on the EKG on this visit. The patient is already anticoagulated and we will restart those. 2. Diabetes type 2. We will restart home medications. We will add a sliding scale as needed. We will check sugars before breakfast and at bedtime. 3. Hypertension. We will restart home medications. We will trend. 4. Benign prostate hypertrophy, appears stable. We will restart home medications. 5. Hyperlipidemia. We will restart home medications. 6. Gastrointestinal prophylaxis will be started. Deep vein thrombosis prophylaxis is not necessary as patient is already anticoagulated. 7. Hospital course will be dependent on clinical findings. Job ID: [id number]
[2018-09-22 05:37] LABS: #Eosinphils 0.1 thou/uL (0.0-0.7); #Lymphocytes 1.5 thou/uL (1.20-3.40); #Monocytes 0.5 thou/uL (0.11-0.59); #Neutrophils 2.3 thou/uL (1.40-6.50); %Basophils 0.9 % (0.0-1.0); %Eosinophils 3.2 % (0.0-10.0); %Lymphocytes 33.2 % (21.0-51.0); %Monocytes 10.5 % (0.0-10.0); %Neutrophils 52.2 % (42.0-75.0); Hemoglobin 11.7 g/dL (14.0-18.0); Mean Corpuscular Hemoglobin 29.2 pg (27.0-31.0); Mean Corpuscular Volume 91.3 fL (78.0-98.0); Mean Platelet Volume 8.1 fL (7.4-10.4); Platelet Count 152 thou/uL (130-400); RBC Distribution Width 13.3 % (11.5-14.5); Red Blood Cell (RBC) Count 4.02 mill/uL (4.70-6.10); White Blood Cell (WBC) Count 4.4 thou/uL (4.8-10.8)
[2018-09-22 05:42] LABS: Anion Gap 13 mmol/L (10-20); BUN (Urea Nitrogen) 22 mg/dL (8.4-25.7); Calc. Creatinine Clearance 48 mL/min (70-130); Calcium 8.8 mg/dL (7.8-10.44); Carbon Dioxide 21 mmol/L (23-31); Chloride 108 mmol/L (98-107); Estimated GFR-MDRD 53; Glucose 116 mg/dL (83-110); Potassium 4.7 mmol/L (3.5-5.1); Sodium 137 mmol/L (136-145)
[2018-09-22 06:21] LABS: Troponin I Less than 0.010 ng/mL (< 0.028)
[2018-09-22] MEDS ORDERED: Carvedilol 25 MG TAB PO SCH (08:00)
[2018-09-22] MEDS ORDERED: Ferrous Sulfate 325 MG TAB PO SCH (08:00)
[2018-09-22] MEDS ORDERED: Clopidogrel Bisulfate 75 MG TAB PO SCH (09:00)
[2018-09-22] MEDS ORDERED: Tamsulosin HCl 0.4 MG CAP PO SCH (09:00)
[2018-09-22] MEDS ORDERED: Ubidecarenone 50 MG CAP PO SCH (09:00)
[2018-09-22] MEDS ORDERED: DorzolamidE/Timolol 2%/0.5% Ophth Soln 10 ml Bottle EA EYE SCH (09:00)
[2018-09-22] MEDS ORDERED: Famotidine 20 MG TAB PO SCH (09:00)
[2018-09-22] MEDS ORDERED: Apixaban 5 MG TAB PO SCH (09:00)
[2018-09-22] MEDS ORDERED: Aspirin 81 mg Enteric Coated Tablet PO SCH (09:00)
[2018-09-22] MEDS ORDERED: Furosemide 20 MG TAB PO SCH (09:00)
[2018-09-22] MEDS ORDERED: Docusate 100 MG CAP PO SCH (09:00)
[2018-09-22] MEDS ORDERED: Finasteride 5 MG TAB PO SCH (09:00)
[2018-09-22 12:18] VITALS: BP 124/69; TEMP 98.1
[2018-09-22 12:46] LABS: Bilirubin Negative (Negative); Blood, Urine Negative (Negative); Clarity CLEAR (Clear); Glucose, Urine (Dipstick) Negative (Negative); Leukocyte Trace (Negative); Nitrite Negative (Negative); Protein, Urine (Dipstick) Negative (Neg-Trace); Specific Gravity, Urine 1.011 (1.002-1.036); Urobilinogen 0.2 mg/dL (0.2-1.0)
[2018-09-22 12:54] LABS: Urine Culture Reflex No No
--- NOTE | 2018-09-22 13:39 | CON ---
DATE OF CONSULTATION: 09/22/2018 PRIMARY OUTDOOR PURSUITS INSTRUCTOR: Vito Williamson MD REASON FOR CONSULTATION: Chest pain. HISTORY OF PRESENT ILLNESS: Mr. May is a pleasant 78-year-old gentleman, who comes to the hospital for chest pain. He has chronic stable angina from severe small vessel disease that is not amenable to any revascularization. He has chronic angina, he takes sublingual nitroglycerin all the time for. He felt a little different this time so he decided to come in for evaluation. Cardiology is being consulted for further evaluation. His troponins have been undetectable. He is pain free. He states that he wants to go back home as everything has looked fine. He also has dilated cardiomyopathy with an EF of 35%. Last evaluation was about a year ago when he had his heart catheterization. He has an AICD in place. PAST MEDICAL HISTORY: 1. History of IA in the year 1999. 2. Left eye blindness. 3. Cataract surgery. 4. Glaucoma. 5. Type 2 diabetes. 6. Hypertension. 7. Hyperlipidemia. 8. Diverticulitis. 9. Chronic constipation. 10. BPH. 11. TIAs. SURGICAL HISTORY: 1. Lithotripsy for nephrolithiasis. 2. Left knee surgery. 3. Carpal tunnel surgery. 4. Septoplasty. 5. Lumbar spine surgery. 6. Cardiac catheterizations with stents in the past. 7. Cystoscopies for BPH. SOCIAL HISTORY: No alcohol, tobacco, or drugs. FAMILY HISTORY: Early coronary artery disease in several family members. OUTPATIENT MEDICATIONS: Reviewed on Ling Braswell's note, include, 1. Lasix. 2. Eliquis 5 mg b.i.d. 3. Aspirin 81. 4. Earwax drops. 5. Colace. 6. Tolazamide. 7. Timolol eye drops. 8. Lunesta. 9. Finasteride. 10. Flonase. 11. Hydrocodone. 12. Iron. 13. Xalatan. 14. Ramipril. 15. Rosuvastatin. 16. Flomax. 17. Zanaflex. 18. Coenzyme Q10. 19. Coreg. 20. Plavix 75 mg a day. 21. Sublingual nitroglycerin. 22. Ranexa 1000 mg b.i.d. ALLERGIES: AVOCADO AND BANANAS. REVIEW OF SYSTEMS: A 12-point review of systems was done and was all negative unless stated in the history of present illness. PHYSICAL EXAMINATION: VITAL SIGNS: Temperature 98.1, pulse 68, respiratory rate 18, saturating 97% on room air, and blood pressure 124/69. GENERAL: Awake, alert, and oriented x3. No distress. HEENT: Normocephalic and atraumatic. NECK: Supple. LUNGS: Clear. CARDIOVASCULAR: S1 and S2. No S3 or S4. No murmurs. ABDOMEN: Soft. Positive bowel sounds. EXTREMITIES: No edema. SKIN: Warm and dry. LABORATORY DATA: Laboratory work was reviewed. CBC is unremarkable. Chemistries unremarkable. Creatinine went from 1.69 to 1.5. Troponin is undetectable x3. BNP was 161. UA was negative. EKG was reviewed. Chest x-ray was reviewed. ASSESSMENT AND PLAN: 1. Chronic stable angina. This is the same pain he always has. He has non-revascularizable coronary artery disease and would like to go home as he is pain free and he is content to know that if his troponins are normal. Echocardiogram was also reviewed, it shows a reduced EF. This is something that is not new. He has an AICD in place. 2. He has a followup appointment with Dr. Williamson in the next three weeks, he will keep this. Thank you for letting us to participate in the care of your patient. We will sign off. He could be discharged home today and follow up with Dr. Williamson as scheduled. Job ID: [id number]
[2018-09-22] MEDS ORDERED: Ramipril 5 MG CAP PO SCH (15:00)
--- NOTE | 2018-09-22 19:20 | DIS ---
DATE OF ADMISSION: 09/21/2018 DATE OF DISCHARGE: 09/22/2018 ALLERGIES: AVOCADO AND BANANA. CHIEF COMPLAINT: Chest pain. FINAL DIAGNOSES: 1. Chest pain, chronic, atypical, acute coronary syndrome ruled out, resolved. 2. Coronary artery disease, status post stents many years ago, now with small vessel disease that is not amenable to further intervention. 3. Ischemic cardiomyopathy, ejection fraction of 20% to 25%, status post BiVICD last year, currently euvolemic. 4. Chronic renal insufficiency, stage 3, likely secondary to cardiorenal syndrome, creatinine stable. 5. Type 2 diabetes mellitus. 6. Hypertension. 7. Hyperlipidemia. 8. Systolic murmur secondary to aortic sclerosis. PROCEDURES PERFORMED: None. LABORATORY DATA: White blood cell count 5.5, hemoglobin 12.8, hematocrit 39.1, and platelets are 173. Sodium 137, potassium 4.7, chloride 108, carbon dioxide 21, anion gap 13, BUN 12, creatinine 1.55, and glucose 116. Serial troponin negative x3. BNP 161. Urinalysis was negative aside from trace leukocyte esterase. IMAGING RESULTS: Echocardiogram showed ejection fraction visually estimated at 20% to 25%, grade 1/3 diastolic dysfunction, mildly dilated left atrium, mild MR, aortic valve sclerosis, but valve opens well, mild AR, and mild TR. Chest x-ray showed stable elevated left hemidiaphragm, gas-filled colon under left hemidiaphragm seen similar to prior exam. Lungs clear. AICD noted. CONSULTATION: Dr. Rubio of Cardiology. HOSPITAL COURSE: The patient is a pleasant male with past medical history significant for ischemic cardiomyopathy, chronic renal insufficiency, hypertension, and type 2 diabetes mellitus, who presented to the hospital with complaints of chest pain. He has had similar episodes of chest pain in the past , but states that he had some associated confusion and shortness of breath, which did worry him. He describes this chest pain as sharp. He did take some aspirin and nitroglycerin, which did not help the pain as much as Motrin and aspirin, which were given in the ER, which he states that it did help somewhat to relieve his chest discomfort. The patient was admitted for chest pain rule out. The family requested cardiology consult. Workup included an echocardiogram, which showed stable cardiomyopathy with EF 20% to 25%, findings outlined as above. He was seen in consultation with Dr. Rubio, who recommended continued medical therapy for his chronic CAD and followup with his primary drafter civil engineering, Dr. Williamson. The patient has ambulated around the room. His presenting symptoms of "feeling out of it" have all resolved along with his chest pain. He feels back to his baseline. PHYSICAL EXAMINATION: VITAL SIGNS: Blood pressure 124/69, pulse 68, respirations 18, O2 saturation 97 % on room air, and temperature is 98.1. GENERAL: Awake and alert, comfortable, in no respiratory distress. HEENT: Atraumatic and normocephalic. Eye movements intact. Pupils are equal, round, and reactive to light and accommodation. NECK: Supple. No appreciable JVD. No lymphadenopathy. No carotid bruits. RESPIRATORY: Regular respiratory rate and pattern. Clear to auscultation bilaterally. No rhonchi, wheezes, or crackles noted. CARDIOVASCULAR: S1 and S2. There is a harsh systolic murmur that radiates to the neck. No rubs or gallops. GI: Soft, nontender, normal bowel sounds. PERIPHERAL VASCULAR: +1 pitting edema bilaterally, palpable pulses. MUSCULOSKELETAL: No joint effusions or swelling. NEUROLOGIC: Awake and alert x3. Cranial nerves 2 through 12 intact. No focal deficits. SKIN: Warm and dry. No rashes or skin discolorations. CONDITION AT DISCHARGE: Stable. DISCHARGE MEDICATIONS: He will continue his home medication regimen, which includes, 1. Eliquis 5 mg p.o. b.i.d. 2. Aspirin 81 mg daily. 3. Carvedilol 12.5 mg p.o. b.i.d. 4. Plavix 75 mg daily. 5. Docusate 100 mg capsule. 6. Cosopt ophthalmic solution one drop each eye b.i.d. 7. Eszopiclone 3 mg tablet p.o. q.h.s. 8. Famotidine 20 mg tablet one tablet p.o. b.i.d. 9. Finasteride 5 mg tablet daily. 10. Flonase nasal spray one spray nasal b.i.d. 11. Lasix 20 mg tablet one tab daily. 12. Hydrocodone/acetaminophen 7.5 mg/325 tablet one tablet p.o. q.6 hours p.r.n. 13. Iron 18 mg tablet one p.o. daily. 14. Xalatan eyedrops one drop each eye q.h.s. 15. Sublingual nitroglycerin 0.4 mg p.r.n. chest pain. 16. Ramipril 5 mg tablet one tablet daily. 17. Ranexa 1000 mg tablet p.o. b.i.d. 18. Crestor 10 mg tablet p.o. q.h.s. 19. Senna 8.6 mg p.o. b.i.d. 20. Flomax 0.4 mg p.o. b.i.d. 21. Tizanidine 4 mg p.o. q.8 hours. 22. Coenzyme Q10 of 400 mg p.o. daily. DISCHARGE DISPOSITION: Home. PLAN: The patient will continue his current medication regimen. His cardiac medications are largely optimized at this time. He will continue low-sodium diet and close monitoring of weight gain or worsening pedal edema. The patient will follow up with his primary drafter civil engineering in the next three weeks. He is discharged home today in good condition. All questions answered to the patient's and family's satisfaction. Care discussed with Dr. Weber, who agrees. Job ID: [id number] MTDD
[2018-09-22] MEDS ORDERED: Latanoprost 0.005% Ophth Soln 2.5 ml Bottle EA EYE SCH (21:00)
[2018-09-22] MEDS ORDERED: Rosuvastatin 10 MG TAB PO SCH (21:00)
== END 2018-09-22 15:33 | disposition home or self-care (01) ==
LOC: ERS 21:08 → 2SW 22:58
PROVIDERS: ADMIT Hospitalist; ATTEND Hospitalist
DX: R07.89 Other chest pain (principal); I12.9 Hypertensive chronic kidney disease with stage 1 through stage 4 chronic kidney disease, or unspecified chronic kidney disease; E11.22 Type 2 diabetes mellitus with diabetic chronic kidney disease; N18.3 Chronic kidney disease, stage 3 (moderate); I25.2 Old myocardial infarction; I08.2 Rheumatic disorders of both aortic and tricuspid valves; I25.10 Atherosclerotic heart disease of native coronary artery without angina pectoris; I25.5 Ischemic cardiomyopathy; I70.0 Atherosclerosis of aorta; E78.5 Hyperlipidemia, unspecified; N40.0 Benign prostatic hyperplasia without lower urinary tract symptoms; K59.09 Other constipation; Z79.01 Long term (current) use of anticoagulants; Z79.51 Long term (current) use of inhaled steroids; Z79.82 Long term (current) use of aspirin; Z79.899 Other long term (current) drug therapy; Z91.018 Allergy to other foods; Z95.5 Presence of coronary angioplasty implant and graft
CPT/HCPCS: 71045; 80048; 80053; 81003; 82550; 82962; 83880; 84484 ×3; 85025 ×2; 93005; 93306; 97139; 99285; G0378 ×2; 36415; 36416

== ENCOUNTER 2019-03-30 17:05 | Observation (INO) | payer MEDICARE ==
[2019-03-30 17:47] LABS: #Basophils 0.1 thou/uL (0.0-0.2); #Eosinphils 0.1 thou/uL (0.0-0.7); #Lymphocytes 1.6 thou/uL (1.20-3.40); #Monocytes 0.5 thou/uL (0.11-0.59); #Neutrophils 2.9 thou/uL (1.40-6.50); %Eosinophils 2.7 % (0.0-10.0); %Lymphocytes 31.4 % (21.0-51.0); %Monocytes 9.4 % (0.0-10.0); %Neutrophils 55.4 % (42.0-75.0); Hemoglobin 13.7 g/dL (14.0-18.0); Mean Corpuscular HGB CONC 33.8 g/dL (32.0-36.0); Mean Corpuscular Hemoglobin 30.4 pg (27.0-31.0); Mean Corpuscular Volume 90.1 fL (78.0-98.0); Mean Platelet Volume 7.8 fL (7.4-10.4); Platelet Count 167 thou/uL (130-400); RBC Distribution Width 13.3 % (11.5-14.5); White Blood Cell (WBC) Count 5.2 thou/uL (4.8-10.8)
[2019-03-30 17:52] LABS: INR-International Normal Ratio 1.1; PTT 37.2 SEC (22.9-36.1); Prothrombin Time 14.1 SEC (12.0-14.7)
--- NOTE | 2019-03-30 17:56 | CT ---
CT HEAD WITHOUT CONTRAST: History: Dizziness. Weakness. Comparison: 07-11-17 FINDINGS: Mild cortical volume loss is stable. Ventricles have normal size and position. No evidence of cortica l infarct. No mass or hemorrhage. No interval change. IMPRESSION: No acute findings. POS: OFF
--- NOTE | 2019-03-30 17:57 | RAD ---
PORTABLE CHEST: History: Dizziness, weakness. Comparison: 09-21-18 FINDINGS: Elevated left hemidiaphragm is again noted. Visualized lung lazar appear clear and unchanged. There is cardiomegaly. AICD leads are unchanged. IMPRESSION: Elevated left hemidiaphragm is a stable finding. No acute interval change. POS: OFF
[2019-03-30 18:32] LABS: ALT (SGPT) 20 U/L (8-55); AST (SGOT) 21 U/L (5-34); Albumin 4.3 g/dL (3.4-4.8); Alkaline Phosphatase 56 U/L (40-110); Anion Gap 14 mmol/L (10-20); BUN (Urea Nitrogen) 22 mg/dL (8.4-25.7); Bilirubin, Total 0.7 mg/dL (0.2-1.2); CK (CPK) 178 U/L (30-200); Calc. Creatinine Clearance 0 mL/min (70-130); Calcium 9.4 mg/dL (7.8-10.44); Carbon Dioxide 23 mmol/L (23-31); Chloride 106 mmol/L (98-107); Estimated GFR-MDRD 55; Globulin 3.1 g/dL (2.4-3.5); Glucose 96 mg/dL (83-110); Potassium 4.8 mmol/L (3.5-5.1); Protein, Total 7.4 g/dL (5.8-8.1); Sodium 138 mmol/L (136-145)
[2019-03-30 18:52] LABS: Bacteria/HPF None Seen HPF (None Seen); Bilirubin Negative (Negative); Blood, Urine Negative (Negative); Clarity Clear (Clear); Glucose, Urine (Dipstick) Normal (Negative); Leukocyte 25 Leu/uL (Negative); Mucous/LPF 1+ LPF (<2+); Nitrite Negative (Negative); Protein, Urine (Dipstick) 20 mg/dL (Neg-Trace); RBC/HPF 0-3 HPF (0-3); Squamous Epithelial 0-3 HPF (0-3); Urobilinogen Normal mg/dL (Less than 2); WBC/HPF 0-3 HPF (0-3)
[2019-03-30] MEDS ORDERED: Acetaminophen 650 MG Suppository PR PRN (19:44)
[2019-03-30] MEDS ORDERED: Ondansetron ODT 4 MG TAB PO PRN (19:44)
[2019-03-30] MEDS ORDERED: Ondansetron PF 4 MG/2 ML Vial IVP PRN (19:44)
[2019-03-30] MEDS ORDERED: Acetaminophen 325 MG TAB PO PRN (19:44)
[2019-03-30] MEDS ORDERED: Aspirin Chewable 81 MG TAB ONE (20:15)
[2019-03-30 20:59] LABS: Troponin I 0.014 ng/mL (< 0.028)
[2019-03-30 21:49] VITALS: BMI 28.4
--- NOTE | 2019-03-30 22:25 | HP ---
CODE STATUS: Full code. TIME OF EVALUATION: 7:40 p.m. CHIEF COMPLAINT: Slurred speech and generalized weakness. HISTORY OF PRESENT ILLNESS: This is an 78-year-old male patient with past medical history of atrial fibrillation with pacemaker placement, coronary artery disease, status post stents, diabetes type 2, BPH, hyperlipidemia, hypertension, previous TIAs, came to the hospital after having slurred speech. The symptoms started around 3 hours ago with no clear triggers, no alleviating factors. The patient is still feeling the same. He was watching TV while associated with lightheadedness. REVIEW OF SYSTEMS: CONSTITUTIONAL: No fever, or chills. The patient does have generalized weakness. RESPIRATORY: No cough, sputum production, or shortness of breath. CARDIOVASCULAR: No chest pain or palpitation. GASTROINTESTINAL: No nausea, no vomiting, diarrhea, or abdominal pain. DELICATESSEN GOODS STOCK CLERK: The patient feels dizzy with slurred speech. No headaches. GENITOURINARY: No burning on urination. EXTREMITIES: No leg swelling. All other systems were reviewed and negative except for the findings mentioned above. PAST MEDICAL HISTORY: As mentioned in HPI. PAST SURGICAL HISTORY: Cardiac stents, lithotripsy, left knee surgery, carpal tunnel surgery, septoplasty in 1972. Spinal surgery, bilateral cataracts, AICD and pacemaker. PSYCHIATRIC HISTORY: No previous psychiatric history. SOCIAL HISTORY: No alcohol. No drugs. No smoking history. Lives with family. FAMILY HISTORY: Mother, father, siblings all have diabetes, hypertension, hyperlipidemia as per patient. KNOWN ALLERGIES: Avocado and banana flavor. REPORTED MEDICATIONS: 1. Furosemide. 2. Carvedilol. 3. Aspirin. 4. Latanoprost. 5. CoQ10. 6. Famotidine. 7. Finasteride. 8. Tamsulosin. 9. Eliquis. 10. Dorzolamide. 11. Timolol. 12. Eszopiclone. 13. Ramipril. 14. Ranexa. 15. Penicillin. PHYSICAL EXAMINATION: VITAL SIGNS: On presentation, blood pressure 120/78 with heart rate 73, respiratory rate was 15, oxygen saturation was 96% on room air. GENERAL APPEARANCE: The patient is alert, oriented, not in acute distress. HEENT: Eyes, normal conjunctivae. Moist oral mucosa. Anicteric. No JVD. RESPIRATORY: Bilateral air entry. No rales. No wheezing. Symmetric expansion. CARDIOVASCULAR: Normal rate, regular rhythm. No murmurs. No gallop. No edema. ABDOMEN: Soft, normal bowel sounds. MUSCULOSKELETAL: Baseline range of motion and strength. SKIN: Warm, intact. No pallor. No rash. No redness. Capillary refill seems to be intact. NEUROLOGIC: The patient has slurred speech. No evidence of any new focal weakness. The patient does report generalized weakness. Cranial nerves seems to be intact. PSYCHIATRIC: The patient is in good mood. No anxiety. Optimal judgment. IMAGING STUDIES: EKG was reviewed. The patient has atrial sensed, ventricular paced rhythm at the rate of 79, ND 132, QRS 138, QT corrected 468. Chest x-ray was reviewed. The patient has elevated left hemidiaphragm that is a stable finding. No acute interval changes. Brain CT was done, no acute findings. LABORATORY DATA: Labs were reviewed. The patient has white count 5.2, hemoglobin 13.7, MCV 90, platelet count 167. Coagulation; PT 14.1, INR 1.1, PTT 37.2. Chemistry; sodium 138, potassium 4.8, chloride 106, carbon dioxide 23, anion gap 14, BUN 22, creatinine 1.48, previous creatinine was 1.44, GFR 55, glucose 96, calcium 9.4, total bilirubin 0.7. LFTs were negative. Beta natriuretic peptide 122.9. Albumin 4.3. Urine was done, was normal. ASSESSMENT AND PLAN: The patient will be placed in the hospital with following medical problems. 1. Possible transient ischemic attack. The patient has slurred speech that has been present for the past 4 hours. No other significant symptoms other than associated with generalized weakness. We will do a stroke protocol. We will hold MRI right now. The patient has recent placement of pacemaker/AICD. The daughter reported that probably he could be able to have an MRI, but this can be verified with the cardiology team in the morning. 2. Chronic kidney disease stage 3 with GFR 55. This is chronic, seems to be stable. Monitor kidney function. 3. Controlled hypertension. Reconcile home medications. Could allow permissive hypertension given neurological findings. 4. Hyperlipidemia, low-cholesterol diet is advised. Reconcile home medications. 5. Coronary artery disease, this is chronic, seems to be stable. 6. Controlled diabetes, reconcile home medications. Adjust treatment as needed. Control carb food. 7. Deep venous thrombosis prophylaxis. The patient is on chronic anticoagulation. We will continue for now. Job ID: [id number]
[2019-03-30 23:58] LABS: Troponin I Less than 0.010 ng/mL (< 0.028)
[2019-03-31] MEDS ORDERED: Rosuvastatin 10 MG TAB PO SCH ×2 (00:45→21:00)
[2019-03-31] MEDS ORDERED: Zolpidem Tartrate 5 MG TAB PO SCH (00:45)
[2019-03-31] MEDS ORDERED: Tamsulosin HCl 0.4 MG CAP PO SCH ×3 (00:45→21:00)
[2019-03-31] MEDS ORDERED: Apixaban 2.5 MG TAB PO SCH ×2 (01:15→09:00)
[2019-03-31 04:51] LABS: #Eosinphils 0.2 thou/uL (0.0-0.7); #Lymphocytes 1.8 thou/uL (1.20-3.40); #Monocytes 0.5 thou/uL (0.11-0.59); #Neutrophils 2.9 thou/uL (1.40-6.50); %Basophils 0.7 % (0.0-1.0); %Eosinophils 3.2 % (0.0-10.0); %Lymphocytes 33.3 % (21.0-51.0); %Monocytes 9.2 % (0.0-10.0); %Neutrophils 53.6 % (42.0-75.0); Mean Corpuscular HGB CONC 33.2 g/dL (32.0-36.0); Mean Corpuscular Hemoglobin 30.1 pg (27.0-31.0); Mean Corpuscular Volume 90.6 fL (78.0-98.0); Mean Platelet Volume 7.3 fL (7.4-10.4); Platelet Count 147 thou/uL (130-400); RBC Distribution Width 13.2 % (11.5-14.5); Red Blood Cell (RBC) Count 3.99 mill/uL (4.70-6.10); White Blood Cell (WBC) Count 5.4 thou/uL (4.8-10.8)
[2019-03-31 05:13] LABS: Anion Gap 10 mmol/L (10-20); BUN (Urea Nitrogen) 23 mg/dL (8.4-25.7); Calc. Creatinine Clearance 55 mL/min (70-130); Calcium 8.9 mg/dL (7.8-10.44); Carbon Dioxide 25 mmol/L (23-31); Cardiac Risk 2.3 (Less than 4.5); Chloride 107 mmol/L (98-107); Cholesterol 124 mg/dl (< 200 Desired); Estimated GFR-MDRD 61; Glucose 98 mg/dL (83-110); HDL Cholesterol 55 mg/dL (>60 Neg Risk); LDL Cholesterol, Calculated 58 mg/dL; Potassium 3.9 mmol/L (3.5-5.1); Sodium 138 mmol/L (136-145); Triglycerides 53 mg/dL (Less than 150)
--- NOTE | 2019-03-31 08:13 | ULT ---
BILATERAL CAROTID DUPLEX ULTRASOUND: HISTORY: Stroke. TECHNIQUE: Dao scale ultrasound with color flow and spectral Doppler imaging of the extracranial carotid artery systems is performed bilaterally. FINDINGS: There is plaque formation on both sides. The peak systolic velocity in the right ICA measures 72 cm/s with an end-diastolic velocity of 18 cm/ s and a systolic ratio of 0.99. The peak systolic velocity in the left ICA measures 66 cm/s with an end-diastolic velocity of 20 cm/s and a systolic ratio of 0.71. Flow in both vertebral arteries remains antegrade. IMPRESSION: No evidence of a hemodynamically significant stenosis. POS: OFF
[2019-03-31] MEDS ORDERED: Senokot 8.6 MG TAB PO PRN ×2 (09:19→09:47)
[2019-03-31] MEDS ORDERED: Nitroglycerin 0.4 MG TAB (25 Tab Bottle) SL PRN (09:19)
[2019-03-31] MEDS ORDERED: Fluticasone Propionate Nasal Spray 16 gm Bottle NASAL PRN ×2 (09:19→09:44)
[2019-03-31] MEDS ORDERED: ESZOPICLONE 3 MG PO PRN ×2 (09:19→09:49)
[2019-03-31] MEDS ORDERED: HYDROcodone/Acetaminophen 7.5/325 mg Tablet PO PRN (09:19)
[2019-03-31] MEDS ORDERED: Finasteride 5 MG TAB PO SCH (09:30)
[2019-03-31] MEDS ORDERED: Carvedilol 6.25 MG TAB PO SCH ×2 (09:30→17:00)
[2019-03-31] MEDS ORDERED: Ubidecarenone 50 MG CAP PO SCH (10:00)
[2019-03-31] MEDS ORDERED: Aspirin 81 mg Enteric Coated Tablet PO SCH (10:00)
[2019-03-31] MEDS ORDERED: Ferrous Gluconate 324 MG TAB PO SCH (10:00)
[2019-03-31] MEDS ORDERED: Famotidine 20 MG TAB PO SCH ×2 (10:00→21:00)
[2019-03-31 15:48] VITALS: BP 139/86; TEMP 97.8
[2019-03-31] MEDS ORDERED: Carvedilol 25 MG TAB PO SCH (17:00)
[2019-03-31] MEDS ORDERED: Ramipril 5 MG CAP PO SCH (19:00)
--- NOTE | 2019-03-31 20:09 | DIS ---
DATE OF ADMISSION: 03/30/2019 DATE OF DISCHARGE: 03/31/2019 DISCHARGE DISPOSITION: Home. FOLLOWUP: Follow up with primary care physician, Dr. Freeman in 1 week. DISCHARGE MEDICATIONS: Same as admission medications. No changes were made. INPATIENT CONSULT: Neurology, Dr. Galloway. BRIEF HOSPITAL COURSE: The patient is an 78-year-old male with atrial fibrillation, on anticoagulation; coronary artery disease; diabetes mellitus, type 2; hypertension; and hyperlipidemia; presented to the emergency room with generalized weakness along with slurriness of speech. Please refer to the history and physical dated March, by Dr. Kolb for further details. The patient was admitted to the hospital with a diagnosis of transient ischemic attack, rule out CVA. He was monitored in the stroke unit. His troponins remained negative. Initial CT scan of the brain was negative for acute CVA. Carotid Doppler was negative for hemodynamically significant stenosis. Anticoagulation was continued. MRI of the brain was not done due to pacemaker AICD. I discussed with Neurology, Dr. Galloway, who recommended to continue aspirin and Eliquis. He was advised to follow up with Dr. Galloway as outpatient. FINAL DIAGNOSES: 1. Transient ischemic attack. 2. Coronary artery disease, status post stent. 3. Diabetes mellitus, type 2. 4. Hypertension. 5. Hyperlipidemia. 6. Benign prostatic hypertrophy. 7. History of transient ischemic attacks. 8. Left eye blindness. 9. Chronic kidney disease, stage 3. 10. Chronic anemia. Plan was discussed with the patient and the family at the bedside. They stated understanding. Job ID: [id number]
[2019-03-31] MEDS ORDERED: Latanoprost 0.005% Ophth Soln 2.5 ml Bottle EA EYE SCH (21:00)
[2019-03-31] MEDS ORDERED: DorzolamidE/Timolol 2%/0.5% Ophth Soln 10 ml Bottle EA EYE SCH (21:00)
[2019-03-31] MEDS ORDERED: Icosapent Ethyl [Vascepa] 2 CAP PO SCH (21:00)
[2019-03-31] MEDS ORDERED: Non-Formulary Item 1 EACH (Famotidine 20 MG) PO SCH (21:00)
[2019-03-31] MEDS ORDERED: ICOSAPENT ETHYL PO SCH (21:00)
[2019-04-01] MEDS ORDERED: Ferrous Gluconate 324 MG TAB PO SCH (09:00)
[2019-04-01] MEDS ORDERED: UBIDECARENONE 400 MG PO SCH (09:00)
[2019-04-01] MEDS ORDERED: Finasteride 5 MG TAB PO SCH (09:00)
[2019-04-01] MEDS ORDERED: Aspirin 81 mg Enteric Coated Tablet PO SCH (09:00)
[2019-04-01] MEDS ORDERED: Ubidecarenone 50 MG CAP PO SCH (09:00)
--- NOTE | 2019-04-06 02:14 | EKG ---
Test Reason : Blood Pressure : / mmHG Vent. Rate : 079 BPM Atrial Rate : 079 BPM P-R Int : 132 ms QRS Dur : 138 ms QT Int : 400 ms P-R-T Axes : 055 -32 105 degrees QTc Int : 458 ms Atrial-sensed ventricular-paced rhythm Abnormal ECG Confirmed by TOMMY PADRON M.D. ([id number]), associate entertainment editor KELLI COOL ([id number] on 04/06/2019 2:14:05 AM Referred By: Confirmed By:TOMMY PADRON M.D.
== END 2019-03-31 15:56 | disposition home or self-care (01) ==
LOC: ERS 17:05 → 2SE 21:16
PROVIDERS: ADMIT Hospitalist; ATTEND Hospitalist
DX: G45.9 Transient cerebral ischemic attack, unspecified (principal); I25.10 Atherosclerotic heart disease of native coronary artery without angina pectoris; I12.9 Hypertensive chronic kidney disease with stage 1 through stage 4 chronic kidney disease, or unspecified chronic kidney disease; E11.22 Type 2 diabetes mellitus with diabetic chronic kidney disease; N18.3 Chronic kidney disease, stage 3 (moderate); D63.1 Anemia in chronic kidney disease; E78.5 Hyperlipidemia, unspecified; N40.0 Benign prostatic hyperplasia without lower urinary tract symptoms; I48.91 Unspecified atrial fibrillation; H54.62 Unqualified visual loss, left eye, normal vision right eye; K59.09 Other constipation; Z86.73 Personal history of transient ischemic attack (TIA), and cerebral infarction without residual deficits; Z79.01 Long term (current) use of anticoagulants; Z79.82 Long term (current) use of aspirin; Z79.899 Other long term (current) drug therapy; Z91.018 Allergy to other foods; Z95.5 Presence of coronary angioplasty implant and graft; Z95.810 Presence of automatic (implantable) cardiac defibrillator
CPT/HCPCS: 70450; 71045; 80048; 80053; 80061; 82550; 83880; 84484 ×2; 85025 ×2; 85610; 85730; 87086; 93005; 93306; 93880; 99285; G0378 ×3; 36415; 81003; 81015